=== PATIENT | male | born 1950 | race Caucasian/White ===

== ENCOUNTER 2022-09-22 11:48 | Emergency (ER) | payer MEDICARE, OTHER, SELFPAY ==
[2022-09-22 11:58] VITALS: BP 140/77; PULSE 55; RESP 16; TEMP 35.7; O2SAT 100
[2022-09-22 12:51] LABS: Lactate* 1.1 mmol/L (0.5-1.9)
[2022-09-22 12:54] LABS: Basophils Absolute Auto 0.01 K/uL (0.00-0.30); Basophils Percent Auto 0.1 % (0.0-3.0); Eosinophils Absolute Auto 0.13 K/uL (0.00-0.50); Eosinophils Percent Auto 1.7 % (0.0-7.0); Hematocrit 40.4 % (37.0-53.0); Hemoglobin* 13.5 gm/dL (13.5-17.5); Immature Granulocytes Abs Auto 0.05 K/uL (0.00-0.30); Immature Granulocytes Pct Auto 0.7 %; Lymphocytes Percent Auto 14.5 % (20-44); Mean Corpuscular HGB Conc 33 gm/dL (32-36); Mean Corpuscular Hemoglobin 27 pg (26-34); Mean Corpuscular Volume 81 fL (80-100); Monocytes Percent Auto 7.4 % (0.0-11.0); Neutrophils Percent Auto 75.6 % (42.0-72.0); Platelet Count* 121 K/uL (140-440); Red Blood Count 4.99 m/uL (4.30-5.90); White Blood Count* 7.53 K/uL (4.50-11.00)
[2022-09-22] MEDS: 0.9 % SODIUM CHLORIDE 1000 ml 1,000 ML IV (12:56)
[2022-09-22] MEDS: ONDANSETRON 2 MG/ML inj 4 MG IVP (12:56)
[2022-09-22 12:57] LABS: Slide Review Reflex No
[2022-09-22 13:09] LABS: Chloride* 107 mmol/L (96-114); Sodium* 139 mmol/L (135-149)
[2022-09-22 13:10] LABS: Potassium* 4.1 mmol/L (3.6-5.1)
[2022-09-22 13:11] LABS: D Dimer Quantitative* 0.32 ug/ml (0.00-0.50)
[2022-09-22 13:12] LABS: Creatinine* 0.9 mg/dL (0.5-1.5); Estimated Glomerular Filt Rate 91 ml/min
[2022-09-22 13:13] LABS: Alanine Aminotransferase* 18 U/L (4-50); Alkaline Phosphatase* 42 U/L (40-150); Aspartate Amino Transferase* 22 U/L (12-35); Bilirubin Direct* 0.1 mg/dL (0.0-0.5); Bilirubin Total* 0.5 mg/dL (0.1-1.5); Blood Urea Nitrogen* 28 mg/dL (7-30); Calcium* 8.9 mg/dL (8.4-10.6); Carbon Dioxide* 28 mmol/L (20-32); Glucose* 103 mg/dL (60-115); Lipase* 57 U/L (23-300); Total Protein* 6.6 g/dL (6.0-8.3)
--- NOTE | 2022-09-22 13:15 | CRLHL7_ITS ---
For Patients: As a result of the Century Cures Act, medical imaging exams and procedure reports are released immediately into your electronic medical record. You may view this report before your referring provider. If you have questions, please contact your health care provider. INDICATION: Abdominal pain. TECHNIQUE: CT abdomen and pelvis acquired with 95 cc Isovue 370 IV contrast. COMPARISON: None. FINDINGS: Lower chest: Scattered atelectasis. Liver: Mild decreased hepatic attenuation. Few scattered hypodensities, likely cysts. Gallbladder and bile ducts: Unremarkable. No stones or inflammation. No biliary dilatation. Pancreas: Fatty atrophy. No mass or inflammation. Spleen: Unremarkable. Normal in size. No masses. Adrenal glands: Unremarkable. No nodules. Kidneys: Right simple renal cyst. Additional hypodensities, too small to characterize.. No suspicious masses, stones, or hydronephrosis. GI tract: Mild colonic diverticulosis. Normal in caliber. Mild rectal wall thickening no sign of mass or inflammation. Vasculature: Abdominal aorta is normal in caliber. Mesenteric arteries are patent. Lymph nodes: No lymphadenopathy. Peritoneum/Abdominal Wall: Unremarkable. No sign of mass or infiltration. No free air or significant free fluid. Pelvis: Severe prostatomegaly abutting the base of the bladder. Mildly distended bladder with circumferential wall thickening. Bones: Degenerative changes. L4-L5 hardware fixation. Minimal anterolisthesis of L4 on L5. IMPRESSION: Severe prostatomegaly with mild circumferential bladder wall thickening, likely from chronic bladder outlet obstruction. Recommend correlation with urinalysis if UTI suspected. Mild rectal wall thickening which could suggest low grade proctitis. Otherwise, no acute intra-abdominal/pelvic abnormality. Please note that all CT scans at this facility use dose modulation, iterative reconstruction, and/or weight-based dosing when appropriate to reduce radiation dose to as low as reasonably achievable. Dictated by Conrad Gutierrez MD @ 09/22/2022 2:31:37 PM (Electronically Signed)
[2022-09-22 13:19] LABS: C Reactive Protein* < 0.5 mg/dL (0.5-1.0)
[2022-09-22 14:02] LABS: C.Difficile Negative (Negative); CDIFFEPI 027 PRESUMPTIVE NEGATIVE (Negative)
--- NOTE | 2022-09-22 17:15 | ED.NAVMDI ---
HPI - Nausea/Vomiting/Diarrhea General Date Seen: 09/22/22 Chief complaint: Diarrhea Stated complaint: Diarrhea, vomiting Time Seen by Provider: 09/22/22 12:10 Source: patient and family Mode of arrival: ambulatory Limitations: no limitations History of Present Illness HPI Narrative: Patient is a very nice 72-year-old gentleman who presents here with the 4-5 days of nausea vomiting and diarrhea as bowel movements have been anywhere from 6-8 times per day, described as yellow, no blood any there is vomitus or his diarrhea. He has some mild abdominal discomfort with this, but not great, he is worried that he may be dehydrated, has not been peeing a lot. He has been trying to take fluids. He does have a history of prostatitis, does take Flomax and also something for spasmodic bladder. Denies any fevers chills or sweats but recently came back from [place]. His was here with him was not sick at all. No history of antibiotic use within the past 3 months, and he has no history of C diff. MD elicited complaint: nausea, vomiting and diarrhea Treatment prior to arrival: Imodium Related Data Allergies Allergy/AdvReac Type Severity Reaction Status Date / Time No Known Drug Allergies Allergy Verified 09/22/22 13:37 Review of Systems Status of ROS: Reports: 10 or more systems reviewed and unremarkable except as noted in History and below [facility] Social History Smoking Status: Never smoker Do you use any of these nicotine containing products: None Second hand tobacco smoke exposure: No How often do you have a drink containing alcohol: never How often do you have six or more drinks on one occasion: Never AUDIT-C Alcohol total score: 0 Non-prescribed substance use: denies use service: No Exam Narrative: Exam Narrative: Dog is seen in room 6 he is in no apparent distress, speaking to me normally his right pupil is normal 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 Scaphoid abdomen, normal male genitalia, is noted. Extremities are all normal there is no do week complexion to his skin, he has good power in his upper lower extremities cranial nerves 3-12 are normal, and no deficits are noted. Const: Vital Signs, click to edit/add: Vital Signs - 24 hr 09/22/22 11:58 Temperature 96.2 F L Pulse Rate [Pulse Oximeter] 55 L Respiratory Rate 16 Blood Pressure [Ri ght Upper Arm] 140/77 H Pulse Oximetry 100 Oxygen Delivery Me thod Room Air Documenting provider has reviewed patient's vital signs: yes Course Course Hospital Course: Patient receives Zofran IV along with IV fluids here felt fair bit better, recheck of his abdomen showed no significant pain, I went over the results of his CT and his laboratory tests with him. Does have some mild thrombocytopenia, and there is no evidence of a C diff infection, his lactate was normal, his BUN creatinine were normal, he feels better. I think a better option for him going forward be use of Pepto-Bismol, 1 tablet 3 times a day, along with some Zofran, as opposed to the Imodium, is ongoing problem than stool test would be important, but a seems to be doing very well at the present time he was very comfortable this plan he will be discharged ambulatory with the above advice. We will see him back if he has signs and symptoms of worsening which we discussed. Vital Signs Vital signs: Initial Vital Signs Temperature 96.2 F L 09/22/22 11:58 Temperature Source Temporal Artery Scan 09/22/22 11:58 Pulse Rate 55 L 09/22/22 11:58 Pulse Rhythm Regular 09/22/22 11:58 Respiratory Rate 16 09/22/22 11:58 Blood Pressure 140/77 H 09/22/22 11:58 Blood Pressure Mean 98 09/22/22 11:58 Pulse Oximetry 100 09/22/22 11:58 Oxygen Delivery Method Room Air 09/22/22 11:58 Vital Signs Temperature 96.2 F L 09/22/22 11:58 Pulse Rate 55 L 09/22/22 11:58 Respiratory Rate 16 09/22/22 11:58 Blood Pressure 140/77 H 09/22/22 11:58 Pulse Oximetry 100 09/22/22 11:58 Oxygen Delivery Method Room Air 09/22/22 11:58 Temperature 96.2 F L 09/22/22 11:58 Pulse Rate 55 L 03/30/23 11:58 Respiratory Rate 16 09/22/22 11:58 Blood Pressure 140/77 H 09/22/22 11:58 Pulse Oximetry 100 09/22/22 11:58 Oxygen Delivery Method Room Air 09/22/22 11:58 MDM - Nausea/Vomiting/Diarrhea MDM Narrative Medical decision making narrative: Differential diagnosis includes but is not limited to viral gastroenteritis, drug food poisoning, pyloric stenosis, gastritis, pancreatitis, hepatitis, cholecystitis, appendicitis, bowel obstruction, hyperemesis, cyclic vomiting syndrome, bulimia nervosa, migraine headache, motion sickness and medication side effect. These include the life threatening complications of appendicitis, drug food poisoning and bowel obstruction. Differential diagnosis considered include but not limited to viral gastroenteritis, food poisoning, bowel obstruction, Clostridium difficile, Campylobacter, Shigella, rotavirus, medication side effects, dysentery, diverticulitis, Crohn's disease and colitis Medical Records Attestation: I reviewed the patient's medical records. Lab Data Attestation: I reviewed the patient's lab results. Labs: Lab Results 09/22/22 09/22/22 09/22/22 Range/Units 12:27 12:28 12:46 WBC 7.53 (4.50-11.00) K/uL RBC 4.99 (4.30-5.90) m/uL Hgb 13.5 (13.5-17.5) gm/dL Hct 40.4 (37.0-53.0) % MCV 81 (80-100) fL MCH 27 (26-34) pg MCHC 33 (32-36) gm/dL RDW Coeff of Ruth 13.0 (11.5-15.5) % Plt Count 121 L (140-440) K/uL Neut % (Auto) 75.6 H (42.0-72.0) % Lymph % (Auto) 14.5 L (20-44) % [facility] % (Auto) 7.4 (0.0-11.0) % Eos % (Auto) 1.7 (0.0-7.0) % Baso % (Auto) 0.1 (0.0-3.0) % Neut # (Auto) 5.70 (1.7-7.0) K/uL Lymph # (Auto) 1.10 (0.90-2.90) K/uL [facility] # (Auto) 0.60 (0.00-0.90) K/UL Eos # (Auto) 0.13 (0.00-0.50) K/uL Baso # (Auto) 0.01 (0.00-0.30) K/uL D-Dimer Quant (PE/DVT) 0.32 (0.00-0.50) ug/ml Sodium 139 (135-149) mmol/L Potassium 4.1 (3.6-5.1) mmol/L Chloride 107 (96-114) mmol/L Carbon Dioxide 28 (20-32) mmol/L BUN 28 (7-30) mg/dL Creatinine 0.9 (0.5-1.5) mg/dL Estimated GFR 91 ml/min Glucose 103 (60-115) mg/dL Lactate 1.1 (0.5-1.9) mmol/L Calcium 8.9 (8.4-10.6) mg/dL Total Bilirubin 0.5 (0.1-1.5) mg/dL Direct Bilirubin 0.1 (0.0-0.5) mg/dL AST 22 (12-35) U/L ALT 18 (4-50) U/L Alkaline Phosphatase 42 (40-150) U/L C-Reactive Protein < 0.5 L (0.5-1.0) mg/dL Total Protein 6.6 (6.0-8.3) g/dL Albumin 4.0 (3.3-5.0) g/dL Lipase 57 (23-300) U/L Stl C.difficile Tox PCR Negative (Negative) St C. diff Tox Epid 027 PRESUMPTIVE NEGATIVE (Negative) POC Troponin I 0.00 L (0.01-0.04) ng/ml Imaging Data CT scan - abdomen: Attestation: I have reviewed the pertinent imaging results. My impression: I did not see anything acute on his abdomen. Radiologist's impression: Patient: [facility] Facility:?[facility] Patient ID:?[id number] Site Patient ID:?[id number]. Site :?[id number] Study:?CT Abdomen/Pelvis W/ 95CC [id number]/30/2023 1:48:30 PM Ordering Physician:Bernadine Mast Final Report: INDICATION: Abdominal pain. TECHNIQUE: CT abdomen and pelvis acquired with 95 cc Isovue 370 IV contrast. COMPARISON: None. FINDINGS: Lower chest: Scattered atelectasis. Liver: Mild decreased hepatic attenuation. Few scattered hypodensities, likely cysts. Gallbladder and bile ducts: Unremarkable. No stones or inflammation. No biliary dilatation. Pancreas: Fatty atrophy. No mass or inflammation. Spleen: Unremarkable. Normal in size. No masses. Adrenal glands: Unremarkable. No nodules. Kidneys: Right simple renal cyst. Additional hypodensities, too small to characterize.. No suspicious masses, stones, or hydronephrosis. GI tract: Mild colonic diverticulosis. Normal in caliber. Mild rectal wall thickening no sign of mass or inflammation. Vasculature: Abdominal aorta is normal in caliber. Mesenteric arteries are patent. Lymph nodes: No lymphadenopathy. Peritoneum/Abdominal Wall: Unremarkable. No sign of mass or infiltration. No free air or significant free fluid. Pelvis: Severe prostatomegaly abutting the base of the bladder. Mildly distended bladder with circumferential wall thickening. Bones: Degenerative changes. L4-L5 hardware fixation. Minimal anterolisthesis of L4 on L5. IMPRESSION: Severe prostatomegaly with mild circumferential bladder wall thickening, likely from chronic bladder outlet obstruction. Recommend correlation with urinalysis if UTI suspected. Mild rectal wall thickening which could suggest low grade proctitis. Otherwise, no acute intra-abdominal/pelvic abnormality. Please note that all CT scans at this facility use dose modulation, iterative reconstruction, and/or weight-based dosing when appropriate to reduce radiation dose to as low as reasonably achievable. Dictated by Conrad Gutierrez MD @ 09/22/2022 2:31:37 PM (Electronic Signature) Discharge Plan Discharge Clinical Impression: Gastroenteritis Patient Disposition: Home w/ Parent or Adult Condition: Stable Instructions: Acute Nausea and Vomiting (DC), Acute Diarrhea (ED) Additional Instructions: Home rest. Use of yogurt, fluids, cheese, those sort of things, to help this resolve. Use of Zofran prescription given, this also helps nausea and also slows down bowel movements, switching from Imodium to maybe a Pepto-Bismol would be a better idea. Take 1 tablet 3 times a day for the next 5 days. Coke helps the situation too. Return for increasing abdominal pain, fevers, chills, or sweats or other issues I would suggest to come back and be seen, reassuring laboratory results here today and CT. I would suggest follow-up with urology for your enlarged prostate, as noted on the CT. Follow Up/Referrals: RAJESH NUNEZ DO [Primary Care Provider] - Stand Alone Forms: [employer] Info Instructions
== END 2022-09-22 15:35 | disposition home or self-care (01) ==
PROVIDERS: Emergency Provider Family Medicine; PCP Student in an Organized Health Care Education/Training Program
DX: K52.9 Noninfective gastroenteritis and colitis, unspecified (principal)
CPT/HCPCS: 36415; 74177; 80048; 80076; 83605; 83690; 84484; 85025; 85379; 86140; 87493; 93005; 96361; 96374; 99284; 99285; J2405; J7030; Q9967

== ENCOUNTER 2023-12-07 13:35 | Emergency (ER) | payer MEDICARE, OTHER, SELFPAY ==
[2023-12-07] VITALS (15 sets, daily range): BP systolic 140–151; BP diastolic 77–85; PULSE 49–58; RESP 16–18; TEMP 36.2; O2SAT 87–100; BMI 25.7
--- OUTSIDE RECORDS SUMMARY | 2023-12-07 13:40 | XMS_ITS | Clinical Summary ---
Author Organization [facility] Address [address] [place] [address] Care Team Providers Care Thorough[employer] Horse [employer] Manager Name Role Phone Elsewhere, Pcp Primary Care Provider Unavailabl e Source Comments Patient records contain information from all sites at [facility]. For routine questions regarding patient records, call [phone] during business hours, M-F 8:00 AM - 5:00 PM Central Time. Record requests for emergency care only can be directed to [phone] at any time.[facility] Allergies No known active allergies Medications Medication Sig Dispensed Refills Start Date End Date Status aspirin [address] tablet Take 81 mg by mouth every morning. Active tamsulosin (FLOMAX) 0.4 mg 24 hr capsule Take 0.4 mg by mouth every morning. Active cholecalciferol, vitamin D3, 25 mcg (1,000 Unit) tablet Take 2 tablets by mouth every morning. 10/27/2014 Active busPIRone (BUSPAR) 15 mg tablet Take 15 mg by mouth 2 (two) times a day. Takes at 9:00 AM and 2:00 PM 07/01/2020 Active dextroamphetamine-amp hetamine (ADDERALL) 20 mg tablet Take 20 mg by mouth daily. Takes between 2:00 - 3:00 PM 06/21/2020 Active amphetamine-dextroamp hetamine (ADDERALL XR) 30 mg 24 hr capsule Take 30 mg by mouth daily. Takes between 9:00 and 10:00 AM 06/21/2020 Active sertraline (ZOLOFT) 50 mg tablet Take 50 mg by mouth every morning. 11/30/2021 Active omeprazole (PriLOSEC) [address] capsule Take 20 mg by mouth 2 (two) times a day before breakfast and dinner. 08/23/2022 Active oxyBUTYnin (DITROPAN-XL) 10 mg 24 hr tablet Take 20 mg by mouth daily. 06/02/2022 Active allopurinoL (ZYLOPRIM) 100 mg tablet Take 200 mg by mouth daily. 08/15/2022 Active indomethacin (INDOCIN) 50 mg capsule Take 50 mg by mouth every 6 (six) hours as needed (gout flares). 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/23/2023 Radiculopathy Cervical 01/23/2023 Overactive Bladder 01/23/2023 Gout 01/23/2023 Fusion Of Spine Lumbar Region 01/23/2023 Arthroplasty Total Shoulder Replacement Status P ost Right 01/23/2023 Apnea Sleep Obstructive 03/07/2022 Contracture Dupuytren's 04/22/2020 Overview: Added automatically from request for surgery [id number] Anophthalmos Acquired 07/09/2018 Melanoma Choroid Left 06/30/2014 Attention Deficit Hyperactive Disorder 4 Overview: Disorder Attention Deficit Hyperactive (ADHD) Depressive Disorder 04/23/2014 Overview: Depression NOS Personal History Of Malignant Neoplasm Of Prosta te 05/12/2011 Gastroesophageal Reflux Disease NOS 09/17/2010 Benign Prostatic Hyperplasia With Lower Urinary Tract Symptom 07/07/2010 Hyperlipidemia Mixed 11/05/2008 Overview: Suggest recheck fall 2008 Anxiety Generalized Disorder 11/13/2006 Major Depressive Disorder, Recurrent, Unspecifie d 11/13/2006 Neuropathy Ulnar Bilateral Resolved Problems Problem Noted Date Diagnosed Date Resolved Date 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 01/23/2023 Overview: Added automatically from request for surgery [id number] Ectropion Left 07/27/2020 01/23/2023 Overview: Added automatically from request for surgery [id number] Ptosis Eyelid Left 07/09/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 02/03/2023 Pancytopenia 02/24/2017 01/23/2023 Limitation Of Motion Hand Joint Right 01/23/2023 Immunizations Name Administration Dates Next Due HepA, Unspecified 05/04/2009 Influenza, Unspecified 04/09/2014 Tdap 11/14/2013 typhoid vaccine, parenteral (discontinued) 05/05 Family History Medical History Relation Name Comments ADD Brother 1 stephon Coronary artery disease Brother 1 stephon Hyperlipidemia Brother 1 stephon ADD Brother 2 ronnie Coronary artery disease Brother 2 ronnie Coronary artery disease Father emeli Hyperlipidemia Father emeli Transient ischemic attack Father emeli Coronary artery disease Mother kayden Dementia Mother kayden Hyperlipidemia Mother kayden Blindness Neg Hx Diabetes Neg Hx Glaucoma Neg Hx Macular degeneration Neg Hx Retinal degeneration Neg Hx Retinal detachment Neg Hx Strabismus Neg Hx Stroke Neg Hx Thyroid disease Neg Hx Relation Name Status Comments Brother 1 stephon Brother 2 ronnie Father emeli Mother kayden Social History Tobacco Use Types Packs/Day Years Used Date Smoking Tobacco: Former Cigarettes 0.3 4 0 06/26/1970 - 06/26/1974 Smokeless Tobacco: Never Tobacco Cessation:Counseling Given: Not Answered Alcohol Use Standard Drinks/Week Comments Yes 5 (1 standard drink = 0.6 oz pur e alcohol) Humiliation, Afraid, Rape, and Kick questionnair e Answer Date Recorded Within the last year, have y ou been afraid of your partner or ex-partner? No 01/23/2023 Within the last year, have y ou been humiliated or emotionally abused in other ways by your partner or ex-partner? No Within the last year, have y ou been kicked, hit, slapped, or otherwise physically hurt by your partner or ex-partner? No 01/23/2023 Within the last year, have y ou been raped or forced to have any kind of sexual activity by your partner or ex-partner? No 01/23/2023 Social Connection and Isolat ion Panel [NHANES] Answer Date Recorded In a typical week, how many times do you talk on the phone with family, friends, or neighbors? Once a week 11/23/2021 How often do you get togethe r with friends or relatives? Twice a week 11/23/2021 How often do you attend chur or church services? More than 4 times per year 11/23/2021 Do you belong to any clubs o r organizations such as mu-ism groups, unions, fraternal or athletic groups, or school groups? Yes 11/23/2021 How often do you attend meet ings of the clubs or organizations you belong to? More than 4 times per year 11/23/2021 Are you , , di vorced, , never , or living with a partner? 11/23/2021 AUDIT-C Answer Date Recorded Q1: How often do you have a drink containing alcohol? 4 or more times a week 11/23/2021 Q2: How many drinks containi ng alcohol do you have on a typical day when you are drinking? 1 or 2 2 Q3: How often do you have si x or more drinks on one occasion? Less than monthly 11/23/2021 Overall Financial Resource Strain (CARDIA) Answe r Date Recorded How hard is it for you to pa y for the very basics like food, housing, medical care, and heating? Not hard at all 01/23/2023 [facility] [place] [facility] - Occupational Stress Questionnaire Answer Date Recorded Do you feel stress - tense, restless, nervous, or anxious, or unable to sleep at night because your mind is troubled all the time - these days? Only a little 11/23/2021 Exercise Vital Sign Answer Date Recorde d On average, how many days pe r week do you engage in moderate to strenuous exercise (like a brisk walk)? 5 days 01/23/2023 On average, how many minutes do you engage in exercise at this level? 60 min 01/23/2023 Hunger Vital Sign Answer Date Recorded Within the past 12 months, y ou worried that your food would run out before you got the money to buy more. Never true 01/24/20 23 Within the past 12 months, t he food you bought just didn't last and you didn't have money to get more. Never true 01/23/2023 PRAPARE - Transportation Answer Date Re corded In the past 12 months, has l ack of transportation kept you from medical appointments or from getting medications? No 12/26 In the past 12 months, has l ack of transportation kept you from meetings, work, or from getting things needed for daily living? No 01/23/2023 Nutrition Answer Date Recorded Nutrition: EVOO Fat Source No 01/23 On average, how many serving s of fruits and vegetables do you eat per day (serving size is equal to 1 cup or approximately the size of a tennis ball)? 3-5 01/23/2023 Dental Answer Date Recorded Dental: Regular Dentist No 01/24/20 Employment Answer Date Recorded Employment status Retired 01/23/2023 Housing Stability Answer Date Recorded What is your living situation today? I have a [facility] place to live 01/23/2023 Education Answer Date Recorded What is the highest level of school you have completed or the highest degree you have received? Bachelor's degree (e.g., BA, AB, BS) 04/22/2020 Sex and Gender Information Value Date Recorded Sex Assigned at Male 07/09/2018 2:54 PM [employer] Gender Identity Male 07/09/2018 2:54 PM [employer]ER Sexual Orientation Straight 07/09/2018 2: 54 PM [employer] M[employer]ER Last Filed Vital Signs Vital Sign Reading Time Taken Comments Blood Pressure 123/75 02/16/2023 12:38 PM CDT Pulse 70 02/16/2023 12:38 PM CDT Temperature 36.7 ??C (98.1 ??F) 02/16/2023 12:38 PM C DT Respiratory Rate 16 02/16/2023 8:11 AM CDT Oxygen Saturation 95% 02/16/2023 12:38 PM CDT Inhaled Oxygen Concentration - - Weight 90.4 kg (199 lb 4.7 oz) 02/15/2023 8:51 A M CDT Height 182.5 cm (5' 11.85) 02/15/2023 8:51 AM C DT Body Mass Index 27.14 02/15/2023 8:51 AM CDT Plan of Treatment Health Maintenance Due Date Last Done Comments CT Colonography 1950 Cologuard 1950 Depression Monitoring (PHQ-9) 1950 Hepatitis C Screening 1950 Zoster Vaccines (2 of 3) 02/24/2016 12/30/2015, 06/2015 Lipid (Cholesterol) Screening 06/29/2021, 09/19/2018, 04/10/2018, Additional history exists Fall Risk Screen (Annual) 06/26/2023 COVID-19 Vaccine (7 - 2022-2 4 season) 2023 04/15/2023, 05/16/2022, 11/24/2021, Additional history exists DTaP,Tdap,and Td Vaccines (2 - Td or Tdap) 11/15/2023 11/14/2013, 05/02/2012, 07/03/2007 Colonoscopy 07/23/2024 07/23/2019, 02/2014, 12/04/2013 (Performed elsewhere) Colorectal Cancer Surveillance 07/23/2024 Fasting Glucose for Diabetes Screening 06/08/2026 06/08/2023, 01/31/2023, 08/01/2022, Additional history exists Pneumococcal vaccine (65+ years) Completed 12/15/19, 10/31/2016 Hepatitis A Vaccines Completed 04/25/2019, 05/05/2009, 05/04/2009 Influenza Vaccine Completed 04/15/2023, , 02/24/2021, Additional history exists Abdominal Aortic Aneurysm (A AA) Screen Completed 07/28/2023, 12/06/2021, 04/16/2020, Additional history exists Medical Devices Implanted Type Area Ammunition Assembly I Laborer Device Identifier Shelf Expiration Date Model / Serial / Lot Cement Bone Small - Garcia [id number] Implanted:Qty: 1 on 05/27/2011 [facility] Other [place] Description:Device Manufactu rer - [place] Marvin.. Device Status Text - [id number]. Medpor - Maritza Wedge Left Regular - Garcia [id number] Implanted:Qty: 1 on 10/29/2014 [facility] Prosthesis Other/Legacy - See Implant Description Other/Legacy - See Implant Description Description:Device Manufactu rer - [employer]. Body Location - Other. Left. Device Status Text - [facility] [id number]. Sphere Medpor Sst Ez 20mm - [id number] Implanted:Qty: 1 on 07/02/2014 Ocular (Eye) Implant Other/Legacy - See Implant Description Other/Legacy - See Implant Description Description:Device Manufactu rer - [employer]. Body Location - Other. Left. Device Status Text - [id number]. Conformer [place] Medium - [id number] Implanted:Qty: 1 on 07/02/2014 Ocular (Eye) Implant Other/Legacy - See Implant Description [employer] Description:Device Manufactu rer - [employer]. Body Location - Other. Left. Device Status Text - [id number]. Reunion-Hum Stem Press-Fit 14mm - [id number] Implanted:Qty: 1 on 05/27/2011 Shoulder Implant Other/Legacy - See Implant Description Shanell Description:Device Manufactu rer - Shanell Marvin.. Body Location - Other. Right. Device Status Text - [id number]. Reunion-Glenoi d S-Pressure X3 Sz48 - [id number] Implanted:Qty: 1 on 05/27/2011 Shoulder Implant Other/Legacy - See Implant Description [place] Description:Device Manufactu rer - Shanell Marvin.. Body Location - Other. Right. Device Status Text - [id number]. Reunion-Soo l Head Std 48 X 24 - [id number] Implanted:Qty: 1 on 05/27/2011 Shoulder Implant Other/Legacy - See Implant Description Shanell Description:Device Manufactu rer - Shanell Marvin.. Body Location - Other. Right. Device Status Text - [id number]. Conversions - Default Historical Implant Device Implanted:12/25 (Quantity not on file) Shoulder Implant Right: Shoulder Description:Body Location - Shoulder R. TSA. Device Status Text - Shoulder Joint. Hum Cup Reu 4x36 - [id number] Implanted:Qty: 1 on 02/15/2023 by Douglas Lipscomb M.D., Ph.D. at [facility] Shoulder Implant Right: Shoulder [place] 01/30/2027 [id number] / / [id number] Hum Ins Reu X3 Rvrs 10x36 - [id number] Implanted:Qty: 1 on 02/15/2023 by Douglas Lipscomb M.D., Ph.D. at [facility] Shoulder Implant Right: Shoulder Shan[place] 01/25/2027 [id number] / / [id number] Tornier Perform Reversed Glenoid, Press-Fit Short Post, Length: 7mm Implanted:Qty: 1 on 02/15/2023 by Douglas Lipscomb M.D., Ph.D. at [facility] Shoulder Implant Right: Shoulder [facility] 12/23/2027 [id number] / [id number] / Tornier Perform Reversed Augmented Glenoid, Full-Wedge Augment Baseplate, 29mm, Angle: 15 Degree Implanted:Qty: 1 on 02/15/2023 by Douglas Lipscomb M.D., Ph.D. at [facility] Shoulder Implant Right: Shoulder [facility] 12/31/2027 [id number] / [id number] / Tornier Perform Reversed Glenoid, Eccentric Glenosphere Cocr, Diameter: 36mm, Offset +2mm Implanted:Qty: 1 on 02/15/2023 by Douglas Lipscomb M.D., Ph.D. at [facility] Shoulder Implant Right: Shoulder [facility] 10/07/2027 [id number] / [id number] / Conversions - Default Historical Implant Device Implanted:12/25 (Quantity not on file) Spine Implant Spine Lumbar Description:Body Location - Lumbar. Device Status Text - Spine Implant. Explanted Type Area Ammunition Assembly I Laborer Device Identifier Shelf Expiration Date Model / Serial / Lot Splnt Ext Fx Dgt Pip Jnt Lg - [id number] Implanted:Qty: 1 on 06/03/2020 by Mehdi Diego M.D. at [facility]/[employer] e.g. pins/screws/ rods [employer] 05/26/2029 [id number] / / [id number] Procedures Procedure Name Priority Date/Time Associated Diagnosis Comments CT ABDOMEN PELVIS WITH IV CONTRAST RAD - Routine (most inpatients and all outpatients) 07/28/2023 9:48 AM [employer] M[employer]ER Melanoma Choroid Left (HCC) EXTI COMPREHENSIVE METABOLIC PANEL, S/P Routine 06/08/2023 3:55 PM [employer] M[employer]ER EXTI LIPID PANEL W REFLEX MEASURED LDL Routine 06/29/2020 10:48 AM E[employer] SPICE MIXER from Last 3 Months or Most Recently Relevant to Health Maintenance Results * CT Abdomen Pelvis with IV Contrast (07/28/2023 9:48 AM E[employer] AND SPICE MIXER) Anatomical Region Laterality Modality Abdomen, Pelvis, Abdominal R ST LOS, Abdominal ARZ LOS, Abdominal FLA LOS N/A Computed Tomograp hy, Computed Tomography 07/28/2023 9:25 AM E[employer]ICE MIXER Impressions 07/28/2023 10:23 AM E[employer] SPICE MIXER 1. No evidence of metastatic disease within abdomen pelvis. 2. Stable incidental findings. Narrative 07/28/2023 10:23 AM E[employer] AND SPICE MIXER EXAM: ??CT ABDOMEN PELVIS WITH IV CONTRAST COMPARISON: ??Prior CT 12/23/[address]/MRI scans. FINDINGS: ??Normal size and morphology of liver. Previously seen hepatic cysts remain stable. No significant intrahepatic biliary ductal dilatation. Intrahepatic vasculature within normal limits. Mild splenomegaly. The pancreas, gallbladder, adrenal glands are within normal limits. Stable renal cysts. The bladder is distended and minimally thick-walled. The prostate gland is markedly enlarged. No significant adenopathy within abdomen pelvis. No ascites. Previously seen tiny presacral lymph nodes remain stable (series 4, image [id number]). Colonic diverticulosis. Normal caliber abdominal aorta with minimal scattered calcification. Mild to moderate degenerative changes thoracolumbar vertebrae with stable lower lumbar spinal fixation hardware/surgery changes. This examination was performed in conjunction with a CT of the chest, which will be reported separately. Procedure Note Wolf Villalta M.B.B.S. [place]. - 07/28/2023 EXAM: CT ABDOMEN PELVIS WITH IV CONTRAST COMPARISON: Prior CT 12/23/[address]/MRI scans. FINDINGS: Normal size and morphology of liver. Previously seen hepaticcysts remain stable. No significant intrahepatic biliary ductaldilatation. Intrahepatic vasculature within normal limits. Mild splenomegaly. The pancreas, gallbladder, adrenal glands are withinnormal limits. Stable renal cysts. The bladder is distended and minimallythick-walled. The prostate gland is markedly enlarged. No significant adenopathy within abdomen pelvis. No ascites. Previouslyseen tiny presacral lymph nodes remain stable (series 4, image [id number]).Colonic diverticulosis. Normal caliber abdominal aorta with minimalscattered calcification. Mild to moderate degenerative changes thoracolumbar vertebrae with stablelower lumbar spinal fixation hardware/surgery changes. This examination was performed in conjunction with a CT of the chest,which will be reported separately. IMPRESSION: 1. No evidence of metastatic disease within abdomen pelvis. 2. Stable incidental findings. Chyna Hanks M.D. IMG CT PROCEDURES from Last 3 Months or Most Recently Relevant to Health Maintenance Care Teams Thor[employer] Horse [employer] Manager Relationship Specialty Start Date End Date Elsewhere, Pcp PCP - General Internal Medicine 02/01/23
--- OUTSIDE RECORDS SUMMARY | 2023-12-07 13:40 | XMS_ITS | Continuity of Care Document ---
Author Organization [facility] Address [address] [place] [address] Phone Care Team Providers Care Picture Frames Inspector Name Role Phone Christiano KILPATRICK, [place] Unavailable Unavailable Allergies, Adverse Reactions, Alerts Substance Reaction Status Criticality No Known Allergies Active No Inform ation Medications Medication Instructions Dosage Effective Dates (start - stop) Status Comments Vicodin 5 mg-500 mg Tab one every 8 hours as needed - Active Celebrex 200 mg Cap One every day - Ac tive Procedures Procedure Date Office/Outpatient Visit,New, Mod 2020 X Ray Exam Entire Spine 2/3 VW 21 X-Ray Exam Of Lower Spine, Bending X Ray Exam Entire SPI 4/5 VW Office/outpatient visit,est, low 2008 X-ray exam lwr spine, min 4 views Postop followup visit X-ray exam lower spine 2-3 views 2007 Postop followup visit X-ray exam lower spine 2-3 views 2007 Lumbar spine fusion, posterolateral Lumbar spine fus, pstr intrbdy sngl Remove lumbar spine lamina, 1 seg Remove added spine lamina, 1 seg 2007 Insert spine fixation, posterior 2007 Apply spinal prosthetic device 08 Aspiration, bone marrow Autograft, spine surgery, local 008 PA Assist Lumbar spine fusion, posterola teral PA Assist Lumbar spine fus, pstr intrbdy sngl PA Assist Remove lumbar spine lamina, 1 seg PA Assist Remove added spine lamina, 1 s eg PA Assist Insert spine fixation, posteri or PA Assist Apply spinal prosthetic device Office/outpatient visit,est, mod 2007 Office/outpatient visit,new, mod 2006 X-ray exam lower spine 2-3 views 2006 Results Test Name Date and Time Measure Units Reference Range Abnormal Flag Status Comments Panel Description: Transfora kenny Etxxzcf-Trjesi-Zpzayacqynuyfj (TRANSLUMNONPART) Unknown TRANSLUMNONPART 21 17:25:19 (See Attached Document) Unknown (See Attached Document) Panel Description: Transfora kenny Cplztpi-Nwtfkp-Urbphykmeuaynv (TRANSLUMNONPART) Unknown Image Transforaminal Kcjqmpk-Wcgukt-O onparti Advance Directives Directive Yes / No Effective Date File Name No Information Encounters Encounter Description Practice Location Reason(s) For Visit Diagnoses Date Provider Providers Copied on Encounter Office/Outpat ient Visit,New, Mod [facility], [address], [place], [place], [id number], [place] tel:[phone] [facility] No Information 1 Christiano Bethea. [facility], [address] [place] [address], [address], [place], [place], [id number] , [place]. tel:[phone] Referring Provider: [place], [facility] [address], [address], [place], [address] . tel:[phone] Office/outpat ient visit,est, low Z [facility], [address] [place], [place] [address], [place], [address], [place] tel:[phone] [facility] No Information 8200 9 Christiano Bethea. [facility], [address] [place] [address], [address], [place], [place], [id number] , [place]. tel:[phone] Referring Provider: Matthew Vergara, [facility] [address] [facility], [place], [address]. tel:[phone] Z [facility], [address] [place], [place] [address] [place] [address], [address], [place] tel:[phone] [facility] No Information 3-200 8 [place]. [facility], [address] [place] [address], [address], [place], [id number] , [place]. tel:[phone] Referring Provider: Matthew Vergara, [address], [place], [address]. tel:[phone] Z [facility], [address], [facility], [place] tel:[phone] [facility] No Information 9-200 8 [place]. [facility], [address] [place] [address] [place] [address], [id number] , [place]. tel:[phone] Referring Provider: Matthew Vergara, [address], [place], [address]. tel:[phone] Z [facility], [address], [address], [place] tel:[phone] [facility] No Information 6-200 8 [place]. [facility], [address] [place] [address], [address], [place], [id number] , [place]. tel:[phone] Referring Provider: Matthew Vergara [facility] [address] [facility], [place], [address]. tel:[phone] Office/outpat ient visit,est, mod Z [facility], [address] [place], [place] [address] [place] [address], [address], [place] tel:[phone] [facility] No Information 8-200 8 [place]. [facility], [address] [place] [address], [address], [place], [id number] , . tel:[phone] Referring Provider: [facility], [facility] [address], [place], [address]. tel:[phone] Office/outpat ient visit,new, mod Z [facility], [address] [facility] [address], [place], [address], [place] tel:[phone] [facility] No Information 6200 7 Christiano Bethea. [facility], [address] [place] [address], [address], [place], [place], [id number] , [place]. tel:[phone] Referring Provider: Matthew Vergara, [facility] [address], [place], [address]. tel:[phone] Family History Family Member Type Diagnosis Age At Onset No Information Payers Payer name Insurance type Covered alliance party ID Jj mcgregor(s) Medicare MB [id number] [employer] [id number] Social History Type Description Quantity Date Captured Comments Alcohol Use Details Unknown Caffeine Use Details Unknown Tobacco Use Status Current non-smoker Smoking Status Never smoker Non-Smoking Tobacco Use Details : No Details Available : No Details Available Sex Male Vital Signs Date / Time: Height Weight BMI Pulse Rate Blood Pressure Temperature Respiratory Rate Body Surface Area Head Circumference Head Circ. Percentile Wt./Rolando. Percentile BMI percentile Pulse Ox Inhaled Ox 2:13 PM 73.00 in 94.347 kg (208.00 lbs) 27.4 4 kg/m eter (2) Chief Complaint And Reason For Visit No Information Reason For Referral Reason For Referral No Information Plan Of Treatment Date Type Action Status Future Order: Radiology Order PA /Lateral Full Spine (PALatFS), Ordered on: Ordered Future Order: Radiology Order F/ E Lumbar (F/ELumb), Ordered on: Ordered History Of Present Illness Encounter Date Complaint History Of Prese nt Illness No Information Functional Status Date Functional Assessmen t No Information Instructions Date Instruction Additional Infor mation No Information Assessments Type Assessment Date No Information Patient Care Teams Name Effective Dates (start - stop) Status Members No Information
--- OUTSIDE RECORDS SUMMARY | 2023-12-07 13:40 | XMS_ITS | Clinical Summary ---
Author Organization [employer] Address [place], [place] [address] Care Team Providers Care Drafting Engineer Name Role Phone Raza Marks MD Unavailable Unavailable River Daryb MD Unavailable Cathleen Patel DO Primary Care Provider Laura Trimble MD Unavailable Marva Bran NP Unavailable Allergies No known active allergies Medications Medication Sig Dispensed Refills Start Date End Date Status docusate (STOOL SOFTENER) 100 mg capsuleIndications :Unspecified constipation Take 1 capsule by mouth 2 times daily if needed for Constipation. 0 07/07/2010 Active cholecalciferol (Vitamin D) 1,000 unit capsuleIndications :Vitamin D deficiency Take 1 Capsule (1,000 units) by mouth once daily. 0 07/01/2021 Active aspirin (ECOTRIN) 81 mg enteric coated tabletIndications: Blue toe syndrome of right lower extremity (HC) Take 1 Tablet (81 mg) by mouth once daily with a meal. 0 07/01/2021 Active indomethacin (INDOCIN) 50 mg capsuleIndications :Gout, unspecified cause, unspecified chronicity, unspecified site Take 1 Capsule (50 mg) by mouth every 6 hours if needed for Gout Pain. 30 Capsule 03/17/2023 Active albuterol HFA (ProAir HFA) 90 mcg/actuation inhalerIndications :Bronchitis with bronchospasm Inhale 1-2 Puffs by mouth every 6 hours if needed for Shortness of Breath 1st choice. 1 Each 07/03/2023 Active benzonatate (Tessalon Perles) 100 mg capsuleIndications :Bronchitis with bronchospasm Take 1 Capsule (100 mg) by mouth 3 times daily if needed for Cough. 30 Capsule 07/03/2023 Active triamcinolone 0.1 % ointmentIndication s:Pruritus Apply to affected areas on the arms, legs, and trunk. 453.6 g 2 07/18/2023 Active allopurinoL (ZYLOPRIM) 100 mg tabletIndications: Gout of big toe Take 3 Tablets (300 mg) by mouth once daily. Take 3 tablets by mouth daily 270 Tablet 1 08/01/2023 Active busPIRone (BUSPAR) 15 mg tabletIndications: Anxiety state Take 1 Tablet (15 mg) by mouth two times daily. 180 Tablet 1 08/01/2023 Active omeprazole (PRILOSEC) 20 mg Delayed-Release capsuleIndications :Gastroesophageal reflux disease with esophagitis without hemorrhage Take 1 Capsule (20 mg) by mouth two times daily before meals. 180 Capsule 3 08/01/2023 Active tamsulosin (FLOMAX) 0.4 mg capsuleIndications :Lower urinary tract symptoms (LUTS) Take 1 Capsule (0.4 mg) by mouth once daily after a meal. 90 Capsule 3 08/01/2023 Active triamcinolone (ARISTOCORT; KENALOG) 0.1 % creamIndications:I tching Apply topically to affected area(s) two times daily. 454 g 3 08/22/2023 Active camphor-menthol, 0.5%-0.5%, (Sarna OriginaL) lotionIndications: Itching Apply topically to affected area(s) each time if needed for Itching. 222 mL 3 08/22/2023 Active cetirizine (ZyrTEC) 10 mg tabletIndications: Itching Take 1 Tablet (10 mg) by mouth once daily. 90 Tablet 1 08/22/2023 Active hydrOXYzine HCL (ATARAX) 25 mg tabletIndications: Pruritus Take 1 tablet (25 mg) at bedtime 30 Tablet 3 08/22/2023 Active dextroamphetamine- amphetamine (ADDERALL) 20 mg tabletIndications: Attention deficit disorder (ADD) without hyperactivity Take 1 Tablet (20 mg) by mouth once daily. 30 Tablet 08/31/2023 Active dextroamphetamine- amphetamine (ADDERALL XR) 30 mg Extended-Release capsuleIndications :Attention deficit disorder (ADD) without hyperactivity Take 1 Capsule (30 mg) by mouth once daily. 30 Capsule 09/05/2023 Active zolpidem (AMBIEN) 10 mg tabletIndications: Other insomnia TAKE 1 TABLET BY MOUTH EVERY DAY AT BEDTIME NEEDED FOR SLEEP 90 Tablet 10/09/2023 Active dextroamphetamine- amphetamine (Adderall XR) 30 mg Extended-Release capsuleIndications :Attention deficit disorder (ADD) without hyperactivity Take 1 Capsule (30 mg) by mouth once daily. 30 Capsule 11/15/2023 4 Active dextroamphetamine- amphetamine (Adderall XR) 30 mg Extended-Release capsuleIndications :Attention deficit disorder (ADD) without hyperactivity Take 1 Capsule (30 mg) by mouth once daily. 30 Capsule 12/15/2023 Active dextroamphetamine- amphetamine (AdderalL) 20 mg tabletIndications: Attention deficit disorder (ADD) without hyperactivity Take 1 Tablet (20 mg) by mouth once daily. 30 Tablet 11/15/2023 4 Active dextroamphetamine- amphetamine (AdderalL) 20 mg tabletIndications: Attention deficit disorder (ADD) without hyperactivity Take 1 Tablet (20 mg) by mouth once daily. 30 Tablet 12/15/2023 Active sertraline (ZOLOFT) 50 mg tabletIndications: Anxiety state,Depression, recurrent (HC) TAKE ONE TABLET EVERY MORNING 90 Tablet 1 10/20/2023 Active oxybutynin XL (DITROPAN XL) 10 mg CR tabletIndications: Overactive bladder TAKE 2 TABLETS BY MOUTH DAILY 180 Tablet 11/05/2023 Active CPAPIndications:OS A (obstructive sleep apnea) CPAP machine for home use at pressure 5-15 cmw, nasal mask x1/3month with nasal cushion x2/mo 1 Each 11 11/27/2023 Active CPAPIndications:OS A (obstructive sleep apnea) CPAP machine for home use at pressure 4-15 cmw, nasal mask x1/3month with nasal cushion x2/mo 1 Each 11 03/28/2023 4 Discontinued (Reorder (E-cancel not sent)) dextroamphetamine- amphetamine (Adderall XR) 30 mg Extended-Release capsuleIndications :Attention deficit disorder (ADD) without hyperactivity Take 1 Capsule (30 mg) by mouth once daily. 30 Capsule 10/16/2023 4 dextroamphetamine- amphetamine (AdderalL) 20 mg tabletIndications: Attention deficit disorder (ADD) without hyperactivity Take 1 Tablet (20 mg) by mouth once daily. 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 CT March 2020) Needs repeat CT 4 to 6 months. 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 Prostate CA 10/05/2010 Overview: Patient following with serial PSAs - being monitored by Urology. Being followed at [facility]: S/P recent biopsy; quarterly PSA and annual Bx. 01/08/2012 Last appointment on 09/01/2021. Repeat prostate biopsy in 18 to 24 months. Gastroesophageal reflux disease 09/17/2010 Peyronie disease 08/23/2010 Contracture of palmar fascia 07/07/2010 Overview: Bilateral Headache(784.0) 07/07/2010 Memory loss 07/07/2010 Overview: Mom with Dementia. 07/07/2010 Unspecified constipation 07/07/2010 Hypertrophy of prostate with urinary obstruction and other lower urinary tract symptoms (LUTS) 07/07/2010 Fatigue 07/07/2010 Inguinal hernia without ment ion of obstruction or gangrene, unilateral or unspecified, (not specified as recurrent) 02/25/2009 Overview: New (asymptomatic) Left Inguinal Hernia Mixed hyperlipidemia 11/05/2008 Overview: Suggest recheck fall 2008 Benign neoplasm of colon 08/28/2008 Overview: Colonoscopy 08/2008 polyp repeat in 5 years Colonoscopy 06/2019 polyp, repeat in 5 years Degeneration of lumbar or lumbosacral interverte bral disc 05/05/2007 Depression, recurrent 11/13/2006 Anxiety state, unspecified 11/13/2006 Attention deficit disorder (ADD) without hyperac tivity 11/13/2006 Generalized anxiety disorder 11/13/2006 Resolved Problems Problem Noted Date Diagnosed Date Resolved Date Lumbar radicular pain 07/01/20212021 Unspecified ectropion of lef t eye, unspecified eyelid 07/27/2020 10/11/2021 Overview: Added automatically from request for surgery [id number] Controlled substance agreement signed 10/20/2016 01/02/2019 Overview: Signed: 10/05/2011 Dr. Alan Singh / psychiatry Lumbar disc herniation 11/05/201210/11 Arthritis of right shoulder region 2010 10/11/2021 Unspecified visual loss 07/07/201009/24 Overview: Left; acute onset over past month. improved with eye drops. 08/02/2010 Possible Choroidal Melanoma; referred by Retinal specialist to [facility]. 09/14/2010 Encounters Date Type Department Care Team Description 11/27/2023 9:30 AM CDT Office Visit [facility] [address] [place] [address] Tu Claros MD Sleep Follow-up 11/27/2023 Travel 11/03/2023 Refill [facility] [address] [place] [address] Cathleen Patel DO Refill Request (Oxybutynin Xl) 10/24/2023 2:30 PM CDT Office Visit [facility] [address] [place] [phone] Laura Trimble MD Consult (Pruritis) 10/24/2023 Travel 10/20/2023 Refill [facility] [address] [place] [address] Cathleen Patel DO Refill Request (Sertraline) 10/19/2023 Refill [facility] [address] [place] [address] Cathleen Patel DO Refill Request (Dextroamphetamine-am phetamine, Dextroamphetamine-amp hetamine) 10/07/2023 Refill [facility] [address] [place] [address] Cathleen Patel DO Refill Request (Zolpidem) 10/02/2023 Telephone [facility] [address] [place] [address] Marva Bran NP Appointment 10/01/2023 Telephone [facility] [address] [place], [place] [id number] Pawan Caceres MD Results 09/25/2023 1:20 PM CDT Office Visit [facility] [address] [place] [address] Pawan Caceres MD Allergies ( Consult-ITCHING (referred by Dr Forrest)) 09/24/2023 Travel from Last 3 Months Immunizations Name Administration Dates Next Due COVID-19 vaccine (Moderna 100mcg/0.5mL) PF, MDV 05/24/2021,09/08/2020,08/11/2020 COVID-19 vaccine (Moderna 50mcg/0.5mL) 12YO+ BIVALENT PF, MDV 05/16/2022 Hepatitis A (Adult) 04/25/2019,05/05/2009 Hepatitis A, Unspecified 05/04/2009 Hepatitis B (Adult) 04/25/2019 Influenza Virus, Unspecified 04/09/2014 Influenza, High-dose Inactivated 02/19/2020 Influenza, High-dose Quadriv alent Inactivated 05/16/2022,02/19/2020 Influenza, IIV3 (Age >=3 years) 05/02/20 12,07/07/2010,05/05/2009,2006 Influenza, IIV4 04/27/2015,04/03/2014 Influenza, Inactivated AIIV4 (Age 65+ Years) Preserv Free 02/24/2021 Influenza, Inactivated IIV3 (Age 65+ Years) Preserv Free 04/15/2019,04/10/2018 Vincentian Encephalitis 05/27/2019,04/25/2019 MMR 04/25/2019 Pneumococcal Poly,23-Valent (Pneumovax) 12/14/2017 Pneumococcal conj 13-Valent (Prevnar 13) 10/31/2016 Td (Age >=7 Years) 03/05/1998 Td, Preservative Free (age > = 7 Years) 05/02/2012,07/03/2007 Tdap 11/14/2013 Typhoid (injectable) 04/25/2019,05/05/2009 Typhoid Parenteral,Killed 05/05/2009 Zoster (Zostavax-ZVL, live) 12/30/2015, 6 Family History Medical History Relation Name Comments Heart Disease Brother 3 Mak choe 2006; gonzález henson well Heart Disease Father Benjie at 72 dur ing CABG Heart Disease Mother Briseyda Other Mother Briseyda Dementia a t 92 Psychiatric illness Son 3 add Relation Name Status Comments Brother 1 Campbell Alive Brother 2 Alive Brother 3 Mak Alive Daughter 1 Kayla Alive Daughter 2 Griselda Sanders Alive Father Benjie (Age 72) Maternal Aunt Maternal Grandfather Maternal Grandmother Maternal Uncle Mother Briseyda Alive Paternal Aunt Paternal Grandfather Paternal Grandmother Paternal Uncle Son 1 Kevan Alive Son 2 Jay Jay Alive Son 3 Social History Tobacco Use Types Packs/Day Years Used Date Smoking Tobacco: Former Cigarettes 0.5 4 0 06/26/1970 - 06/26/1974 Passive Smoke Exposure: Never Smokeless Tobacco: Never Tobacco Cessation:Counseling Given: Yes Alcohol Use Standard Drinks/Week Comments Yes 0 (1 standard drink = 0.6 oz pure alcohol) occas wine, CD treatment in 1981 PHQ-2 Answer Date Recorded PHQ-2 TOTAL SCORE 0 08/01/2023 Social Connections Answer Date Recorded Frequency of Communication with Friends and Fami ly 0 07/17/2023 Alcohol Use Answer Date Recorded How often do you have a drink containing alcohol ? 3 09/01/2021 How many drinks containing a lcohol do you have on a typical day when you are drinking? 0 09/01/2021 How often do you have five or more drinks on one occasion? 0 09/01/2021 Financial Resource Strain Answer Date R ecorded Difficulty of Paying Living Expenses 3 07/17/2023 Difficulty of Paying Living Expenses Not on file 07/17/2023 Food Insecurity Answer Date Recorded Worried About Running Out of Food in the Last Ye ar 1 07/17/2023 Transportation Needs Answer Date Record ed Lack of Transportation (Medical) 1 07/17/2023 Housing Stability Answer Date Recorded Unable to Pay for Housing in the Last Year 1 07/17/2023 Sex and Gender Information Value Date Recorded Sex Assigned at Not on file Gender Identity Not on file Sexual Orientation Not on file Obstetrics History Last Filed Vital Signs Vital Sign Reading Time Taken Comments Blood Pressure 126/74 11/27/2023 9:31 AM CDT Pulse 64 11/27/2023 9:31 AM CDT Temperature 36.7 ??C (98 ??F) 10/24/2023 2:30 PM CDT Respiratory Rate 16 10/24/2023 2:30 PM CDT Oxygen Saturation 100% 11/27/2023 9:31 AM CDT Inhaled Oxygen Concentration - - Weight 91.1 kg (200 lb 12.8 oz) 11/27/2023 9:31 AM CDT Height 185.2 cm (6' 0.93) 11/27/2023 9:31 AM CD T Body Mass Index 26.54 11/27/2023 9:31 AM CDT Plan of Treatment Upcoming Encounters Date Type Department Care Team (Late st Contact Info) Description 04/17/2024 10:30 AM CDT Orders Only [facility] [address] [place] [address] Lab, [place] 04/24/2024 10:45 AM CDT Office Visit [facility] [address] [place] [address] Marva Brna, PARTY HOST [address] [place] [address] Health Maintenance Due Date Last Done Comments Zoster (shingles) series for age 50+ (1 of 2) 02/24/2016 12/30/2015, 06/26/2015 COVID-19 vaccine series (2022- season) 2023 04/15/2023, 05/16/2022, 11/24/2021, Additional history exists Tetanus booster 11/15/2023 11/14/2013, 1112/2011, 07/03/2007, Additional history exists Influenza for age 65+ 02/25/2024 05/16/2022 , 02/24/2021, 02/19/2020, Additional history exists Colonoscopy through age 75 07/23/202407/23, 07/23/2019, 07/23/2019, Additional history exists Depression screening for age 12+ 08/01/2024 08/01/2023, 08/01/2022, 02/17/2022, Additional history exists Medicare Wellness for age 65+ 08/01/2024, 08/01/2022, 07/01/2021, Additional history exists BMI (ht and wt on same day) for age 18+ 11/26/2024 11/27/2023, 09/25/2023, 08/01/2023, Additional history exists Lipids for age 45-75 06/29/2025 06/29/2020, 09/19/2018, 04/10/2018, Additional history exists Hepatitis C screening for ag e 18-79 Completed 11/14/2013 Tdap Completed 11/14/2013 Pneumococcal series for age 65+ Completed 8, 10/31/2016 AAA screening age 65-74 Completed 08/15/2022 Medical Devices Implanted Type Area Gas Plant Technician Device Identifier Shelf Expiration Date Model / Serial / Lot Jean Claude 4.0cmx5.5mm Pre-Cut - [id number] Implanted:Qty: 2 on 07/09/[address] [facility] Spine Implants Spine SOFAMOR DANEK [id number]# / / [id number] one Canclls Crushed 30cc [[id number]] Implanted:Qty: 1 on 07/09/[address] [facility] Explanted:at [facility] (Quantity not on file) Spine Allosource 04/22/2012 [id number] / [id number] / [id number] one Canclls Crushed 30cc [[id number]] Implanted:Qty: 1 on 07/09/[address] [facility] Explanted:at [facility] (Quantity not on file) Spine Allosource 04/30/2012 [id number]# / [id number] / Kit Infuse Sm - [id number] Implanted:Qty: 1 on 07/09/[address] [facility] Spine SOFAMOR DANEK [id number]# / / [id number] I Screw Tsrh Tc 7.5x45mm Std Titnm - [id number] Implanted:Qty: 4 on 07/09/[address] [facility] Spine MEDTRONIC PS MEDICAL [id number]# / / Cnnctr Tsrh Tc 5.5mm Sm Titnm - [id number] Implanted:Qty: 4 on 07/09/[address] [facility] Spine [employer] PS MEDICAL [id number]# / / Capstone 14x26 - [id number] Implanted:Qty: 1 on 07/09/[address] [facility] Spine SOFAMOR DANEK [id number]# / / [id number] Procedures Procedure Name Priority Date/Time Associated Diagnosis Comments IMMUNOFIXATION,SERUM Routine 09/25/2023 2:11 PM CDT Pruritic disorder CBC WITH AUTO DIFFERENTIAL Routine 09/25/2023 2:11 PM CDT Pruritic disorder T4,FREE Routine 09/25/2023 2:11 PM CDT Pruritic disorder PROTEIN ELP SERUM W REFLEX Routine 09/25/2023 2:11 PM CDT Pruritic disorder [facility] HOLD 22 Routine 09/25/2023 2:11 PM CDT Pruritic disorder FERRITIN Routine 09/25/2023 2:11 PM CDT Pruritic disorder CBC WITH AUTO DIFFERENTIAL Routine 09/25/2023 2:11 PM CDT Pruritic disorder US ABD AORTA SCREENING Routine 08/15/2022 10:21 AM INDEPENDENT JEWELER Screening for AAA (aortic abdominal aneurysm) LIPID PANEL W REFLEX MEASURED LDL Routine 06/29/2020 10:48 AM INDEPENDENT JEWELER Mixed hyperlipidemia COLONOSCOPY SCREENING Routine 07/23/2019 8:42 AM INDEPENDENT JEWELER Benign neoplasm of colon, unspecified part of colon ANTI HCV Routine 11/14/2013 2:42 PM CDT Need for hepatitis C screening test from Last 3 Months or Most Recently Relevant to Health Maintenance Results * (ABNORMAL) PROTEIN ELP SERUM W REFLEX (09/25/2023 2:11 PM CDT) ELP,ALBUMIN 4.14 3.31 - 5.31 g/dL 09/27/2023 1:56 PM CDT [facility] ELP,ALPHA 1 0.30 0.19 - 0.42 g/dL 09/27/2023 1:56 PM CDT [facility] ELP,ALPHA 2 0.59 0.44 - 1.03 g/dL 09/27/2023 1:56 PM CDT [facility] ELP,GAMMA 0.88 0.59 - 1.46 g/dL 09/27/2023 1:56 PM CDT [facility] ELP,BETA 0.70 0.52 - 1.05 g/dL 09/27/2023 1:56 PM CDT [facility] MONOCLONAL PEAK 1 0.09 <=0.00 g/dL 09/27/2023 1:56 PM CDT [facility] ELP INTERP,SERUM Monoclonal peak present in the slow gamma region. The finding of a monoclonal protein may be associated with a lymphoproliferative or plasma cell disorder. Consider serum free light chains, urine protein electrophoresis and urine immunofixation to further evaluate, if not already performed. ?? Interpreted and electronically signed by: Laura Irene MD 09/27/2023 1:56 PM CDT [facility] PROTEIN,TOTAL 6.6 6.0 - 8.0 g/dL 09/27/2023 1:56 PM CDT [facility] Blood BLOOD SPECIMEN / Unknown Venipuncture / Unknown 09/25/2023 2:11 PM CDT 09/25/2023 2:12 PM CDT Pawan Caceres MD CHEMISTRY [facility] [address] [place] [address], * TRYPTASE (09/25/2023 2:11 PM CDT) Tryptase 7.8 2.2 - 13.2 ug/L 09/27/2023 11:07 PM CDT [facility] Blood BLOOD SPECIMEN / Unknown Venipuncture / Unknown 09/25/2023 2:11 PM CDT 09/25/2023 2:12 PM CDT Narrative [facility] - 09/27/2023 11:07 PM CDT Performed at: ??01 - [facility] [address] [place], [place] ??[id number] Golf Teacher: Ad Roa MD, Phone: ??[phone] Pawan Caceres MD SEND OUTS [facility] [address] [place] [address], * (ABNORMAL) CBC WITH AUTO DIFFERENTIAL (09/25/2023 2:11 PM CDT) WHITE BLOOD COUNT 6.1 4.5 - 11.0 thou/cu mm 09/25/2023 2:17 PM CDT [facility] RED BLOOD COUNT 4.97 4.30 - 5.90 mil/cu mm 09/25/2023 2:17 PM CDT [facility] HEMOGLOBIN 13.9 13.5 - 17.5 g/dL 09/25/2023 2:17 PM CDT [facility] HEMATOCRIT 40.1 37.0 - 53.0 % 09/25/2023 2:17 PM CDT [facility] MCV 81 80 - 100 fL 09/25/2023 2:17 PM CDT [facility] MCH 28.0 26.0 - 34.0 pg 09/25/2023 2:17 PM CDT [facility] MCHC 34.7 32.0 - 36.0 g/dL 09/25/2023 2:17 PM CDT [facility] RDW 14.6 11.5 - 15.5 % 09/25/2023 2:17 PM CDT [facility] PLATELET COUNT 125(L) 140 - 440 thou/cu mm 09/25/2023 2:17 PM CDT [facility] MPV 9.7 6.5 - 11.0 fL 09/25/2023 2:17 PM CDT [facility] % NEUT 64.8 % 09/25/2023 2:17 PM CDT [facility] % LYMPH 22.8 % 09/25/2023 2:17 PM CDT [facility] % MONO 8.4 % 09/25/2023 2:17 PM CDT [facility] % EOS 3.5 % 09/25/2023 2:17 PM CDT [facility] % BASO 0.5 % 09/25/2023 2:17 PM CDT [facility] ABSOLUTE NEUTROPHILS 3.9 1.7 - 7.0 thou/cu mm 09/25/2023 2:17 PM CDT [facility] ABSOLUTE LYMPHOCYTES 1.4 0.9 - 2.9 thou/cu mm 09/25/2023 2:17 PM CDT [facility] ABSOLUTE MONOCYTES 0.5 <0.9 thou/cu mm 09/25/2023 2:17 PM CDT [facility] ABSOLUTE EOSINOPHILS 0.2 <0.5 thou/cu mm 09/25/2023 2:17 PM CDT [facility] ABSOLUTE BASOPHILS 0.0 <0.3 thou/cu mm 09/25/2023 2:17 PM CDT [facility] Blood BLOOD SPECIMEN / Unknown Venipuncture / Unknown 09/25/2023 2:11 PM CDT 09/25/2023 2:12 PM CDT Pawan Caceres MD HEMATOLOGY [facility] [address] [place] [address], * IMMUNOFIXATION,SERUM (09/25/2023 2:11 PM CDT) IGG 910.55 610.30 - 1,616.00 mg/dL 09/27/2023 1:56 PM CDT [facility] IGA 197.53 84.50 - 499.00 mg/dL 09/27/2023 1:56 PM CDT [facility] IGM 72.59 35.00 - 242.00 mg/dL 09/27/2023 1:56 PM CDT [facility] IFIX INTERP,SERUM Immunofixation on serum shows complete monoclonal protein IgG lambda with no free light chains detected. The finding of a monoclonal protein may be associated with a lymphoproliferative or plasma cell disorder. Consider serum free light chains, urine protein electrophoresis and urine immunofixation to further evaluate, if not already performed. ?? Interpreted and electronically signed by: Laura Irene MD 09/27/2023 1:56 PM CDT [facility] Blood BLOOD SPECIMEN / Unknown Venipuncture / Unknown 09/25/2023 2:11 PM CDT 09/25/2023 2:12 PM CDT Pawan Caceres MD CHEMISTRY Performing Organization Address [place]/[facility] Co de Phone Number [facility] [address] [place] [address], [place] * T4,FREE (09/25/2023 2:11 PM CDT) T4,FREE 1.02 0.93 - 1.70 ng/dL 09/25/2023 9:[address] [facility] Blood BLOOD SPECIMEN / Unknown Venipuncture / Unknown 09/25/2023 2:11 PM CDT 09/25/2023 2:12 PM CDT Pawan Caceres MD CHEMISTRY Performing Organization Address [facility] Co de Phone Number [facility] [address] [place] [address], [place] * FERRITIN (09/25/2023 2:11 PM CDT) FERRITIN 61.3 30.0 - 400.0 ng/mL 09/25/2023 9:[address] [facility] Blood BLOOD SPECIMEN / Unknown Venipuncture / Unknown 09/25/2023 2:11 PM CDT 09/25/2023 2:12 PM CDT Pawan Caceres MD CHEMISTRY Performing Organization Address [facility] Co de Phone Number [facility] [address] [place] [phone], [place] * US ABD AORTA SCREENING [[id number]] (08/15/2022 10:21 AM INDEPENDENT JEWELER) Anatomical Region Laterality Modality Abdomen, AORTA Ultrasound 08/15/2022 3:17 PM INDEPENDENT JEWELER Narrative 08/15/2022 3:17 PM INDEPENDENT JEWELER For Patients: ??As a result of the Cures Act, medical imaging exams and procedure reports are released immediately into your electronic medical record. ??You may view this report before your referring provider. ??If you have questions, please contact your health care provider. Examination: US abdominal aorta Indication: Abdominal aortic aneurysm screening. Technique: Rizo scale and color Doppler images of the aorta and common iliac arteries are obtained. Comparison: None Findings: Proximal aorta: 2.3 x 2.5 cm Mid aorta: 2.3 x 2.2 cm Distal aorta: 2.0 x 2.2 cm Right common iliac artery: 1.2 x 1.3 cm Left common iliac artery: 1.2 x 1.3 cm Impression: No abdominal aortic aneurysm. Dictated by Campbell Zuniga MD @ Aug 15 2022 ??3:17PM (Electronically Signed) ?? Procedure Note Campbell Zuniga MD - 08/15/2022 For Patients: As a result of the Cures Act, medical imagingexams and procedure reports are released immediately into your electronicmedical record. You may view this report before your referring provider.If you have questions, please contact your health care provider. Examination: US abdominal aorta Indication: Abdominal aortic aneurysm screening. Technique: Rizo scale and color Doppler images of the aorta and common iliac arteriesare obtained. Comparison: None Findings: Proximal aorta: 2.3 x 2.5 cm Mid aorta: 2.3 x 2.2 cm Distal aorta: 2.0 x 2.2 cm Right common iliac artery: 1.2 x 1.3 cm Left common iliac artery: 1.2 x 1.3 cm Impression: No abdominal aortic aneurysm. Dictated by Campbell Zuniga MD @ Aug 15 2022 3:17PM (Electronically Signed) Cathleen Patel DO US * (ABNORMAL) LIPID PANEL W REFLEX MEASURED LDL (06/29/2020 10:48 AM INDEPENDENT JEWELER) CHOLESTEROL,TOTAL 251(H) 100 - 199 mg/dL 06/29/2020 5:37 PM INDEPENDENT JEWELER [facility] TRIGLYCERIDES 103 <150 mg/dL 06/29/2020 5:37 PM INDEPENDENT JEWELER [facility] HDL CHOLESTEROL 59 >40 mg/dL 5:37 PM INDEPENDENT JEWELER [facility] NON-HDL CHOLESTEROL 192(H) <145 mg/dl 06/29/2020 5:37 PM INDEPENDENT JEWELER [facility] CHOL/HDL RATIO 4.25 <4.50 06/29/2020 5:37 PM INDEPENDENT JEWELER [facility] LDL CHOLESTEROL 171(H) <=130 mg/dL 06/29/2020 5:37 PM INDEPENDENT JEWELER [facility] PROVIDER ORDERED STATUS RANDOM 06/29/2020 5:37 PM INDEPENDENT JEWELER [facility] Blood BLOOD SPECIMEN / Unknown Venipuncture / Unknown 06/29/2020 10:48 AM INDEPENDENT JEWELER 06/29/2020 10:49 AM INDEPENDENT JEWELER Teto Navarro MD CHEMISTRY [facility] [address] [place] [address], * COLONOSCOPY SCREENING (07/23/2019 8:42 AM INDEPENDENT JEWELER) Teto Navarro MD GI PROCEDURE ORD * ANTI HCV [[id number]] (11/14/2013 2:42 PM CDT) HEPATITIS C ANTIBODY Non-Reacti ve Non-Reacti ve 11/14/2013 11:59 PM CDT [facility] Blood specimen (specimen) BLOOD SPECIMEN / Unknown Venipuncture / Unknown 11/14/2013 2:42 PM CDT 11/14/2013 2:42 PM CDT Narrative [facility] - 11/14/2013 11:59 PM CDT Antibodies to HCV not detected; does not exclude the possibility of exposure to HCV. Teto Navarro MD SEND OUTS [employer] [facility] [address] [place] [address], [place] from Last 3 Months or Most Recently Relevant to Health Maintenance Advance Directives * Full Code (Latest Code Status on File) Date Activated Date Inactivated Comments 06/03/2014 7:55 AM 06/03/2014 12:08 PM * Full Code Date Activated Date Inactivated Comments 05/05/2014 10:40 AM 05/05/2014 3:08 PM Care Teams Drafting Engineer Relationship Specialty Start Date End Date Cathleen Patel DO [address] [place] [address] PCP - General Family Practice 02/10/22 Raza Marks MD [address] [place] [address] Ophthalmology Ophthalmology Surgery 06/28/11 River Darby MD [address] [place] [address] Gastroenterology Gastroenterology 06/28/11 Laura Trimble MD [address] [facility] [place] [address] Medical Oncologist Hematology and Oncology 11/06/23 Marva Bran NP [address] [facility] [place] [address] Nurse Practitioner Hematology and Oncology 11/06/23
--- OUTSIDE RECORDS SUMMARY | 2023-12-07 13:40 | XMS_ITS | Clinical Summary ---
Author Organization [facility] Address [address] [place] [address] Care Team Providers Care Real Estate Services Administrator Name Role Phone Unavailable Primary Care Provider Unavailabl e Source Comments PLEASE NOTE, if this patient is a minor, it may be UNLAWFUL to discuss sensitive information that is contained in these records (such as FAMILY PLANNING, MENTAL HEALTH or SUBSTANCE ABUSE) with the minor patient's parent or other person without the patient's specific authorization.[facility] Immunizations Name Administration Dates Next Due Moderna COVID-19 Vaccine, re d cap blue label, 12+ Primary Series 09/08/2020,08/11/2020 Social History Tobacco Use Types Packs/Day Years Used Date Smoking Tobacco: Never Assessed Social Connections Answer Date Recorded Social Connections and Isolation 0 08/11/2020 Financial Resource Strain Answer Date R ecorded Financial Resource Strain 0 2020 Stress Answer Date Recorded Stress 0 08/11/2020 Physical Activity Answer Date Recorded Physical Activity 0 08/11/2020 Food Insecurity Answer Date Recorded Food 0 08/11/2020 Transportation Needs Answer Date Record ed Transportation 0 08/11/2020 Housing Stability Answer Date Recorded Housing 0 08/11/2020 Safety and Environment Answer Date Venkatesh rded Safety 0 08/11/2020 Utilities Answer Date Recorded Utilities 0 08/11/2020 Employment Answer Date Recorded Employment 0 08/11/2020 Sex and Gender Information Value Date Recorded Sex Assigned at Not on file Gender Identity Male 12/11/2020 12:41 PM PDT Sexual Orientation Straight 12/11/2020 12 :41 PM PDT Plan of Treatment Health Maintenance Due Date Last Done Comments Hepatitis C Screening 1950 Lipid Screening 1950 Tobacco Screening 1950 Hypertension Screening (#1) 1969 Imm-DTaP/Tdap/Td (1 - Tdap) 1970 CT Colonography 1996 Colonoscopy 1996 Colorectal Cancer Screening 1996 FIT/gFOBT 1996 Fecal DNA 1996 Flexible Sigmoidoscopy 1996 Imm-Zoster, Recombinant (1 of 2) 2001 Abdominal Aortic Aneurysm Screening 2016 Falls Prevention 2016 Imm-Pneumococcal 65+ (1 of 1 - PCV) 2016 Ddy-LTOIX-91 ( season) 2023 021, 08/11/2020 Alcohol and Drug Screen 06/26/2023 Depression Annual Screen 06/26/2023 Imm-Influenza (Season Ended) 2024 Insurance Payer Benefit Plan / Group Subscriber ID Effective Dates Phone Address Type COVID19 [facility] COVID19 [facility] [id number] 2020-Pres ent [address] [address] [place] [address] Other
--- OUTSIDE RECORDS SUMMARY | 2023-12-07 13:41 | XMS_ITS | Encounter Summary ---
Author Organization [facility] Address [address] [place] [address] Care Team Providers Care Sock Ironer Name Role Phone Elsewhere, Pcp Primary Care Provider Unavailabl e Encounter Details Date Type Department Care Team (Late st Contact Info) Description 10/15/2012 Historical Ophthalmology RST OPH Kenyon Lucas M.D. Social History Tobacco Use Types Packs/Day Years Used Date Smoking Tobacco: Never Assessed Sex and Gender Information Value Date Recorded Sex Assigned at Male 07/09/2018 2:54 PM PORT SURVEYOR Gender Identity Male 07/09/2018 2:54 PM PORT SURVEYOR Sexual Orientation Straight 07/09/2018 2: 54 PM PORT SURVEYOR documented as of this encounter Progress Notes * Kenyon Lucas M.D. - 10/15/2012 12:49 PM CDT Eye General CHIEF COMPLAINT Choroidal lesion, left eye HISTORY OF PRESENT ILLNESS Blurred vision; left eye; x 4 months; constantly; symptoms are severe. Denies light flashes, floaters and ocular pain. IMPRESSION / REPORT / PLAN 15 Oct 2012 US Left Eye: Tumor 3.7-3.8mm 10 PE. No extrascleral extension. Scans rechecked by SADIA. SHAHRIAR 18 Jun 2012 US left eye: tumor: 3.3mm @ 10 PE, no extrascleral extension. moderate vitreous opacities, retina attached. SADIA 16 May 2012 US left eye: tumor 3.1 - 3.2mm @ 10 PE, no extrascleral extension. LS 28 Sep 2011 US left eye: tumor 3.9 - 4.0mm @ 10 PE, no extrascleral extension. LS 27 Jan 2011 US Left Eye: Tumor 3.8-3.9mm x 8.7mm x 8.7mm @10 PE. No extrascleral extension. ZK 09/16/2010 US left eye: mushroom shaped tumor 8.0 - 8.2 x10.7 x 10.1mm @ 10 PE, medium to low reflectivity with steep attenuation slope, no extrascleral extension. 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 with 85Gy to 10mm inner sclera no biopsy -09/03; mushroom-shaped lesion (pigmented base [id number] with amelanotic apex; vascularization of apex without drusen or orange pigment; base 5mm from disc superonasally; Subretinal fluid surroundingbase; SD 360 degrees; invasion of choroidal mass into and under retina -US with [id number]-ad-yjx reflectivity and mushroom shape; extensive growth over past 6 years (2mm to 8.2mm); Subretinal fluid associated at base, no drusen or orange pigment, internal vascularity present on FA -patient seen 2004 with 2.0mm thickness nevus with overlying drusen in same location but did not follow up as scheduled per referral letter -possible extension into vitreous cavity with vitreous cell present and rupture of Bruch's membranewith mushroom configuration into subretinal space also -Obtain PET/CT, Rad Onc consult; CBC/AST/ALT/GGT/LDH/Bilirubin/Vit D; consider enucleation versus plaque therapy due to extension into subretinal space and likely through retina; discussed less chances of local success (i.e. higher chance of local recurrence) because of probable retinal invasion; -Discussed with patient need for polycarbonate glasses with side dunbar at all times for ocular protection; DOES WANT BIOPSY; REALIZES IT ADDS A 09/03; discussed that the cells in the vitreous might be melanoma cells and that surgery will not take care of the floaters; if they worsen, then remove the eye; discussed results of PET scan as well-no mets seen and LFTs wnl 02/03: s/p plaque brachytherapy 10/04. LFTs WNL. Abd US- 1.1cm cyst left hepatic lobe, no mets. OCT- RIGHT normal contour, LEFT ERM with retinal thickening (similar to 09/03) and no fluid. B-scan with significant reduction height (8- 8.2mm to 3.8-3.9mm) also basal dimension decrease in 4 months. Followup six months with Abd US, LFTs, CXR, ocular u/s, 10/05: Abd US and CXR no mets, LFTs wnl. Ocular US unchanged from 02/03 (significant reduction height(8-8.2mm to 3.8-3.9mm) from presentation 09/03). OCT spectralis left eye. Decreased VA left eye today. TIMOTHY: right eye 20/20-2 left eye 20/60-1; discussed options observation, biopsy of vitreous and ifnot melanoma then vitrectomy at home; they wish this knowing that ultimately the vision will be affected by the radiation; vitreous biopsy left eye on the ; Risks and benefits of surgery including risks of blindness, stroke, heart attack, small chance of , double vision, need for further surgery, infection, severe hemorrhage was extensively discussed with the patient. The patient understands the risks. Discussed risk, goals, advanced directive, alternatives and the necessity of other members of the surgical team participating in the interventional procedure. This was discussed with the patient (or legal medical device sales representative and others present during the discussion). The patient understands and wishes to proceed.oct today as well; 05/07: Ki index of cells in the vitreous was 0: Abd US: no mets; CXR: no mets; LFTs: WNL; Tumor reduced in thickness;borders regressed; NVI, NVA and neovascular glaucoma present.discussed extensively; options: enucleation or attempt at laser/avastin; considering tumor has regressed and angle still is open and Ki index is 0, it is reasonable to attempt to keep the eye; Continue combigan BID left eye, add trusopt BID left eye and xalatan QHS left eye, and change to atropine once daily and predforte BID. #2 Neovascular glaucoma, left eye sp avastin last injection 09/05 Avastin + anterior chamber paracentesis left eye today + PRP for Diagnosis #1 and #2 FU for IOP check in 2 weeks 06/06 plan to continue with more Avastin left eye [id number] apart with Dr. Medellin. Will do Avastin left eye today and have patient set up for 2 more at monthly intervals. Patient to see Dr Pollock for IOP check in 2 weeks. FU in 4 months with lfts and abd US, and no dilation evaluate angles then dilate and send for ocular U/S,OCT, fundus photos, -likely secondary to #1 10/06; lfts wnl; abd US wnl; pas and rubeosis present; continue avastin monthly; if there is no evidence of further growth of tumor consider cataract surgery; has two pt discrimination, entoptic phenomenon and color (blue) Recommend Avastin. Discussed risks, goals, advanced directives and alternatives. Also discussed thenecessity of other members of the team participating in this procedure. This was discussed with thepatient (or legal medical device sales representative and others present during discussion).. The patient understands and wishes to proceed. Discussed in detail lack of toxicity data, lack of approval for intraocular useand that there have been hundreds if not thousands treated since December 2004. Discussed possible systemic problems such as GI bleed, [place] and stroke. Plan to proceed with Avastin injection to the left eye. #4 Cataract, both eyes left eye substantial #5 Choroidal nevus, left eye #6 Peripheral retinoschisis, right eye -no inner/outer holes #7 prostate cancer told to check with doctor at home (Dr Bryant) -biopsy from 09/15/10 result show adenocarcinoma; PSA 6.14 07/2010 #8 Rosacea #9 Pterygium, right eye -some growth since last visit but not approaching visual axis #10 blood spots on nose ran into tree Plan 10/06 Avastin left eye today for diagnosis #1 and #2, Follow up with additional injections at home. 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 with 85Gy to 10mm inner sclera no biopsy 10-04 #2 Neovascular glaucoma, left eye sp avastin last injection 09/05 #4 Cataract, both eyes left eye substantial #5 Choroidal nevus, left eye #6 Peripheral retinoschisis, right eye #7 prostate cancer #8 Rosacea #9 Pterygium, right eye #10 blood spots on nose CDM Reports - EYEGEN Id: [id number] Status: Fnl documented in this encounter Plan of Treatment Not on file documented as of this encounter Visit Diagnoses Not on filedocumented in this encounter Additional Health Concerns Infection Onset Date Last Indicated Resolved Time COVID19 Pending 06/01/2020 06/01/2020 06/01/2020 9 :35 PM PORT SURVEYOR COVID19 Pending 09/28/2020 09/28/2020 09/28/2020 1 2:02 PM CDT COVID19 Pending 01/13/2022 01/13/2022 01/13/2022 9 :52 PM CDT Assessment Noted Time PHQ-9 Depression Total Score: 7 09/21/19 11 11:02 AM CDT documented as of this encounter Care Teams Sock Ironer Relationship Specialty Start Date End Date Elsewhere, Pcp PCP - General Internal Medicine 02/01/23 documented as of this encounter
--- OUTSIDE RECORDS SUMMARY | 2023-12-07 13:41 | XMS_ITS | Encounter Summary ---
Author Organization [facility] Address [address] [place] [address] Care Team Providers Care Parts Representative Name Role Phone Elsewhere, Pcp Primary Care Provider Unavailabl e Encounter Details Date Type Department Care Team (Late st Contact Info) Description 06/14/2013 Historical Ophthalmology RST OPH Kenyon Lucas M.D. Social History Tobacco Use Types Packs/Day Years Used Date Smoking Tobacco: Never Assessed Sex and Gender Information Value Date Recorded Sex Assigned at Male 07/09/2018 2:54 PM PRECISION DANCER Gender Identity Male 07/09/2018 2:54 PM PRECISION DANCER Sexual Orientation Straight 07/09/2018 2: 54 PM PRECISION DANCER documented as of this encounter Progress Notes * Kenyon Lucas M.D. - 06/14/2013 12:33 PM CST Eye General CHIEF COMPLAINT Left Choroidal medium sized melanoma, left eye HISTORY OF PRESENT ILLNESS 62 year old male here for follow up on Left Choroidal medium sized melanoma, left eye vision has decreased, not seeing light anymore. Patient denies ocular pain. Deniese flashes of light. Occasional floater in right eye, not new. IOPs regularly in the 30s now. On Cosopt BID, PF daily, and atropine. Sometimes he has an ache around the left eye. IMPRESSION / REPORT / PLAN 14 Jun 2013 US left eye: tumor 2.2mm @ 10 PE, no extrascleral extension. LS 30 Jan 2013 US Left Eye: Tumor 3.0 mm @10 PE, with 20 MHz probe. No extrascleral extension. ZK 15 Oct 2012 US Left Eye: Tumor 3.7-3.8mm 10 PE. No extrascleral extension. Scans rechecked by LS. ZK 18 Jun 2012 US left eye: tumor: 3.3mm @ 10 PE, no extrascleral extension. moderate vitreous opacities, retina attached. LS 16 May 2012 US left eye: tumor [...] architecture at fovea; no intra/subretinal fluid #1 Left Choroidal medium sized melanoma, T3a N0MO, s/p18mm I125 plaque with 85Gy to 10mm inner sclera no biopsy - left eye 09/03; mushroom-shaped lesion (pigmented base [id number] with amelanotic apex; vascularization of apex without drusen or orange pigment; base 5mm from disc superonasally; Subretinal fluid surroundingbase; SD 360 degrees; invasion of choroidal mass into and under retina -US with [id number]-vh-[id number] reflectivity and mushroom shape; extensive growth over [...] radiation; vitreous biopsy left eye on the 16th; Risks and benefits of surgery including risks [...] was discussed with the patient (or legal operations representative and others present during the discussion). [...] to atropine once daily and predforte BID. 02/05: CXR negative, no changes vs 05/07. Liver US: no mets, few cysts, fatty liver changes, no ductal dilation. LFTs wnl. OCT right: normal fovea, no fluid, no masses. Left eye: not done 06/07 MRI abdomen without evidence of metastases; OCT right normal foveal contour; slit lamp photosconsistent with exam; LFTs wnl #2 Neovascular glaucoma, left eye sp avastin last injection x multiple, last 01/02/13 Avastin + anterior chamber paracentesis left eye today + PRP for Diagnosis #1 and #2 FU for IOP check in 2 weeks 06/06 plan to continue with more Avastin left eye [id number] apart with Dr. Medellin. Will do Avastin [...] This was discussed with thepatient (or legal operations representative and others present during discussion).. The patient understands and wishes to proceed. Discussed in detail lack of toxicity data, lack of approval for intraocular useand that there have been hundreds if not thousands treated since December 2004. Discussed possible systemic problems such as GI bleed, [place] and stroke. Plan to proceed with Avastin injection to the left eye. 02/05; has had two more injections and the iop is 37 (had stopped cosopt for two weeks) so I think that it would be reasonable at this point to consider enucleation; 06/07 IOPs regularly in the 30s. Cosopt BID left eye only. Intermittent left eye ache. When eye becomes painful, enucleation is reasonable. #4 Cataract, both eyes left eye substantial Left eye without view #5 Choroidal nevus, left eye #6 Peripheral retinoschisis, right eye -no inner/outer holes #7 prostate cancer told to check with doctor at home (Dr Bryant) -biopsy from 09/15/10 result show adenocarcinoma; PSA 6.14 07/2010 #8 Rosacea #9 Pterygium, right eye -some growth since last visit but not approaching visual axis Plan 10/06 Avastin left eye today for diagnosis #1 and #2, Follow up with additional injections at home. Plan 02/05 RTC 4 months with MRI, lfts, ocular ults, photos and oct. Plan 06/07 RTC [address] chest and abd, LFTs, B-scan LEFT, sooner for pain OS DIAGNOSIS #1 Left Choroidal medium sized melanoma, T3a N0MO, s/p18mm I125 plaque with 85Gy to 10mm inner sclera no biopsy 10-04 left eye #2 Neovascular glaucoma, left eye sp avastin last injection x multiple, last 01/02/13 #4 Cataract, both eyes left eye substantial #5 Choroidal nevus, left eye #6 Peripheral retinoschisis, right eye #7 prostate cancer #8 Rosacea #9 Pterygium, right eye CDM Reports - EYEGEN Id: [id number] Status: Fnl documented in this encounter Plan of Treatment Not on file documented as of this encounter Visit Diagnoses Not on filedocumented in this encounter Additional Health Concerns Infection Onset Date Last Indicated Resolved Time COVID19 Pending 06/01/2020 06/01/2020 06/01/2020 9 :35 PM PRECISION DANCER COVID19 Pending 09/28/2020 09/28/2020 09/28/2020 1 2:02 PM CDT COVID19 Pending 01/13/2022 01/13/2022 01/13/2022 9 :52 PM CDT Assessment Noted Time PHQ-9 Depression Total Score: 7 09/21/19 11 11:02 AM CDT documented as of this encounter Care Teams Parts Representative Relationship Specialty Start Date End Date Elsewhere, Pcp PCP - General Internal Medicine 02/01/23 documented as of this encounter
--- OUTSIDE RECORDS SUMMARY | 2023-12-07 13:41 | XMS_ITS | Encounter Summary ---
Author Organization [facility] Address [address] [place] [address] Care Team Providers Care Bell Tier Name Role Phone Elsewhere, Pcp Primary Care Provider Unavailabl e Encounter Details Date Type Department Care Team (Late st Contact Info) Description 06/30/2014 Historical Ophthalmology RST OPH Jacobo Crawford M.D. [address] [place] [address] Social History Tobacco Use Types Packs/Day Years Used Date Smoking Tobacco: Never Assessed Sex and Gender Information Value Date Recorded Sex Assigned at Male 07/09/2018 2:54 PM QUALITY PROCESS LEAD Gender Identity Male 07/09/2018 2:54 PM QUALITY PROCESS LEAD Sexual Orientation Straight 07/09/2018 2: 54 PM QUALITY PROCESS LEAD documented as of this encounter Progress Notes * Jacobo Crawford M.D. - 06/30/2014 12:34 PM CST Eye General CHIEF COMPLAINT Enucleation HISTORY OF PRESENT ILLNESS Patient has been treated for choroidal melanoma in his LEFT eye. The eye now is NLP and uncomfortable, so he would like to proceed with enucleation, as he has discussed with Dr. Lucas in the past. IMPRESSION / REPORT / PLAN #1 Uveal melanoma, left eye. Discussed rationale for enucleation of this blind, uncomfortable eye. Reviewed concept of volume replacement with orbital implant followed by fabrication of an ocular prosthesis after the socket has healed. Risks and expectations reviewed in detail. Patient wishes to proceed; will schedule. Asked to avoid aspirin, NSAIDs, and other anticoagulants for at least 10 days preoperatively if medically safe to do so. DIAGNOSIS #1 Uveal melanoma, left eye. CDM Reports - EYEGEN Id: [id number] Status: Fnl documented in this encounter Plan of Treatment Not on file documented as of this encounter Visit Diagnoses Not on filedocumented in this encounter Additional Health Concerns Infection Onset Date Last Indicated Resolved Time COVID19 Pending 06/01/2020 06/01/2020 06/01/2020 9 :35 PM QUALITY PROCESS LEAD COVID19 Pending 09/28/2020 09/28/2020 09/28/2020 1 2:02 PM CDT COVID19 Pending 01/13/2022 01/13/2022 01/13/2022 9 :52 PM CDT Assessment Noted Time PHQ-9 Depression Total Score: 7 09/21/19 11 11:02 AM CDT documented as of this encounter Care Teams Bell Tier Relationship Specialty Start Date End Date Elsewhere, Pcp PCP - General Internal Medicine 02/01/23 documented as of this encounter
--- OUTSIDE RECORDS SUMMARY | 2023-12-07 13:41 | XMS_ITS | Encounter Summary ---
Author Organization [facility] Address [address] [place] [address] Care Team Providers Care Tank Terminal Gauger Name Role Phone Elsewhere, Pcp Primary Care Provider Unavailabl e Encounter Details Date Type Department Care Team (Late st Contact Info) Description 09/28/2011 Historical Ophthalmology RST OPH Kenyon Lucas M.D. Social History Tobacco Use Types Packs/Day Years Used Date Smoking Tobacco: Never Assessed Sex and Gender Information Value Date Recorded Sex Assigned at Male 07/09/2018 2:54 PM MARINE PROPULSION TECHNICIAN Gender Identity Male 07/09/2018 2:54 PM MARINE PROPULSION TECHNICIAN Sexual Orientation Straight 07/09/2018 2: 54 PM MARINE PROPULSION TECHNICIAN documented as of this encounter Progress Notes * Kenyon Lucas M.D. - 09/28/2011 2:25 PM CDT Eye General CHIEF COMPLAINT Choroidal lesion, left eye, blurred vision left eye HISTORY OF PRESENT ILLNESS 61 year old male here for follow up on Choroidal lesion, left eye, medium sized melanoma , Epiretinal membrane, left eye, Choroidal nevus, left eye, Blurred vision; left eye; x 1 year; constantly, floaters alone; left eye; x several months; constantly, seem to be more of them and larger in size. Denies flashes of light. Patient denies ocular pain. RWS: feels vision left eye declining since last visit. Also feels peripheral vision getting worse. No ocular pain. . IMPRESSION / REPORT / PLAN 28 Sep 2011 US left eye: tumor [...] no biopsy -09/03; mushroom-shaped lesion (pigmented base [id number] with amelanotic apex; vascularization of apex without drusen or orange pigment; base 5mm from disc superonasally; Subretinal fluid surroundingbase; SD 360 degrees; invasion of choroidal mass into and under retina -US with nglvqk-fi-mrh reflectivity and mushroom shape; extensive growth over [...] as well-no mets seen and LFTs wnl 8/11: s/p plaque brachytherapy 10/04. LFTs WNL. Abd [...] was discussed with the patient (or legal life assurance representative and others present during the discussion). The patient understands and wishes to proceed.oct today as well; #2 Epiretinal membrane, left eye -likely secondary to #1 #3 Cataract, both eyes #4 Choroidal nevus, left eye #5 Peripheral retinoschisis, right eye -no inner/outer holes #6 prostate cancer told to check with doctor at home (Dr Bryant) -biopsy from 09/15/10 result show adenocarcinoma; PSA 6.14 07/2010 #7 Rosacea #8 Pterygium, right eye -some growth since last visit but not approaching visual axis DIAGNOSIS #1 Choroidal lesion, left eye, medium sized melanoma T3a N0MO sp18mm I125 plaque with 85Gy to 10mm inner sclera no biopsy 10-04 #2 Epiretinal membrane, left eye #3 Cataract, both eyes #4 Choroidal nevus, left eye #5 Peripheral retinoschisis, right eye #6 prostate cancer #7 Rosacea #8 Pterygium, right eye CDM Reports - EYEGEN Id: [id number] Status: Fnl documented in this encounter Plan of Treatment Not on file documented as of this encounter Visit Diagnoses Not on filedocumented in this encounter Additional Health Concerns Infection Onset Date Last Indicated Resolved Time COVID19 Pending 06/01/2020 06/01/2020 06/01/2020 9 :35 PM MARINE PROPULSION TECHNICIAN COVID19 Pending 09/28/2020 09/28/2020 09/28/2020 1 2:02 PM CDT COVID19 Pending 01/13/2022 01/13/2022 01/13/2022 9 :52 PM CDT Assessment Noted Time PHQ-9 Depression Total Score: 7 09/21/19 11 11:02 AM CDT documented as of this encounter Care Teams Tank Terminal Gauger Relationship Specialty Start Date End Date Elsewhere, Pcp PCP - General Internal Medicine 02/01/23 documented as of this encounter
--- OUTSIDE RECORDS SUMMARY | 2023-12-07 13:41 | XMS_ITS | Encounter Summary ---
Author Organization [facility] Address [address] [place] [address] Care Team Providers Care Storage Consultant Name Role Phone Elsewhere, Pcp Primary Care Provider Unavailabl e Encounter Details Date Type Department Care Team (Late st Contact Info) Description 09/01/2014 Historical Ophthalmology RST OPH Kenyon Lucas M.D. Social History Tobacco Use Types Packs/Day Years Used Date Smoking Tobacco: Never Assessed Sex and Gender Information Value Date Recorded Sex Assigned at Male 07/09/2018 2:54 PM ORTHOPEDIC NURSE Gender Identity Male 07/09/2018 2:54 PM ORTHOPEDIC NURSE Sexual Orientation Straight 07/09/2018 2: 54 PM ORTHOPEDIC NURSE documented as of this encounter Progress Notes * Kenyon Lucas M.D. - 09/01/2014 10:57 AM CDT Eye General CHIEF COMPLAINT Discuss results from CT scan HISTORY OF PRESENT ILLNESS This is a 64 year old male here today for followup on Melanoma choroid. Floaters; right eye; x 6 weeks; constant. Denies flashes of light, diplopia and ocular pain. ANALIA: denies any pain left orbit s/p enucleation with Medpor implant left on 07/02/14. Reports some new floaters right eye onset 6wks ago. IMPRESSION / REPORT / PLAN 09 Jan 2014 US left eye: tumor 1.9 - 2.0mm @ 10 PE, no extrascleral extension. LS 14 Jun 2013 US left eye: tumor [...] 85Gy to 10mm inner sclera no biopsy 4-11 left eye then NVG and enucleation 07/10 09/03; mushroom-shaped lesion (pigmented base [id number] with amelanotic apex; vascularization of apex without drusen or orange pigment; base 5mm from disc superonasally; Subretinal fluid surroundingbase; SD 360 degrees; invasion of choroidal mass into and under retina -US with xyswth-ca-fbg reflectivity and mushroom shape; extensive growth over [...] radiation; vitreous biopsy left eye on the th; Risks and benefits of surgery including risks [...] was discussed with the patient (or legal auto service representative and others present during the discussion). The patient understands and wishes to proceed today as well; 05/07: Ki index of cells in the vitreous was 0: Abd US: no mets; CXR: no mets; LFTs: WNL; Tumor reduced in thickness;borders regressed; NVI, NVA and neovascular glaucoma present. discussed extensively; options: enucleation or attempt at laser/Avastin; considering tumor has regressed and angle stillis open and Ki index is 0, it is reasonable to attempt to keep the eye; Continue Combigan BID left eye, add Trusopt BID left eye and Xalatan QHS left eye, and change to atropine [...] slit lamp photosconsistent with exam; LFTs wnl 01/06: CT chest negative for metastases. Alk phos, GGT, AST, LDH, bili all normal. 09-Jan-2014 11:27:00 Exam: CT ABDOMEN w NORM Indications: Melanoma Choroid L ORIGINAL REPORT - 09-Jan-2014 12:26:00 EXAM: CT scan of the Abdomen with IV contrast COMPARISON: Abdominal MRI 06/14/2013 and hepatic ultrasound 01/30/2013. IMPRESSION: Indeterminate low attenuation hepatic lesions in the right hepatic lobe in addition to the know hepatic cysts. These lesions may represent additional smaller cysts, but are indeterminate.Ultrasound with attention the right hepatic lobe is recommended for further evaluation. FINDINGS: Focal low-attenuation lesions in the right hepatic lobe, some of which represent cysts ofwhich are indeterminate. Comparison with the previous MRI 06/14/2013 and ultrasound 01/30/2013 confirm some of these to be cystic lesions at the other the attenuation lesions were not definitely seen on the comparison exams. Additionally there is a simple cyst in the left hepatic lobe. Bilateral renal cysts. Mild fatty replacement of the pancreas. The adrenals and spleen are unremarkable. Postoperative changes lower thoracic and lumbar spine. 01/06; The mass size is stable or even decreased in thickness; discussed options; he does not wish to have enucleation he will have enucleation if he develops pain; CT shows that there are new indeterminate low attenuation hepatic lesions. -Obtain MRI abdomen. if MRI shows no suspicious lesions rtc 6-8mos with ct chest and abdomen and US 09/07: s/p enucleation with Medpor implant left on 07/02/14; wearing polycarbonate glasses. Path: no melan A cells, no residual viable neoplasm, findings c/w neovascularization and angle closure. CT chest & abdomen - mild hepatic steatosis (fatty infiltrate noted on US 01/2013), small cysts, no mets. #2 Neovascular glaucoma, left eye sp Avastin last injection x multiple, last 01/02/13 Avastin + anterior chamber paracentesis left eye today + PRP for Diagnosis #1 and #2 FU for IOP check in 2 weeks 06/06 plan to continue with more Avastin left eye [id number] apart with Dr. Medellin. Will do Avastin [...] US wnl; pas and rubeosis present; continue Avastin monthly; if there is no evidence of further growth of tumor consider cataract surgery; has two pt discrimination, entoptic phenomenon and color (blue) Recommend Avastin. Discussed risks, goals, advanced directives and alternatives. Also discussed thenecessity of other members of the team participating in this procedure. This was discussed with thepatient (or legal auto service representative and others present during discussion).. The patient understands and wishes to proceed. Discussed in detail lack of toxicity data, lack of approval for intraocular useand that there have been hundreds if not thousands treated since December 2004. Discussed possible systemic problems such as GI bleed, GA and stroke. Plan to proceed with Avastin [...] When eye becomes painful, enucleation is reasonable. 01/06; iop 39 and 40% hyphema 09/07: s/p enucleation with Medpor implant left on 07/02/14; wearing polycarbonate glasses. LFTs needed #4 Cataract, right eye #5 Peripheral retinoschisis, right eye -no inner/outer holes #6 prostate cancer told to check with doctor at home (Dr Bryant) -biopsy from 09/15/10 result show adenocarcinoma; PSA 6.14 07/2010 #7 Rosacea #8 Pterygium, right eye -some growth since last visit but not approaching visual axis #9 Posterior vitreous detachment, right eye 09/07 symptoms x6wks. No retinal breaks or tears on depressed exam. Discussed signs and symptoms of RD and the need to present urgently for re-evaluation. Plan 10/06 Avastin left eye today for diagnosis #1 and #2, Follow up with additional injections at home. Plan 02/05 RTC 4 months with MRI, lfts, ocular ults, photos and oct. Plan 06/[address] chest and abd, LFTs, B-scan LEFT, sooner for pain OS PLAN 01/06: The mass size is stable or even decreased in thickness; discussed options; he does not wish to have enucleation he will have enucleation if he develops pain; CT shows that there are new indeterminate low attenuation hepatic lesions. -Obtain MRI abdomen. if MRI shows no suspicious lesions rtc 6-8mos with ct chest and abdomen and US Plan: 09/07 getting eval'd for left prosthesis today. New PVD right eye, discussed s/sx of RT/D. GetLFTS F/u 8 mo with MRI abdomen, CRX, LFTs DIAGNOSIS #1 Left Choroidal medium sized melanoma, T3a N0MO, s/p18mm I125 plaque with 85Gy to 10mm inner sclera no biopsy - left eye then NVG and enucleation 07/10 #2 Neovascular glaucoma, left eye sp Avastin last injection x multiple, last 01/02/13 #4 Cataract, right eye #5 Peripheral retinoschisis, right eye #6 prostate cancer #7 Rosacea #8 Pterygium, right eye #9 Posterior vitreous detachment, right eye CDM Reports - EYEGEN Id: [id number] Status: Fnl documented in this encounter Plan of Treatment Not on file documented as of this encounter Visit Diagnoses Not on filedocumented in this encounter Additional Health Concerns Infection Onset Date Last Indicated Resolved Time COVID19 Pending 06/01/2020 06/01/2020 06/01/2020 9 :35 PM ORTHOPEDIC NURSE COVID19 Pending 09/28/2020 09/28/2020 09/28/2020 1 2:02 PM CDT COVID19 Pending 01/13/2022 01/13/2022 01/13/2022 9 :52 PM CDT Assessment Noted Time PHQ-9 Depression Total Score: 7 09/21/19 11 11:02 AM CDT documented as of this encounter Care Teams Storage Consultant Relationship Specialty Start Date End Date Elsewhere, Pcp PCP - General Internal Medicine 02/01/23 documented as of this encounter
--- OUTSIDE RECORDS SUMMARY | 2023-12-07 13:41 | XMS_ITS | Encounter Summary ---
Author Organization [facility] Address [address] [place] [address] Care Team Providers Care Yoker Name Role Phone Elsewhere, Pcp Primary Care Provider Unavailabl e Encounter Details Date Type Department Care Team (Late st Contact Info) Description 12/01/2011 Historical Ophthalmology RST OPH Kenyon Lucas M.D. Social History Tobacco Use Types Packs/Day Years Used Date Smoking Tobacco: Never Assessed Sex and Gender Information Value Date Recorded Sex Assigned at Male 07/09/2018 2:54 PM PRODUCTION OPERATOR Gender Identity Male 07/09/2018 2:54 PM PRODUCTION OPERATOR Sexual Orientation Straight 07/09/2018 2: 54 PM PRODUCTION OPERATOR documented as of this encounter Progress Notes * Kenyon Lucas M.D. - 12/01/2011 9:43 AM CDT Eye Postoperative MULTI-VISIT DOCUMENT This document contains multiple patient visits and is available for review in Document Viewer. CDM Reports - EYEPO Id: [id number] Status: Fnl documented in this encounter Plan of Treatment Not on file documented as of this encounter Visit Diagnoses Not on filedocumented in this encounter Additional Health Concerns Infection Onset Date Last Indicated Resolved Time COVID19 Pending 06/01/2020 06/01/2020 06/01/2020 9 :35 PM PRODUCTION OPERATOR COVID19 Pending 09/28/2020 09/28/2020 09/28/2020 1 2:02 PM CDT COVID19 Pending 01/13/2022 01/13/2022 01/13/2022 9 :52 PM CDT Assessment Noted Time PHQ-9 Depression Total Score: 7 09/21/19 11 11:02 AM CDT documented as of this encounter Care Teams Yoker Relationship Specialty Start Date End Date Elsewhere, Pcp PCP - General Internal Medicine 02/01/23 documented as of this encounter
--- OUTSIDE RECORDS SUMMARY | 2023-12-07 13:41 | XMS_ITS | Encounter Summary ---
Author Organization [facility] Address [address] [place] [address] Care Team Providers Care Office Support Assistant Name Role Phone Elsewhere, Pcp Primary Care Provider Unavailabl e Encounter Details Date Type Department Care Team (Late st Contact Info) Description 01/30/2013 Historical Ophthalmology RST OPH Kenyon Lucas M.D. Social History Tobacco Use Types Packs/Day Years Used Date Smoking Tobacco: Never Assessed Sex and Gender Information Value Date Recorded Sex Assigned at Male 07/09/2018 2:54 PM RUBBER COMPOUNDER SUPERVISOR Gender Identity Male 07/09/2018 2:54 PM RUBBER COMPOUNDER SUPERVISOR Sexual Orientation Straight 07/09/2018 2: 54 PM RUBBER COMPOUNDER SUPERVISOR documented as of this encounter Progress Notes * Kenyon Lucas M.D. - 01/30/2013 1:22 PM CDT Eye General CHIEF COMPLAINT Choroidal lesion, left eye, medium sized melanoma HISTORY OF PRESENT ILLNESS 62 year old male here for follow up on Choroidal lesion, left eye, medium sized melanoma . He has Neovascular glaucoma, left eye sp avastin last injection/2012 in [place], Cataract, both eyes left eye,Choroidal nevus, left eye, vision black in left eye, worse then last visit. Patient denies ocularpain. Floaters alone; right eye; x several years; on and off. Denies flashes of light. ANALIA - pt states that he thinks the vision left eye greatly deteriorated more ~2 months ago. Has been getting Avastin to left eye with Dr. Medellin in [place], [place], last left Avastin January 02, 2013 (4 wks).Has not used Cosopt for the past 1-2 wks. Denies any pain in the left eye. Reports floaters in right eye x2-3wks, no flashes IMPRESSION / REPORT / PLAN 30 Jan 2013 US Left Eye: Tumor [...] left eye 09/03; mushroom-shaped lesion (pigmented base [id number] with amelanotic apex; vascularization of apex without drusen or orange pigment; base 5mm from disc superonasally; Subretinal fluid surroundingbase; SD 360 degrees; invasion of choroidal mass into and under retina -US with nvxhzs-[id number]-tag reflectivity and mushroom shape; extensive growth over [...] was discussed with the patient (or legal career representative and others present during the discussion). [...] fluid, no masses. Left eye: not done #2 Neovascular glaucoma, left eye sp avastin last injection x multiple, last 01/02/13 Avastin + anterior chamber paracentesis left eye today + PRP for Diagnosis #1 and #2 FU for IOP check in 2 weeks 06/06 plan to continue with more Avastin left eye [id number] apart with Dr. Medellin. Will do Avastin [...] This was discussed with thepatient (or legal career representative and others present during discussion).. The patient understands and wishes to proceed. Discussed in detail lack of toxicity data, lack of approval for intraocular useand that there have been hundreds if not thousands treated since December 2004. Discussed possible systemic problems such as GI bleed, ID and stroke. Plan to proceed with Avastin injection to the left eye. 02/05; has had two more injections and the iop is 37 (had stopped cosopt for two weeks) so I think that it would be reasonable at this point to consider enucleation; #4 Cataract, both eyes left eye substantial [...] MRI, lfts, ocular ults, photos and oct. DIAGNOSIS #1 Left Choroidal medium sized melanoma, [...] right eye CDM Reports - EYEGEN Id: [id number] Status: Fnl documented in this encounter Plan of Treatment Not on file documented as of this encounter Visit Diagnoses Not on filedocumented in this encounter Additional Health Concerns Infection Onset Date Last Indicated Resolved Time COVID19 Pending 06/01/2020 06/01/2020 06/01/2020 9 :35 PM RUBBER COMPOUNDER SUPERVISOR COVID19 Pending 09/28/2020 09/28/2020 09/28/2020 1 2:02 PM CDT COVID19 Pending 01/13/2022 01/13/2022 01/13/2022 9 :52 PM CDT Assessment Noted Time PHQ-9 Depression Total Score: 7 09/21/19 11 11:02 AM CDT documented as of this encounter Care Teams Office Support Assistant Relationship Specialty Start Date End Date Elsewhere, Pcp PCP - General Internal Medicine 02/01/23 documented as of this encounter
--- OUTSIDE RECORDS SUMMARY | 2023-12-07 13:41 | XMS_ITS | Referral Summary ---
Author Organization [facility] Address [address] [place] [address] Care Team Providers Care Integration Specialist Name Role Phone Elsewhere, Pcp Primary Care Provider Unavailabl e Source Comments Patient records contain information from all sites at [facility]. For routine questions regarding patient records, call [phone] during business hours, M-F 8:00 AM - 5:00 PM Central Time. 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 More than 4 times per year 11/23/2021 Do you belong to any clubs o r organizations such as christianity groups, unions, fraternal or athletic groups, or [...] and heating? Not hard at all 01/23/2023 [facility] [place] of Occupat ional Health - Occupational Stress [...] your living situation today? I have a [facility] [place] place to live 01/23/2023 Education Answer Date Recorded What is the highest level of school you have completed or the highest degree you have received? Bachelor's degree (e.g., BA, AB, BS) 04/22/2020 Sex and Gender Information Value Date Recorded Sex Assigned at Male 07/09/2018 2:54 PM TAKE DOWN INSPECTOR Gender Identity Male 07/09/2018 2:54 PM TAKE DOWN INSPECTOR Sexual Orientation Straight 07/09/2018 2: 54 PM TAKE DOWN INSPECTOR Last Filed Vital Signs Vital Sign Reading [...] 02/15/2023 8:51 AM CDT Plan of Treatment Not on file Medical Devices Implanted Type Area Labor And Delivery Nurse Device Identifier Shelf Expiration Date Model / Serial / Lot Cement Bone Small - Garcia [id number] Implanted:Qty: 1 on 05/27/2011 [facility] Other [place] Description:Device Manufactu rer - [place] Marvin.. Device Status Text - [id number]. Medpor - Maritza Wedge Left Regular - Garcia [id number] Implanted:Qty: 1 on 10/29/2014 [facility] Prosthesis Other/Legacy - See Implant Description Other/Legacy - See Implant Description Description:Device Manufactu rer - [employer]. Body Location - Other. Left. Device Status Text - [facility] [id number]. Sphere Medpor Sst Ez 20mm - [id number] Implanted:Qty: 1 on 07/02/2014 Ocular (Eye) Implant Other/Legacy - See Implant Description Other/Legacy - See Implant Description Description:Device Manufactu rer - [employer]. Body Location - Other. Left. Device Status Text - [id number]. Conformer [place] Medium - Garcia [id number] Implanted:Qty: 1 on 07/02/2014 Ocular (Eye) Implant Other/Legacy - See Implant Description [employer] Description:Device Manufactu rer - [employer]. Body Location - Other. Left. Device Status Text - [id number]. Reunion-Hum Stem Press-Fit 14mm - Garcia [id number] Implanted:Qty: 1 on 05/27/2011 Shoulder Implant Other/Legacy - See Implant Description Glen Richey Description:Device Manufactu rer - Shanell Marvin.. Body Location - Other. Right. Device Status Text - [id number]. Reunion-Glenoi d S-Pressure X3 Sz48 - [id number] Implanted:Qty: 1 on 05/27/2011 Shoulder Implant Other/Legacy - See Implant Description [employer]y Description:Device Manufactu rer - Shanell Marvin.. Body Location - Other. Right. Device Status Text - [id number]. Reunion-Soo l Head Std 48 X 24 - [id number] Implanted:Qty: 1 on 05/27/2011 Shoulder Implant Other/Legacy - See Implant Description Shanell Description:Device Manufactu rer - Shanell Marvin.. Body Location - Other. Right. Device Status Text - [id number]. Conversions - Default Historical Implant Device Implanted:12/25 (Quantity not on file) Shoulder Implant Right: Shoulder Description:Body Location - Shoulder R. TSA. Device Status Text - Shoulder Joint. Hum Cup Reu 4x36 - [id number] Implanted:Qty: 1 on 02/15/2023 by Douglas Lipscomb M.D., Ph.D. at [facility] Shoulder Implant Right: Shoulder Shanell 01/30/2027 [id number] / / [id number] Hum Ins Reu X3 Rvrs 10x36 - [id number] Implanted:Qty: 1 on 02/15/2023 by Douglas Lipscomb M.D., Ph.D. at [facility] Shoulder Implant Right: Shoulder Shanell 01/25/2027 [id number] / / [id number] Melina Perform Reversed Glenoid, Press-Fit Short Post, Length: 7mm Implanted:Qty: 1 on 02/15/2023 by Douglas Lipscomb M.D., Ph.D. at [facility] Shoulder Implant Right: Shoulder [facility] 12/23/2027 [id number] / [id number] / Melina Perform Reversed Augmented Glenoid, Full-Wedge Augment Baseplate, 29mm, Angle: 15 Degree Implanted:Qty: 1 on 02/15/2023 by Douglas Lipscomb M.D., Ph.D. at [facility] Shoulder Implant Right: Shoulder [facility] 12/31/2027 [id number] / [id number] / Melina Perform Reversed Glenoid, Eccentric Glenosphere Cocr, Diameter: 36mm, Offset +2mm Implanted:Qty: 1 on 02/15/2023 by Douglas Lipscomb M.D., Ph.D. at [facility] Shoulder Implant Right: Shoulder [facility] 10/07/2027 [id number] / [id number] / Conversions - Default Historical Implant Device Implanted:12/25 (Quantity not on file) Spine Implant Spine Lumbar Description:Body Location - Lumbar. Device Status Text - Spine Implant. Explanted Type Area Labor And Delivery Nurse Device Identifier Shelf Expiration Date Model / Serial / Lot Splnt Ext Fx Dgt Pip Jn Lg - [id number] Implanted:Qty: 1 on 06/03/2020 by Mehdi Diego M.D. at [facility] Hardware e.g. pins/screws/ rods [facility] [employer] [facility] 05/26/2029 [id number] / / [id number] Procedures Procedure Name Priority Date/Time Associated Diagnosis Comments CT ABDOMEN PELVIS WITH IV CONTRAST RAD - Routine (most inpatients and all outpatients) 07/28/2023 9:48 AM TAKE DOWN INSPECTOR Melanoma Choroid Left (HCC) EXTI COMPREHENSIVE METABOLIC PANEL, S/P Routine 06/08/2023 3:55 PM TAKE DOWN INSPECTOR EXTI LIPID PANEL W REFLEX MEASURED LDL Routine 06/29/2020 10:48 AM TAKE DOWN INSPECTOR from Last 3 Months or Most Recently Relevant to Health Maintenance Results * CT Abdomen Pelvis with IV Contrast (07/28/2023 9:48 AM TAKE DOWN INSPECTOR) Anatomical Region Laterality Modality Abdomen, Pelvis, Abdominal R ST LOS, Abdominal ARZ LOS, Abdominal FLA LOS N/A Computed Tomograp hy, Computed Tomography 07/28/2023 9:25 AM TAKE DOWN INSPECTOR Impressions 07/28/2023 10:23 AM TAKE DOWN INSPECTOR 1. No evidence of metastatic disease within abdomen pelvis. 2. Stable incidental findings. Narrative 07/28/2023 10:23 AM TAKE DOWN INSPECTOR EXAM: ??CT ABDOMEN PELVIS WITH IV CONTRAST [...] be reported separately. Procedure Note Wolf Villalta M.B.B.S., M.D. - 07/28/2023 EXAM: CT ABDOMEN PELVIS WITH [...] Recently Relevant to Health Maintenance Care Teams Integration Specialist Relationship Specialty Start Date End Date Elsewhere, Pcp PCP - General Internal Medicine 02/01/23
--- OUTSIDE RECORDS SUMMARY | 2023-12-07 13:41 | XMS_ITS | Encounter Summary ---
Author Organization [facility] Address [address] [place] [address] Care Team Providers Care Claims Manager Name Role Phone Elsewhere, Pcp Primary Care Provider Unavailabl e Encounter Details Date Type Department Care Team (Late st Contact Info) Description 02/13/2017 Historical Ophthalmology RST OPH Kenyon Lucas M.D. Social History Tobacco Use Types Packs/Day Years Used Date Smoking Tobacco: Former Sex and Gender Information Value Date Recorded Sex Assigned at Male 07/09/2018 2:54 PM PROJECT ANALYST Gender Identity Male 07/09/2018 2:54 PM PROJECT ANALYST Sexual Orientation Straight 07/09/2018 2: 54 PM PROJECT ANALYST documented as of this encounter Progress Notes * Kenyon Lucas M.D. - 02/13/2017 1:36 PM CDT Eye General CHIEF COMPLAINT follow up for choroidal melanoma left eye; s/p enucleation in 2014 HISTORY OF PRESENT ILLNESS No new concerns with right eye vision; near and distance; since last visit. Notes prosthesis is comfortable most of the time, except over past month seems to more mattered. 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 Notes, he cleans it himself every 2-3 weeks. IMPRESSION / REPORT / PLAN 09 Jan [...] 85Gy to 10mm inner sclera no biopsy 4- left eye then NVG and enucleation 07/10 09/03; mushroom-shaped lesion (pigmented base 13.7g24a3oz with amelanotic apex; vascularization of apex without drusen or orange pigment; base 5mm from disc superonasally; Subretinal fluid surroundingbase; SD 360 degrees; invasion of choroidal mass into and under retina -US with exvpdk-yp-llf reflectivity and mushroom shape; extensive growth over [...] was discussed with the patient (or legal veterans employment representative and others present during the discussion). [...] on US 01/2013), small cysts, no mets. 04/09; MRI abdomen no mets; lfts wnl; cxr no metsl; 02/09; MRI abdomen; no evidence of mets but has splenomegaly and lymphadenopathy #2 Neovascular glaucoma, left eye sp Avastin last injection x multiple, last 01/02/13 Avastin + anterior chamber paracentesis left eye today + PRP for Diagnosis #1 and #2 FU for IOP check in 2 weeks 06/06 plan to continue with more Avastin left eye [id number] apart with Dr. Medellin. Will do Avastin [...] This was discussed with thepatient (or legal veterans employment representative and others present during discussion).. The patient understands and wishes to proceed. Discussed in detail lack of toxicity data, lack of approval for intraocular useand that there have been hundreds if not thousands treated since December 2004. Discussed possible systemic problems such as GI bleed, [place] and stroke. Plan to proceed with Avastin [...] on 07/02/14; wearing polycarbonate glasses. 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 GetLFTS Plan 03/2015 F/u [address] chest and abdomen, CX, LFTs plan; 02/09 get PET scan now, assuming that it is fine, rtc 1 yr with lfts, ct chest abdomen and pelvis-will send to heme and urology here DIAGNOSIS #1 Left Choroidal medium sized melanoma, T3a N0MO, s/p18mm I125 plaque with 85Gy to 10mm inner sclera no biopsy -11 left eye then NVG and enucleation 07/10 #2 Neovascular glaucoma, left eye sp Avastin last injection x multiple, last 01/02/13 #4 Cataract, right eye #5 Peripheral retinoschisis, right eye #6 prostate cancer #7 Rosacea #8 Pterygium, right eye #9 Posterior vitreous detachment, right eye CDM Reports - EYEGEN Id: [id number] Status: Fnl documented in this encounter Plan of Treatment Not on file documented as of this encounter Visit Diagnoses Not on filedocumented in this encounter Additional Health Concerns Infection Onset Date Last Indicated Resolved Time COVID19 Pending 06/01/2020 06/01/2020 06/01/2020 9 :35 PM PROJECT ANALYST COVID19 Pending 09/28/2020 09/28/2020 09/28/2020 1 2:02 PM CDT COVID19 Pending 01/13/2022 01/13/2022 01/13/2022 9 :52 PM CDT Assessment Noted Time PHQ-9 Depression Total Score: 7 09/21/19 11 11:02 AM CDT documented as of this encounter Care Teams Claims Manager Relationship Specialty Start Date End Date Elsewhere, Pcp PCP - General Internal Medicine 02/01/23 documented as of this encounter
--- OUTSIDE RECORDS SUMMARY | 2023-12-07 13:41 | XMS_ITS | Encounter Summary ---
Author Organization [facility] Address [address] [place] [address] Care Team Providers Care Saddle Stitcher Name Role Phone Elsewhere, Pcp Primary Care Provider Unavailabl e Encounter Details Date Type Department Care Team (Late st Contact Info) Description 06/18/2012 Historical Ophthalmology RST OPH Kenyon Lucas M.D. Social History Tobacco Use Types Packs/Day Years Used Date Smoking Tobacco: Never Assessed Sex and Gender Information Value Date Recorded Sex Assigned at Male 07/09/2018 2:54 PM GUITAR MAKER Gender Identity Male 07/09/2018 2:54 PM GUITAR MAKER Sexual Orientation Straight 07/09/2018 2: 54 PM GUITAR MAKER documented as of this encounter Progress Notes * Kenyon Lucas M.D. - 06/18/2012 10:44 AM CST Eye General CHIEF COMPLAINT follow up of choroidal melanoma, left eye HISTORY OF PRESENT ILLNESS This is a 61 year old male here for follow up of choroidal melanoma; Blurred vision; left eye; x several weeks; constantly. Patient states that he can only see movenment out of his left eye. Patient states that he now has intermittent double vision. Patient is not compliant with drops please see note IMPRESSION / REPORT / PLAN 18 Jun 2012 US left eye: tumor: [...] no biopsy -09/03; mushroom-shaped lesion (pigmented base 13.1w60t1ln with amelanotic apex; vascularization of apex without drusen or orange pigment; base 5mm from disc superonasally; Subretinal fluid surroundingbase; SD 360 degrees; invasion of choroidal mass into and under retina -US with yaecvc-ta-ppb reflectivity and mushroom shape; extensive growth over [...] was discussed with the patient (or legal labor union business representative and others present during the discussion). [...] predforte BID. #2 Neovascular glaucoma, left eye Avastin + anterior chamber paracentesis left eye today + PRP for Diagnosis #1 and #2 FU for IOP check in 2 weeks 06/06 plan to continue with more Avastin left eye [id number] apart with Dr. Medellin. Will do Avastin left eye today and have patient set up for 2 more at monthly intervals. Patient to see Dr Pollock for IOP check in 2 weeks. FU in 4 months with lfts and abd US, and no dilation evaluate angles then dilate and send for ocular U/S,OCT, fundus photos, -likely secondary to #1 Recommend Avastin. Discussed risks, goals, advanced directives and alternatives. Also discussed thenecessity of other members of the team participating in this procedure. This was discussed with thepatient (or legal labor union business representative and others present during discussion).. The patient understands and wishes to proceed. Discussed in detail lack of toxicity data, lack of approval for intraocular useand that there have been hundreds if not thousands treated since December 2004. Discussed possible systemic problems such as GI bleed, [place] and stroke. Plan to proceed with Avastin injection to the left eye. #4 Cataract, both eyes #5 Choroidal nevus, left eye #6 Peripheral retinoschisis, right eye -no inner/outer holes #7 prostate cancer told to check with doctor at home (Dr Bryant) -biopsy from 09/15/10 result show adenocarcinoma; PSA 6.14 07/2010 #8 Rosacea #9 Pterygium, right eye -some growth since last visit but not approaching visual axis #10 blood spots on nose ran into tree DIAGNOSIS #1 Choroidal lesion, left eye, medium sized melanoma T3a N0MO sp18mm I125 plaque with 85Gy to 10mm inner sclera no biopsy -11 #2 Neovascular glaucoma, left eye #4 Cataract, both eyes #5 Choroidal nevus, left eye #6 Peripheral retinoschisis, right eye #7 prostate cancer #8 Rosacea #9 Pterygium, right eye #10 blood spots on nose CDM Reports - EYEGEN Id: [id number] Status: Fnl documented in this encounter Plan of Treatment Not on file documented as of this encounter Visit Diagnoses Not on filedocumented in this encounter Additional Health Concerns Infection Onset Date Last Indicated Resolved Time COVID19 Pending 06/01/2020 06/01/2020 06/01/2020 9 :35 PM GUITAR MAKER COVID19 Pending 09/28/2020 09/28/2020 09/28/2020 1 2:02 PM CDT COVID19 Pending 01/13/2022 01/13/2022 01/13/2022 9 :52 PM CDT Assessment Noted Time PHQ-9 Depression Total Score: 7 09/21/19 11 11:02 AM CDT documented as of this encounter Care Teams Saddle Stitcher Relationship Specialty Start Date End Date Elsewhere, Pcp PCP - General Internal Medicine 02/01/23 documented as of this encounter
--- OUTSIDE RECORDS SUMMARY | 2023-12-07 13:41 | XMS_ITS | Encounter Summary ---
Author Organization [facility] Address [address] [place] [address] Care Team Providers Care Geoint Analyst Name Role Phone Elsewhere, Pcp Primary Care Provider Unavailabl e Encounter Details Date Type Department Care Team (Late st Contact Info) Description 05/16/2012 Historical Ophthalmology RST OPH Kenyon Lucas M.D. Social History Tobacco Use Types Packs/Day Years Used Date Smoking Tobacco: Never Assessed Sex and Gender Information Value Date Recorded Sex Assigned at Male 07/09/2018 2:54 PM SENIOR EDUCATION SPECIALIST Gender Identity Male 07/09/2018 2:54 PM SENIOR EDUCATION SPECIALIST Sexual Orientation Straight 07/09/2018 2: 54 PM SENIOR EDUCATION SPECIALIST documented as of this encounter Progress Notes * Kenyon Lucas M.D. - 05/16/2012 10:34 AM CST Eye General CHIEF COMPLAINT Follow up of choroidal melanoma HISTORY OF PRESENT ILLNESS This is a 61 year old male here for follow up of choroidal melanoma, blurred vision; left eye; x 3 weeks; constantly. Patient reports he had pain at a level of 4/10 3 weeks ago when symptoms began, no pain reported today. Floaters alone; left eye; x several years; constantly. Denies flashes of light. KK: infection left eye 2.5 weeks ago with elevated IOP, now on combigan/predforte/atropine IMPRESSION / REPORT / PLAN 16 May 2012 US left eye: tumor [...] no biopsy -09/03; mushroom-shaped lesion (pigmented base 13.4a91a2xy with amelanotic apex; vascularization of apex without drusen or orange pigment; base 5mm from disc superonasally; Subretinal fluid surroundingbase; SD 360 degrees; invasion of choroidal mass into and under retina -US with fiyzxm-nh-kjc reflectivity and mushroom shape; extensive growth over [...] was discussed with the patient (or legal civil rights representative and others present during the discussion). [...] FU for IOP check in 2 weeks FU for 3 more Avastin left eye [id number] apart with Dr. Medellin. FU in 4 months with lfts and abd US, no dilation evaluate angles then dilate and send for ocular U/S,OCT, fundus photos, -likely secondary to #1 #4 Cataract, both eyes #5 Choroidal nevus, [...] to 10mm inner sclera no biopsy - #2 Neovascular glaucoma, left eye #4 Cataract, both eyes #5 Choroidal nevus, left eye #6 Peripheral retinoschisis, right eye #7 prostate cancer #8 Rosacea #9 Pterygium, right eye #10 blood spots on nose CDM Reports - EYEGEN Id: [id number] Status: Fnl documented in this encounter Plan of Treatment Not on file documented as of this encounter Visit Diagnoses Not on filedocumented in this encounter Additional Health Concerns Infection Onset Date Last Indicated Resolved Time COVID19 Pending 06/01/2020 06/01/2020 06/01/2020 9 :35 PM SENIOR EDUCATION SPECIALIST COVID19 Pending 09/28/2020 09/28/2020 09/28/2020 1 2:02 PM CDT COVID19 Pending 01/13/2022 01/13/2022 01/13/2022 9 :52 PM CDT Assessment Noted Time PHQ-9 Depression Total Score: 7 09/21/19 11 11:02 AM CDT documented as of this encounter Care Teams Geoint Analyst Relationship Specialty Start Date End Date Elsewhere, Pcp PCP - General Internal Medicine 02/01/23 documented as of this encounter
--- OUTSIDE RECORDS SUMMARY | 2023-12-07 13:41 | XMS_ITS | Encounter Summary ---
Author Organization [facility] Address [address] [place] [address] Care Team Providers Care Feather Separator Name Role Phone Elsewhere, Pcp Primary Care Provider Unavailabl e Encounter Details Date Type Department Care Team (Late st Contact Info) Description 01/27/2011 Historical Ophthalmology RST OPH Kenyon Lucas M.D. Social History Tobacco Use Types Packs/Day Years Used Date Smoking Tobacco: Never Assessed Sex and Gender Information Value Date Recorded Sex Assigned at Male 07/09/2018 2:54 PM HOUSEKEEPING ASSOCIATE Gender Identity Male 07/09/2018 2:54 PM HOUSEKEEPING ASSOCIATE Sexual Orientation Straight 07/09/2018 2: 54 PM HOUSEKEEPING ASSOCIATE documented as of this encounter Progress Notes * Kenyon Lucas M.D. - 01/27/2011 9:00 AM CDT Eye General CHIEF COMPLAINT follow up on Choroidal lesion, left eye HISTORY OF PRESENT ILLNESS This is a 60 year old male here for follow up on Choroidal lesion, left eye, medium sized melanoma T3a N0MX, Epiretinal membrane, left eye, Choroidal nevus, left eye, peripheral retinoschisis, right eye. He has history of prostate cancer and Rosacea. On 09/27/10 he had placement of 18-mm, 21-seed iodine-125 plaque, left eye and on 10/01/10 he had removal of 18-mm, 21-seed iodine-125 plaque, left eye.Blurred vision; left eye; x 3 months; constantly; symptoms are moderate. Floaters alone; left eye; x 1 year; constantly. Denies flashes of light. No peripheral vision in left eye. Patient denies ocular pain. RWS: feels vision has improved since last visit. Feels floaters are bothersome but overall unchanged. Feels peripheral vision is decreased left eye. No ocular pain. . IMPRESSION / REPORT / PLAN 27 Jan 2011 US Left Eye: Tumor [...] no biopsy -09/03; mushroom-shaped lesion (pigmented base 13.3c89v5ug with amelanotic apex; vascularization of apex without drusen or orange pigment; base 5mm from disc superonasally; Subretinal fluid surroundingbase; SD 360 degrees; invasion of choroidal mass into and under retina -US with ghflgn-ii-ukp reflectivity and mushroom shape; extensive growth over [...] with Abd US, LFTs, CXR, ocular u/s, #2 Epiretinal membrane, left eye -likely secondary to #1 #3 Cataract, both eyes #4 Choroidal nevus, left eye #5 Peripheral retinoschisis, right eye -no inner/outer holes #6 prostate cancer told to check with doctor at home (Dr Bryant) -biopsy from 09/15/10 result show adenocarcinoma; PSA 6.14 07/2010 #7 Rosacea DIAGNOSIS #1 Choroidal lesion, left eye, medium sized melanoma T3a N0MO sp18mm I125 plaque with 85Gy to 10mm inner sclera no biopsy 10-04 #2 Epiretinal membrane, left eye #3 Cataract, both eyes #4 Choroidal nevus, left eye #5 Peripheral retinoschisis, right eye #6 prostate cancer #7 Rosacea CDM Reports - EYEGEN Id: [id number] Status: Fnl documented in this encounter Plan of Treatment Not on file documented as of this encounter Visit Diagnoses Not on filedocumented in this encounter Additional Health Concerns Infection Onset Date Last Indicated Resolved Time COVID19 Pending 06/01/2020 06/01/2020 06/01/2020 9 :35 PM HOUSEKEEPING ASSOCIATE COVID19 Pending 09/28/2020 09/28/2020 09/28/2020 1 2:02 PM CDT COVID19 Pending 01/13/2022 01/13/2022 01/13/2022 9 :52 PM CDT Assessment Noted Time PHQ-9 Depression Total Score: 7 09/21/19 11 11:02 AM CDT documented as of this encounter Care Teams Feather Separator Relationship Specialty Start Date End Date Elsewhere, Pcp PCP - General Internal Medicine 02/01/23 documented as of this encounter
--- OUTSIDE RECORDS SUMMARY | 2023-12-07 13:41 | XMS_ITS | Encounter Summary ---
Author Organization [facility] Address [address] [place] [address] Care Team Providers Care Senior Application Security Consultant Name Role Phone Elsewhere, Pcp Primary Care Provider Unavailabl e Encounter Details Date Type Department Care Team (Late st Contact Info) Description 10/27/2014 Historical Ophthalmology RST OPH Jacobo Crawford M.D. [address] [place] [address] Social History Tobacco Use Types Packs/Day Years Used Date Smoking Tobacco: Never Assessed Sex and Gender Information Value Date Recorded Sex Assigned at Male 07/09/2018 2:54 PM PRECISION STRUCTURAL METAL FITTER Gender Identity Male 07/09/2018 2:54 PM PRECISION STRUCTURAL METAL FITTER Sexual Orientation Straight 07/09/2018 2: 54 PM PRECISION STRUCTURAL METAL FITTER documented as of this encounter Progress Notes * Jacobo Crawford M.D. - 10/27/2014 11:10 AM CDT Eye General CHIEF COMPLAINT Return visit HISTORY OF PRESENT ILLNESS Mr. Bailey has decided that he would like to proceed with surgery as discussed at this last visit. Has obtained insurance approval. 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 Risks and expectations thoroughly discussed. The patient understands and wishes to proceed. Scheduled for 29 Oct 2014. Patient asked to avoid aspirin, NSAIDs, and other anticoagulants pr eoperatively if medically safe to do so. 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 CDM Reports - EYEGEN Id: [id number] Status: Fnl documented in this encounter Plan of Treatment Not on file documented as of this encounter Visit Diagnoses Not on filedocumented in this encounter Additional Health Concerns Infection Onset Date Last Indicated Resolved Time COVID19 Pending 06/01/2020 06/01/2020 06/01/2020 9 :35 PM PRECISION STRUCTURAL METAL FITTER COVID19 Pending 09/28/2020 09/28/2020 09/28/2020 1 2:02 PM CDT COVID19 Pending 01/13/2022 01/13/2022 01/13/2022 9 :52 PM CDT Assessment Noted Time PHQ-9 Depression Total Score: 7 09/21/19 11 11:02 AM CDT documented as of this encounter Care Teams Senior Application Security Consultant Relationship Specialty Start Date End Date Elsewhere, Pcp PCP - General Internal Medicine 02/01/23 documented as of this encounter
--- OUTSIDE RECORDS SUMMARY | 2023-12-07 13:41 | XMS_ITS | Encounter Summary ---
Author Organization [facility] Address [address] [place] [address] Care Team Providers Care Lead Neurodiagnostic Technologist Name Role Phone Elsewhere, Pcp Primary Care Provider Unavailabl e Encounter Details Date Type Department Care Team (Late st Contact Info) Description 02/19/2015 Historical Ophthalmology RST OPH Jacobo Crawford M.D. [address] [place] [address] Social History Tobacco Use Types Packs/Day Years Used Date Smoking Tobacco: Never Assessed Sex and Gender Information Value Date Recorded Sex Assigned at Male 07/09/2018 2:54 PM ELECTRICAL INSTALLATION SUPERVISOR Gender Identity Male 07/09/2018 2:54 PM ELECTRICAL INSTALLATION SUPERVISOR Sexual Orientation Straight 07/09/2018 2: 54 PM ELECTRICAL INSTALLATION SUPERVISOR documented as of this encounter Progress Notes * Jacobo Crawford M.D. - 02/19/2015 10:59 AM CDT Eye General CHIEF COMPLAINT Procedure left eye HISTORY OF PRESENT ILLNESS Mr. Bailey is here for a procedure to tighten the left lower eyelid, as discussed at his last visit. 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 Del Rosario. Risks and expectations thoroughly discussed. The patient understands and wishes to proceed. 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 CDM Reports - EYEGEN Id: [id number] Status: Fnl documented in this encounter Plan of Treatment Not on file documented as of this encounter Visit Diagnoses Not on filedocumented in this encounter Additional Health Concerns Infection Onset Date Last Indicated Resolved Time COVID19 Pending 06/01/2020 06/01/2020 06/01/2020 9 :35 PM ELECTRICAL INSTALLATION SUPERVISOR COVID19 Pending 09/28/2020 09/28/2020 09/28/2020 1 2:02 PM CDT COVID19 Pending 01/13/2022 01/13/2022 01/13/2022 9 :52 PM CDT Assessment Noted Time PHQ-9 Depression Total Score: 7 09/21/19 11 11:02 AM CDT documented as of this encounter Care Teams Lead Neurodiagnostic Technologist Relationship Specialty Start Date End Date Elsewhere, Pcp PCP - General Internal Medicine 02/01/23 documented as of this encounter
--- OUTSIDE RECORDS SUMMARY | 2023-12-07 13:41 | XMS_ITS | Encounter Summary ---
Author Organization [facility] Address [address] [place] [address] Care Team Providers Care Membership Director Name Role Phone Elsewhere, Pcp Primary Care Provider Unavailabl e Encounter Details Date Type Department Care Team (Late st Contact Info) Description 01/09/2014 Historical Ophthalmology RST OPH Kenyon Lucas M.D. Social History Tobacco Use Types Packs/Day Years Used Date Smoking Tobacco: Never Assessed Sex and Gender Information Value Date Recorded Sex Assigned at Male 07/09/2018 2:54 PM HVAC ENGINEERING TECHNICIAN Gender Identity Male 07/09/2018 2:54 PM HVAC ENGINEERING TECHNICIAN Sexual Orientation Straight 07/09/2018 2: 54 PM HVAC ENGINEERING TECHNICIAN documented as of this encounter Progress Notes * Kenyon Lucas M.D. - 01/09/2014 1:19 PM CDT Eye General CHIEF COMPLAINT Follow up left Choroidal medium sized melanoma HISTORY OF PRESENT ILLNESS Patient notes that vision has remained stable. Denies any flashes of light, floaters, and ocular pain. No new concerns today. STA: Denies visual changes. No ocular pain. IMPRESSION / REPORT / PLAN 09 Jan [...] No extrascleral extension. Scans rechecked by SADIA. RamosK 18 Jun 2012 US left eye: tumor: [...] left eye 09/03; mushroom-shaped lesion (pigmented base [id number] with amelanotic apex; vascularization of apex without drusen or orange pigment; base 5mm from disc superonasally; Subretinal fluid surroundingbase; SD 360 degrees; invasion of choroidal mass into and under retina -US with oyqrvd-ps-oqd reflectivity and mushroom shape; extensive growth over [...] was discussed with the patient (or legal traveling sales representative and others present during the [...] options; he does not wish to have enucleationl he will have enucleaiton if he develops pain; CT shows that there are new indeterminate low attenuation hepatic lesions. -Obtain MRI abdomen. if MRI shows no suspicious lesions rtc 6-8mos with ct chest and abdomen and US #2 Neovascular glaucoma, left eye sp avastin last injection x multiple, last 01/02/13 Avastin + anterior chamber paracentesis left eye today + PRP for Diagnosis #1 and #2 FU for IOP check in 2 weeks 06/06 plan to continue with more Avastin left eye [id number] apart with Dr. Medellin. Will do Avastin [...] This was discussed with thepatient (or legal traveling sales representative and others present during discussion).. The patient understands and wishes to proceed. Discussed in detail lack of toxicity data, lack of approval for intraocular useand that there have been hundreds if not thousands treated since December 2004. Discussed possible systemic problems such as GI bleed, [place] and stroke. Plan to proceed with Avastin [...] reasonable. 01/06; iop 39 and 40% hyphema #4 Cataract, both eyes left eye substantial [...] options; he does not wish to have enucleationl he will have enucleaiton if he develops pain; CT shows that there are new indeterminate low attenuation hepatic lesions. -Obtain MRI abdomen. if MRI shows no suspicious lesions rtc 6-8mos with ct chest and abdomen and US DIAGNOSIS #1 Left Choroidal medium sized melanoma, T3a N0MO, s/p18mm I125 plaque with 85Gy to 10mm inner sclera no biopsy 4-11 left eye #2 Neovascular glaucoma, left eye sp avastin last injection x multiple, last 01/02/13 #4 Cataract, both eyes left eye substantial #5 Choroidal nevus, left eye #6 Peripheral retinoschisis, right eye #7 prostate cancer #8 Rosacea #9 Pterygium, right eye CDM Reports - EYEGEN Id: [id number] Status: Fnl documented in this encounter Plan of Treatment Not on file documented as of this encounter Visit Diagnoses Not on filedocumented in this encounter Additional Health Concerns Infection Onset Date Last Indicated Resolved Time COVID19 Pending 06/01/2020 06/01/2020 06/01/2020 9 :35 PM HVAC ENGINEERING TECHNICIAN COVID19 Pending 09/28/2020 09/28/2020 09/28/2020 1 2:02 PM CDT COVID19 Pending 01/13/2022 01/13/2022 01/13/2022 9 :52 PM CDT Assessment Noted Time PHQ-9 Depression Total Score: 7 09/21/19 11 11:02 AM CDT documented as of this encounter Care Teams Membership Director Relationship Specialty Start Date End Date Elsewhere, Pcp PCP - General Internal Medicine 02/01/23 documented as of this encounter
--- OUTSIDE RECORDS SUMMARY | 2023-12-07 13:41 | XMS_ITS | Encounter Summary ---
Author Organization [facility] Address [address] [place] [address] Care Team Providers Care Inside Outside Sales Representative Name Role Phone Elsewhere, Pcp Primary Care Provider Unavailabl e Encounter Details Date Type Department Care Team (Late st Contact Info) Description 04/16/2015 Historical Ophthalmology RST OPH Kenyon Lucas M.D. Social History Tobacco Use Types Packs/Day Years Used Date Smoking Tobacco: Never Assessed Sex and Gender Information Value Date Recorded Sex Assigned at Male 07/09/2018 2:54 PM EPIC APPLICATION COORDINATOR Gender Identity Male 07/09/2018 2:54 PM EPIC APPLICATION COORDINATOR Sexual Orientation Straight 07/09/2018 2: 54 PM EPIC APPLICATION COORDINATOR documented as of this encounter Progress Notes * Kenyon Lucas M.D. - 04/16/2015 2:31 PM CDT Eye General CHIEF COMPLAINT follow up for Left Choroidal melanoma, HISTORY OF PRESENT ILLNESS 64 Year old male here for follow up of left choroidal medium sized melanoma. Patient reports no change in vision since last visit. Patient denies blurred vision, floaters, light flashes and ocular pain. IMPRESSION / REPORT / [...] inner sclera no biopsy 10-04 left eye then NVG and enucleation 07/10 09/03; mushroom-shaped lesion (pigmented base [id number] with amelanotic apex; vascularization of apex without drusen or orange pigment; base 5mm from disc superonasally; Subretinal fluid surroundingbase; SD 360 degrees; invasion of choroidal mass into and under retina -US with kcqsqr-pj-dqx reflectivity and mushroom shape; extensive growth over [...] was discussed with the patient (or legal customer service representative teacher and others present during the discussion). The [...] to continue with more Avastin left eye [id number] apart with Dr. Medellin. Will do Avastin [...] This was discussed with thepatient (or legal customer service representative teacher and others present during discussion).. The patient understands and wishes to proceed. Discussed in detail lack of toxicity data, lack of approval for intraocular useand that there have been hundreds if not thousands treated since December 2004. Discussed possible systemic problems such as GI bleed, [place] and stroke. Plan to proceed with Avastin [...] of mets but has splenomegaly and lymphadenopathy #4 Cataract, right eye #5 Peripheral retinoschisis, [...] yr with lfts, ct chest abdomen and pelvis DIAGNOSIS #1 Left Choroidal medium sized melanoma, [...] right eye CDM Reports - EYEGEN Id: [id number] Status: Fnl documented in this encounter Plan of Treatment Not on file documented as of this encounter Visit Diagnoses Not on filedocumented in this encounter Additional Health Concerns Infection Onset Date Last Indicated Resolved Time COVID19 Pending 06/01/2020 06/01/2020 06/01/2020 9 :35 PM EPIC APPLICATION COORDINATOR COVID19 Pending 09/28/2020 09/28/2020 09/28/2020 1 2:02 PM CDT COVID19 Pending 01/13/2022 01/13/2022 01/13/2022 9 :52 PM CDT Assessment Noted Time PHQ-9 Depression Total Score: 7 09/21/19 11 11:02 AM CDT documented as of this encounter Care Teams Inside Outside Sales Representative Relationship Specialty Start Date End Date Elsewhere, Pcp PCP - General Internal Medicine 02/01/23 documented as of this encounter
--- OUTSIDE RECORDS SUMMARY | 2023-12-07 13:41 | XMS_ITS | Encounter Summary ---
Author Organization [facility] Address [address] [place] [address] Care Team Providers Care Web User Experience Strategist Name Role Phone Elsewhere, Pcp Primary Care Provider Unavailabl e Encounter Details Date Type Department Care Team (Late st Contact Info) Description 10/28/2010 Historical Ophthalmology RST OPH Kenyon Lucas M.D. Social History Tobacco Use Types Packs/Day Years Used Date Smoking Tobacco: Never Assessed Sex and Gender Information Value Date Recorded Sex Assigned at Male 07/09/2018 2:54 PM SALES RECRUITING COORDINATOR Gender Identity Male 07/09/2018 2:54 PM SALES RECRUITING COORDINATOR Sexual Orientation Straight 07/09/2018 2: 54 PM SALES RECRUITING COORDINATOR documented as of this encounter Progress Notes * Kenyon Lucas M.D. - 10/28/2010 3:05 PM CDT Eye Postoperative MULTI-VISIT DOCUMENT This document contains multiple patient visits and is available for review in Document Viewer. CDM Reports - EYEPO Id: [id number] Status: Fnl documented in this encounter Plan of Treatment Not on file documented as of this encounter Visit Diagnoses Not on filedocumented in this encounter Additional Health Concerns Infection Onset Date Last Indicated Resolved Time COVID19 Pending 06/01/2020 06/01/2020 06/01/2020 9 :35 PM SALES RECRUITING COORDINATOR COVID19 Pending 09/28/2020 09/28/2020 09/28/2020 1 2:02 PM CDT COVID19 Pending 01/13/2022 01/13/2022 01/13/2022 9 :52 PM CDT Assessment Noted Time PHQ-9 Depression Total Score: 7 09/21/19 11 11:02 AM CDT documented as of this encounter Care Teams Web User Experience Strategist Relationship Specialty Start Date End Date Elsewhere, Pcp PCP - General Internal Medicine 02/01/23 documented as of this encounter
--- OUTSIDE RECORDS SUMMARY | 2023-12-07 13:41 | XMS_ITS | Encounter Summary ---
Author Organization [facility] Address [address] [place] [address] Care Team Providers Care Extra Gang Supervisor Name Role Phone Elsewhere, Pcp Primary Care Provider Unavailabl e Encounter Details Date Type Department Care Team (Late st Contact Info) Description 09/01/2014 Historical Ophthalmology RST OPH Jacobo Crawford M.D. [address] [place] [address] Social History Tobacco Use Types Packs/Day Years Used Date Smoking Tobacco: Never Assessed Sex and Gender Information Value Date Recorded Sex Assigned at Male 07/09/2018 2:54 PM AERIAL INSTALLER Gender Identity Male 07/09/2018 2:54 PM AERIAL INSTALLER Sexual Orientation Straight 07/09/2018 2: 54 PM AERIAL INSTALLER documented as of this encounter Progress Notes * Jacobo Crawford M.D. - 09/01/2014 8:26 AM CDT Eye Postoperative MULTI-VISIT DOCUMENT This document contains multiple patient visits and is available for review in Document Viewer. CDM Reports - EYEPO Id: [id number] Status: Fnl documented in this encounter Plan of Treatment Not on file documented as of this encounter Visit Diagnoses Not on filedocumented in this encounter Additional Health Concerns Infection Onset Date Last Indicated Resolved Time COVID19 Pending 06/01/2020 06/01/2020 06/01/2020 9 :35 PM AERIAL INSTALLER COVID19 Pending 09/28/2020 09/28/2020 09/28/2020 1 2:02 PM CDT COVID19 Pending 01/13/2022 01/13/2022 01/13/2022 9 :52 PM CDT Assessment Noted Time PHQ-9 Depression Total Score: 7 09/21/19 11 11:02 AM CDT documented as of this encounter Care Teams Extra Gang Supervisor Relationship Specialty Start Date End Date Elsewhere, Pcp PCP - General Internal Medicine 02/01/23 documented as of this encounter
--- OUTSIDE RECORDS SUMMARY | 2023-12-07 13:41 | XMS_ITS ---
Author Organization [facility] Address [address] [place] [address] Care Team Providers Care Vision Rehabilitation Therapist Name Role Phone Unavailable Unavailable Unavailable Surgery Details Not on file Complications Check Surgery Details section. Procedure Estimated Blood Loss Check Surgery Details section. Procedure Findings Check Surgery Details section. Procedure Specimens Taken Check Surgery Details section.
--- OUTSIDE RECORDS SUMMARY | 2023-12-07 13:41 | XMS_ITS | Encounter Summary ---
Author Organization [facility] Address [address] [place] [address] Care Team Providers Care Barrel Roller Name Role Phone Elsewhere, Pcp Primary Care Provider Unavailabl e Encounter Details Date Type Department Care Team (Late st Contact Info) Description 02/19/2015 Historical Ophthalmology RST OPH Raven Sher Social History Tobacco Use Types Packs/Day Years Used Date Smoking Tobacco: Never Assessed Sex and Gender Information Value Date Recorded Sex Assigned at Male 07/09/2018 2:54 PM CENTER MEDICAL DIRECTOR Gender Identity Male 07/09/2018 2:54 PM CENTER MEDICAL DIRECTOR Sexual Orientation Straight 07/09/2018 2: 54 PM CENTER MEDICAL DIRECTOR documented as of this encounter Progress Notes * Raven Sher, C.O.A. - 02/19/2015 4:37 PM CDT Eye Subsequent Visit HISTORY OF PRESENT ILLNESS Here for procedure. CDM Reports - EYESV Id: [id number] Status: Fnl documented in this encounter Plan of Treatment Not on file documented as of this encounter Visit Diagnoses Not on filedocumented in this encounter Additional Health Concerns Infection Onset Date Last Indicated Resolved Time COVID19 Pending 06/01/2020 06/01/2020 06/01/2020 9 :35 PM CENTER MEDICAL DIRECTOR COVID19 Pending 09/28/2020 09/28/2020 09/28/2020 1 2:02 PM CDT COVID19 Pending 01/13/2022 01/13/2022 01/13/2022 9 :52 PM CDT Assessment Noted Time PHQ-9 Depression Total Score: 7 09/21/19 11 11:02 AM CDT documented as of this encounter Care Teams Barrel Roller Relationship Specialty Start Date End Date Elsewhere, Pcp PCP - General Internal Medicine 02/01/23 documented as of this encounter
--- OUTSIDE RECORDS SUMMARY | 2023-12-07 13:41 | XMS_ITS ---
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 Past Plans No past plan information found. Radiation Treatments * No radiation treatments are documented for this patient in [facility]. Treatments may have been administered in another system. 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
--- OUTSIDE RECORDS SUMMARY | 2023-12-07 13:41 | XMS_ITS | Encounter Summary ---
Author Organization [facility] Address [address] [place] [address] Care Team Providers Care Business Functional Analyst Name Role Phone Elsewhere, Pcp Primary Care Provider Unavailabl e Encounter Details Date Type Department Care Team (Late st Contact Info) Description 10/02/2014 Historical Ophthalmology RST OPH Jacobo Crawford M.D. [address] [place] [address] Social History Tobacco Use Types Packs/Day Years Used Date Smoking Tobacco: Never Assessed Sex and Gender Information Value Date Recorded Sex Assigned at Male 07/09/2018 2:54 PM SPECIAL EDUCATION CASE MANAGER Gender Identity Male 07/09/2018 2:54 PM SPECIAL EDUCATION CASE MANAGER Sexual Orientation Straight 07/09/2018 2: 54 PM SPECIAL EDUCATION CASE MANAGER documented as of this encounter Progress Notes * Jacobo Crawford M.D. - 10/02/2014 8:26 AM CDT Eye General CHIEF COMPLAINT s/p enucleation, left eye HISTORY OF PRESENT ILLNESS HR: s/p enucleation for choroidal melanoma left eye. He had a prosthetic made 1 month ago by [facility]. Overall doing well but eye occasionally rotates or falls out with gentle rubbing. Right eye doing well. No vision change in right eye. GBB: Above history reviewed with patient; emendations made. 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 Thorough discussion about options. The most definitive approach would be to place a subperiosteal implant of Medpor to elevate and move anteriorly the 20-mm spherical socket implant. The lower eyelid could be tightened at the same time. If the superior sulci remain asymmetrical (i.e., deeper on the left), then a conservative blepharoplasty of the right upper eyelid could be done. Photograph taken. He will discuss with his insurance company re preauthorization and then decide if/how to proceed. 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 CDM Reports - EYEGEN Id: [id number] Status: Fnl documented in this encounter Plan of Treatment Not on file documented as of this encounter Visit Diagnoses Not on filedocumented in this encounter Additional Health Concerns Infection Onset Date Last Indicated Resolved Time COVID19 Pending 06/01/2020 06/01/2020 06/01/2020 9 :35 PM SPECIAL EDUCATION CASE MANAGER COVID19 Pending 09/28/2020 09/28/2020 09/28/2020 1 2:02 PM CDT COVID19 Pending 01/13/2022 01/13/2022 01/13/2022 9 :52 PM CDT Assessment Noted Time PHQ-9 Depression Total Score: 7 09/21/19 11 11:02 AM CDT documented as of this encounter Care Teams Business Functional Analyst Relationship Specialty Start Date End Date Elsewhere, Pcp PCP - General Internal Medicine 02/01/23 documented as of this encounter
--- OUTSIDE RECORDS SUMMARY | 2023-12-07 13:41 | XMS_ITS | Encounter Summary ---
Author Organization [facility] Address [address] [place] [address] Care Team Providers Care Asset Protection Greeter Name Role Phone Elsewhere, Pcp Primary Care Provider Unavailabl e Encounter Details Date Type Department Care Team (Late st Contact Info) Description 09/17/2010 Historical Ophthalmology RST OPH Raeann Harding, C.O.A. Social History Tobacco Use Types Packs/Day Years Used Date Smoking Tobacco: Never Assessed Sex and Gender Information Value Date Recorded Sex Assigned at Male 07/09/2018 2:54 PM FOUNDRY SUPERVISOR Gender Identity Male 07/09/2018 2:54 PM FOUNDRY SUPERVISOR Sexual Orientation Straight 07/09/2018 2: 54 PM FOUNDRY SUPERVISOR documented as of this encounter Progress Notes * Raeann Harding, C.O.A. - 09/17/2010 10:26 AM CDT Eye Subsequent Visit HISTORY OF PRESENT ILLNESS Patient returns for refraction. Trouble with distance vision in left eye, which is scheduled for brachytherapy with Dr. Lucas. He needs a pair of glasses with polycarbonate lenses. IMPRESSION / REPORT / PLAN Eye refraction performed at request of patient or physician per protocol. Discussed the nature of progressive lenses with the patient. He has never needed anything other than OTC readers until now. #1 Presbyopia DIAGNOSIS #1 Presbyopia CDM Reports - EYESV Id: [id number] Status: Fnl documented in this encounter Plan of Treatment Not on file documented as of this encounter Visit Diagnoses Not on filedocumented in this encounter Additional Health Concerns Infection Onset Date Last Indicated Resolved Time COVID19 Pending 06/01/2020 06/01/2020 06/01/2020 9 :35 PM FOUNDRY SUPERVISOR COVID19 Pending 09/28/2020 09/28/2020 09/28/2020 1 2:02 PM CDT COVID19 Pending 01/13/2022 01/13/2022 01/13/2022 9 :52 PM CDT documented as of this encounter Care Teams Asset Protection Greeter Relationship Specialty Start Date End Date Elsewhere, Pcp PCP - General Internal Medicine 02/01/23 documented as of this encounter
--- OUTSIDE RECORDS SUMMARY | 2023-12-07 13:41 | XMS_ITS | Encounter Summary ---
Author Organization [facility] Address [address] [place] [address] Care Team Providers Care Administrative Hearing Officer Name Role Phone Elsewhere, Pcp Primary Care Provider Unavailabl e Encounter Details Date Type Department Care Team (Late st Contact Info) Description 01/26/2015 Historical Ophthalmology RST OPH Jacobo Crawford M.D. [address] [place] [id number] Social History Tobacco Use Types Packs/Day Years Used Date Smoking Tobacco: Never Assessed Sex and Gender Information Value Date Recorded Sex Assigned at Male 07/09/2018 2:54 PM BIODIESEL PLANT SUPERINTENDENT Gender Identity Male 07/09/2018 2:54 PM BIODIESEL PLANT SUPERINTENDENT Sexual Orientation Straight 07/09/2018 2: 54 PM BIODIESEL PLANT SUPERINTENDENT documented as of this encounter Progress Notes * Jacobo Crawford M.D. - 01/26/2015 10:45 AM CDT Eye Postoperative MULTI-VISIT DOCUMENT This document contains multiple patient visits and is available for review in Document Viewer. CDM Reports - EYEPO Id: [id number] Status: Fnl documented in this encounter Plan of Treatment Not on file documented as of this encounter Visit Diagnoses Not on filedocumented in this encounter Additional Health Concerns Infection Onset Date Last Indicated Resolved Time COVID19 Pending 06/01/2020 06/01/2020 06/01/2020 9 :35 PM BIODIESEL PLANT SUPERINTENDENT COVID19 Pending 09/28/2020 09/28/2020 09/28/2020 1 2:02 PM CDT COVID19 Pending 01/13/2022 01/13/2022 01/13/2022 9 :52 PM CDT Assessment Noted Time PHQ-9 Depression Total Score: 7 09/21/19 11 11:02 AM CDT documented as of this encounter Care Teams Administrative Hearing Officer Relationship Specialty Start Date End Date Elsewhere, Pcp PCP - General Internal Medicine 02/01/23 documented as of this encounter
--- OUTSIDE RECORDS SUMMARY | 2023-12-07 13:41 | XMS_ITS | Encounter Summary ---
Author Organization [facility] Address [address] [place] [address] Care Team Providers Care Sterile Processing Technician Name Role Phone Elsewhere, Pcp Primary Care Provider Unavailabl e Encounter Details Date Type Department Care Team (Late st Contact Info) Description 09/16/2010 Historical Ophthalmology RST OPH Kenyon Lucas M.D. Social History Tobacco Use Types Packs/Day Years Used Date Smoking Tobacco: Never Assessed Sex and Gender Information Value Date Recorded Sex Assigned at Male 07/09/2018 2:54 PM MEDICAL DEVICE SALES CONSULTANT Gender Identity Male 07/09/2018 2:54 PM MEDICAL DEVICE SALES CONSULTANT Sexual Orientation Straight 07/09/2018 2: 54 PM MEDICAL DEVICE SALES CONSULTANT documented as of this encounter Progress Notes * Kenyon Lucas M.D. 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 Patient describes looking through a spider web that floatsaround his eye. Patient denies seeing any flashes of light. Patient denies ocular pain or diplopia.No other vision concerns at this time. RWS: Around 2-3 months ago floaters and blurry vision in left eye. One week ago foreign body sensation right eye and on dilation mass seen left eye and referred to Dr. Stein. No photopsias. No ocular pain. Had prostate biopsy done yesterday due to high PSA. IMPRESSION / REPORT / PLAN 09/16/2010 US left eye: mushroom shaped tumor [...] lesion, left eye, medium sized melanoma T3a N0MX 09/03; mushroom-shaped lesion (pigmented base [id number] with amelanotic apex; vascularization of apex without drusen or orange pigment; base 5mm from disc superonasally; Subretinal fluid surroundingbase; SD 360 degrees; invasion of choroidal mass into and under retina -US with [id number] reflectivity and mushroom shape; extensive growth over [...] DOES WANT BIOPSY; REALIZES IT ADDS A SLIGHT RISK OF LOCAL RECURRENCE, severe HEMORRHAGE, and possibility might not get enough; Risks and benefits of surgery including risks of blindness, stroke, heart attack, metastases, chance of , double vision, need for further surgery, infection, severe hemorrhage was extensively discussed with the patient. The patient understands the risks. Discussed risk, goals, advanced directive, alternatives and the necessity of other members of the surgical team participating in the interventional procedure. This was discussed with the patient (or legal metals sales representative and others present during the discussion). The patient understands and wishes to proceed. 18mm I125 plaque with 85Gy to 10mm inner sclera with BIOPSY left eye 4-4 REMOVE 4-8; 09/03; discussed that the cells in the vitreous might be melanoma cells and that surgery will not take care of the floaters; if they worsen, then remove the eye; discussed results of PET scan as well-no mets seen and LFTs wnl #2 Epiretinal membrane, left eye -likely secondary to #1 #3 Cataract, both eyes #4 Choroidal nevus, left eye #5 Peripheral retinoschisis, right eye -no inner/outer holes #6 prostate cancer told to check with doctor at home (Dr Bryant) -biopsy from 09/15/10 result show adenocarcinoma; PSA 6.14 07/2010 #7 Rosacea DIAGNOSIS #1 Choroidal lesion, left eye, medium sized melanoma T3a N0MX #2 Epiretinal membrane, left eye #3 Cataract, both eyes #4 Choroidal nevus, left eye #5 Peripheral retinoschisis, right eye #6 prostate cancer #7 Rosacea CDM Reports - EYEGEN Id: [id number] Status: Fnl documented in this encounter Plan of Treatment Not on file documented as of this encounter Visit Diagnoses Not on filedocumented in this encounter Additional Health Concerns Infection Onset Date Last Indicated Resolved Time COVID19 Pending 06/01/2020 06/01/2020 06/01/2020 9 :35 PM MEDICAL DEVICE SALES CONSULTANT COVID19 Pending 09/28/2020 09/28/2020 09/28/2020 1 2:02 PM CDT COVID19 Pending 01/13/2022 01/13/2022 01/13/2022 9 :52 PM CDT documented as of this encounter Care Teams Sterile Processing Technician Relationship Specialty Start Date End Date Elsewhere, Pcp PCP - General Internal Medicine 02/01/23 documented as of this encounter
--- NOTE | 2023-12-07 13:43 | ED_ITS ---
HPI - General Adult General Date Seen: 12/07/23 Chief complaint: Dizziness/Vertigo Stated complaint: Dizzy, nauseous, blurred vision Time Seen by Provider: 12/07/23 13:43 History of Present Illness HPI narrative: 73-year-old male with a past medical history a history of UTIs, hematuria, delirium, cervical radiculopathy, prosthetic left eye, presenting to the ER for dizziness. Symptoms began yesterday afternoon while he was doing yard work. He is feeling dizzy with the room spinning at times. Also nausea and vomiting. Last night he had chills and he has been feeling sweaty today. Related Data Home Medications ?Medication ?Instructions ?Recorded ?Confirmed buspirone 15 mg tablet 30 mg PO BID 12/15/22 12/07/23 cholecalciferol (vitamin D3) 25 1,000 unit PO DAILY 12/15/22 12/07/23 mcg (1,000 unit) tablet dextroamphetamine-amphetamine ER 30 PO PRN 12/15/22 12/15/22 30 mg 24hr capsule,extend release duloxetine 60 mg capsule,delayed 60 mg PO DAILY 12/15/22 12/07/23 release omeprazole 20 mg capsule,delayed mg PO DAILY 12/15/22 12/15/22 release tamsulosin 0.4 mg capsule 0.4 mg PO DAILY 12/15/22 12/07/23 allopurinol 100 mg tablet mg PO 12/07/23 oxybutynin chloride 10 mg 20 mg PO DAILY 12/07/23 12/07/23 tablet,extended release 24 hr Previous Rx's ?Medication ?Instructions ?Recorded meclizine 25 mg tablet 25 mg PO TID PRN dizziness #15 tabs 12/07/23 ondansetron 4 mg disintegrating 4 mg PO Q8H PRN nausea and 12/07/23 tablet vomiting #10 tabs Allergies Allergy/AdvReac Type Severity Reaction Status Date / Time No Known Drug Allergies Allergy Verified 12/20/22 09:[address] [facility] Medical History (Updated 12/07/23 @ 17:39 by Raza Cano MD) Anxiety ?F41.9 - Anxiety disorder, unspecified (ICD-10) Depression ?F32.A - Depression, unspecified (ICD-10) Sleep apnea ?G47.30 - Sleep apnea, unspecified (ICD-10) Surgical History (Updated 12/20/22 @ 14:21 by Nelson Kessler MD) H/O shoulder surgery ?Z98.890 - Other specified postprocedural states (ICD-10) Previous back surgery ?Z98.890 - Other specified postprocedural states (ICD-10) History of eye prosthesis ?Z97.0 - Presence of artificial eye (ICD-10) History of appendectomy ?Z90.49 - Acquired absence of other specified parts of digestive tract (ICD- 10) Social History Smoking Status: Never smoker Do you use any of these nicotine containing products: None Second hand tobacco smoke exposure: No How often do you have a drink containing alcohol: never How often do you have six or more drinks on one occasion: Never AUDIT-C Alcohol total score: 0 Non-prescribed substance use: denies use service: No Exam Narrative: Exam Narrative: Constitutional: Appears well-developed and well-nourished. Alert. Conversant. Non toxic. HENT: Head: Atraumatic. Nose: Nose normal. Mouth/Throat: Oral mucosa is clear and moist. no trismus. Pharynx normal. Tonsils symmetric. No tonsillar enlargement, erythema, or exudate. Eyes: Conjunctivae normal. EOM normal. Pupil is round and reactive to light. He does have some horizontal nystagmus with EOM movement. No vertical nystagmus. Left eye is surgically absent. Neck: Normal range of motion. Neck supple. No tracheal deviation present. Cardiovascular: Normal rate, regular rhythm. No gallop. No friction rub. No murmur heard. Symmetric radial artery pulses Pulmonary/Chest: Effort normal. No stridor. No respiratory distress. No wheezes. No rales. No rhonchi . No tenderness. Abdominal: Soft.No distension. No mass. No tenderness. No rebound. No guarding. Musculoskeletal: RUE: Normal range of motion. No tenderness. No deformity LUE: Normal range of motion. No tenderness. No deformity RLE: Normal range of motion. No edema. No tenderness. No deformity LLE: Normal range of motion. No edema. No tenderness. No deformity Neurological: Mental status normal. Attention normal. Alert and oriented x3. GCS 15. Memory normal. Speech fluent. Cognition normal. Cranial Nerves intact II-XII except I did not formally test gag or visual acuity. EOMI. Palate elevates symmetrically and tongue protrudes in the midline. Strength: 5/5 trapezius on the right and left 5/5 deltoid on the right and left 5/5 biceps on the right and left 5/5 triceps on the right and left 5/5 coffee shop aide on the right and left 5/5 thumb opposition on the right and le ft 5/5 finger abduction on the right and le ft 5/5 hip flexors (L3) on the right and le ft 5/5 quadriceps (L4) on the right and lef t 5/5 tibialis anterior on the right and l eft 5/5 EHL (L5) on the right and left 5/5 gastrocnemius (S1) on the right and left 5/5 hamstring on the right and left Sensation intact to light touch in both upper extremities (C4-T1) Sensation intact to light touch in Both lower extremities (L4-S1). Finger to nose and coordination normal. Gait initially not assessed because of nausea and dizziness. After meds gait is steady and normal in the hallway. Skin: Skin is warm and dry. No rash noted. No pallor. Normal capillary refill. Psychiatric: Normal mood. Normal affect. Very polite Const: Vital Signs, click to edit/add: Vital Signs - 24 hr 12/07/23 13:38 Temperature 97.2 F L Pulse Rate [Pulse Oximeter] 57 L Respiratory Rate 18 Blood Pressure [Ri ght Upper Arm] 151/85 H Pulse Oximetry 99 Oxygen Delivery Me thod Room Air Course Course ED Course: Recheck-still somewhat nauseous after 1st dose of Zofran. Vertigo getting better after meclizine. Reevaluation(s) Reevaluation #1: Recheck-feeling much better after 2nd dose of Zofran. Vertigo getting better. He has passed a p.o. challenge ( brought him a cheeseburger for dinner). He is ambulatory in the hallway to go to the bathroom make urine. Gait is steady. No ataxia. He is feeling much better. Vital Signs Vital signs: Initial Vital Signs Temperature 97.2 F L 12/07/23 13:38 Temperature Source Temporal Artery Scan 12/07/23 13:38 Pulse Rate 57 L 12/07/23 13:38 Respiratory Rate 18 12/07/23 13:38 Blood Pressure 151/85 H 12/07/23 13:38 Blood Pressure Mean 107 H 12/07/23 13:38 Blood Pressure Position Supine 12/07/23 13:38 Pulse Oximetry 99 12/07/23 13:38 Oxygen Delivery Method Room Air 12/07/23 13:38 Vital Signs Temperature 97.2 F L 12/07/23 13:38 Pulse Rate 57 L 12/07/23 13:38 Respiratory Rate 18 12/07/23 13:38 Blood Pressure 151/85 H 12/07/23 13:38 Pulse Oximetry 99 12/07/23 13:38 Oxygen Delivery Method Room Air 12/07/23 13:38 Temperature 97.2 F L 12/07/23 13:38 Pulse Rate 57 L 12/07/23 13:38 Respiratory Rate 18 12/07/23 13:38 Blood Pressure 151/85 H 12/07/23 13:38 Pulse Oximetry 99 12/07/23 13:38 Oxygen Delivery Method Room Air 12/07/23 13:38 Medications Administered Medications: Discontinued Medications Generic Name Dose Route Start Last Admin Trade Name Freq PRN Reason Stop Dose Admin Sodium Chloride 1,000 mls @ 1,000 mls/hr 12/07/23 15:00 12/07/23 15:16 0.9 % Sodium Chloride 1000 Ml IV 12/07/23 15:59 1,000 mls/hr .Q1H YONIS Administration Meclizine HCl 25 mg 12/07/23 14:59 12/07/23 15:16 Meclizine Hcl 25 Mg Tablet PO 12/07/23 15:00 25 mg ONCE ONE Administration Ondansetron HCl 4 mg 12/07/23 14:59 12/07/23 15:16 Ondansetron 2 Mg/Ml Inj IVP 12/07/23 15:00 4 mg ONCE ONE Administration Ondansetron HCl 4 mg 12/07/23 16:02 12/07/23 16:07 Ondansetron 2 Mg/Ml Inj IVP 12/07/23 16:03 4 mg ONCE ONE Administration Medical Decision Making MDM Narrative Medical decision making narrative: This patient presents for evaluation of dizziness c/w vertigo. The differential diagnosis of vertigo is broad and includes common etiologies such as menieres disease, labyrinthitis, benign positional vertigo, otitis media, etc. More serious etiologies considered include central etiologies such as tumor, intracerebral bleed, dissection, ischemic cerebral vascular accident. The history, physical exam including detailed neurologic exam, and workup in the emergency room suggests a benign cause of vertigo today. Patient feels improved after interventions noted above. Further outpatient management is indicated with vertigo medications. Clinical exam is reassuring. He is feeling tremendously improved after Zofran and meclizine. No indication for advanced imaging at this point (CT/MRI) as there are no definite signs of a central and concerning etiology for the vertigo. Consider other causes of dizziness and lightheadedness. workup shows no evidence for anemia, AK, cardiac arrhythmia. He had some chills last night which he thinks are probably related to the nausea and vomiting. No fever here in the ER. No leukocytosis to suggest a clear bacterial infection. No headache or neck stiffness to suggest meningitis. No recent head trauma. He is not anticoagulated. Vertigo precautions given for home. Lab Data Labs: Lab Results 12/07/23 Range/Units 15:08 WBC 5.29 (4.50-11.00) K/uL RBC 4.60 (4.30-5.90) m/uL Hgb 12.2 L (13.5-17.5) gm/dL Hct 37.4 (37.0-53.0) % MCV 81 (80-100) fL MCH 27 (26-34) pg MCHC 33 (32-36) gm/dL RDW Coeff of Ruth 13.2 (11.5-15.5) % Plt Count 126 L (140-440) K/uL Neut % (Auto) 64.8 (42.0-72.0) % Lymph % (Auto) 23.8 (20-44) % [place] % (Auto) 9.5 (0.0-11.0) % Eos % (Auto) 1.5 (0.0-7.0) % Baso % (Auto) 0.2 (0.0-3.0) % Neut # (Auto) 3.43 (1.7-7.0) K/uL Lymph # (Auto) 1.26 (0.90-2.90) K/uL [place] # (Auto) 0.50 (0.00-0.90) K/UL Eos # (Auto) 0.08 (0.00-0.50) K/uL Baso # (Auto) 0.01 (0.00-0.30) K/uL Abs Immat Gran (auto) 0.01 (0.00-0.30) K/uL Imm/Tot Granulo (auto) 0.2 % Sodium 140 (135-149) mmol/L Potassium 3.7 (3.6-5.1) mmol/L Chloride 108 (96-114) mmol/L Carbon Dioxide 26 (20-32) mmol/L Anion Gap 6 L (7-15) mEq/L BUN 25 (7-30) mg/dL Creatinine 0.8 (0.5-1.5) mg/dL Estimated Creat Clear 77.63 Estimated GFR 94 ml/min Glucose 92 (60-115) mg/dL Lactate 1.4 (0.5-1.9) mmol/L Calcium 8.9 (8.4-10.6) mg/dL Troponin I < 0.01 L (0.01-0.04) ng/mL ECG Data Attestation: I personally reviewed and interpreted this ECG as follows: Interpretation: Sinus bradycardia Rate: 51 MO: 190 QRS axis: Normal axis. No pathologic Q-waves. ST segment/T wave: No ST segment elevation or depression. QTc: 405 Discharge Plan Discharge Clinical Impression: Vertigo Patient Disposition: Home, Self-Care Condition: Stable Instructions: Vertigo (DC) Additional Instructions: As we discussed, you can use Zofran or meclizine as needed to help treat symptoms of nausea or dizziness. If you are not having symptoms you do not have to take the medications. Please follow-up with your regular doctor for recheck if you are not completely improved within the next 2-3 days. Or come back to the ER right away if you have any worsening symptoms such as worsening dizziness or vertigo, headache, new visual problems, slurred speech, numbness or weakness in your arms or legs, or if you have any problems. Prescriptions: New meclizine 25 mg tablet 25 mg PO TID PRN (Reason: dizziness) Qty: 15 0RF ondansetron 4 mg tablet,disintegrating 4 mg PO Q8H PRN (Reason: nausea and vomiting) Qty: 10 0RF No Action cholecalciferol (vitamin D3) 25 mcg (1,000 unit) tablet 1,000 unit PO DAILY duloxetine 60 mg capsule,delayed release(DR/EC) 60 mg PO DAILY buspirone 15 mg tablet 30 mg PO BID dextroamphetamine-amphetamine 30 mg capsule,extended release 24hr 30 PO PRN omeprazole 20 mg capsule,delayed release(DR/EC) PO DAILY tamsulosin 0.4 mg capsule 0.4 mg PO DAILY oxybutynin chloride 10 mg tablet extended release 24hr 20 mg PO DAILY allopurinol 100 mg tablet PO Follow Up/Referrals: RAJESH NUNEZ DO [Primary Care Provider] - [facility]one [facility]: [facility] Inst[facility]
[2023-12-07] MEDS: ONDANSETRON 2 MG/ML inj 4 MG IVP ×2 (15:16→16:07)
[2023-12-07] MEDS: MECLIZINE HCL 25 MG TABLET PO (15:16)
[2023-12-07] MEDS: 0.9 % SODIUM CHLORIDE 1000 ml 1,000 ML IV (15:16)
[2023-12-07 15:19] LABS: Lactate* 1.4 mmol/L (0.5-1.9)
[2023-12-07 15:24] LABS: Sodium* 140 mmol/L (135-149)
[2023-12-07 15:25] LABS: Basophils Absolute Auto 0.01 K/uL (0.00-0.30); Basophils Percent Auto 0.2 % (0.0-3.0); Eosinophils Absolute Auto 0.08 K/uL (0.00-0.50); Eosinophils Percent Auto 1.5 % (0.0-7.0); Hematocrit 37.4 % (37.0-53.0); Hemoglobin* 12.2 gm/dL (13.5-17.5); Immature Granulocytes Abs Auto 0.01 K/uL (0.00-0.30); Immature Granulocytes Pct Auto 0.2 %; Lymphocytes Absolute Auto 1.26 K/uL (0.90-2.90); Lymphocytes Percent Auto 23.8 % (20-44); Mean Corpuscular HGB Conc 33 gm/dL (32-36); Mean Corpuscular Hemoglobin 27 pg (26-34); Mean Corpuscular Volume 81 fL (80-100); Monocytes Percent Auto 9.5 % (0.0-11.0); Neutrophils Absolute Auto 3.43 K/uL (1.7-7.0); Neutrophils Percent Auto 64.8 % (42.0-72.0); Platelet Count* 126 K/uL (140-440); RDW Coefficient of Variation % 13.2 % (11.5-15.5); White Blood Count* 5.29 K/uL (4.50-11.00)
[2023-12-07 15:41] LABS: Chloride* 108 mmol/L (96-114); Potassium* 3.7 mmol/L (3.6-5.1)
[2023-12-07 15:44] LABS: Anion Gap 6 mEq/L (7-15); Blood Urea Nitrogen* 25 mg/dL (7-30); Carbon Dioxide* 26 mmol/L (20-32); Creatinine* 0.8 mg/dL (0.5-1.5); Est. Creatinine Clearance* 77.63; Estimated Glomerular Filt Rate 94 ml/min; Glucose* 92 mg/dL (60-115)
[2023-12-07 15:45] LABS: Calcium* 8.9 mg/dL (8.4-10.6)
--- OUTSIDE RECORDS SUMMARY | 2023-12-07 15:46 | XMS_ITS | Clinical Summary ---
Author Organization [facility] Address [address] [place] [address] Care Team Providers Care Membership Director Name Role Phone Unavailable Primary Care Provider [...] 65+ (1 of 1 - PCV) 2016 [id number] ( season) 2023 021, 08/11/2020 Alcohol and Drug Screen 06/26/2023 Depression Annual Screen 06/26/2023 Imm-Influenza (Season Ended) 2024 Insurance Payer Benefit Plan / Group Subscriber ID Effective Dates Phone Address Type COVID19 [facility] [employer] COVID19 [facility] [employer] [id number] 2020-Pres ent [address] [address] [place] [address] Other
--- OUTSIDE RECORDS SUMMARY | 2023-12-07 15:47 | XMS_ITS ---
Author Organization [facility] Address [address] [place] [address] Care Team Providers Care Band Sawmill Operator Name Role Phone Elsewhere, Pcp Primary Care [...] Overview: Added automatically from request for surgery [id number] Anophthalmos Acquired 07/09/2018 Melanoma Choroid Left 06/30/2014 [...] treatments are documented for this patient in [facility]. 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
--- OUTSIDE RECORDS SUMMARY | 2023-12-07 15:47 | XMS_ITS | Encounter Summary ---
Author Organization [facility] Address [address] [place] [address] Care Team Providers Care Drawing Hand Name Role Phone Elsewhere, Pcp Primary Care Provider Unavailabl e Encounter Details Date Type Department Care Team (Late st Contact Info) Description 01/26/2015 Historical Ophthalmology RST OPH Jacobo Crawford M.D. [address] [place] [id number] Social History Tobacco Use Types Packs/Day Years Used Date Smoking Tobacco: Never Assessed Sex and Gender Information Value Date Recorded Sex Assigned at Male 07/09/2018 2:54 PM [employer] Gender Identity Male 07/09/2018 2:54 PM [employer] Sexual Orientation Straight 07/09/2018 2: 54 PM [employer] documented as of this encounter Progress Notes * Jacobo Crawford M.D. - 01/26/2015 10:45 AM CDT Eye Postoperative MULTI-VISIT DOCUMENT This document contains multiple patient visits and is available for review in Document Viewer. CDM Reports - EYEPO Id: [id number] Status: Fnl documented in this encounter Plan of Treatment Not on file documented as of this encounter Visit Diagnoses Not on filedocumented in this encounter Additional Health Concerns Infection Onset Date Last Indicated Resolved Time COVID19 Pending 06/01/2020 06/01/2020 06/01/2020 9 :35 PM [employer] COVID19 Pending 09/28/2020 09/28/2020 09/28/2020 1 2:02 PM CDT COVID19 Pending 01/13/2022 01/13/2022 01/13/2022 9 :52 PM CDT Assessment Noted Time PHQ-9 Depression Total Score: 7 09/21/19 11 11:02 AM CDT documented as of this encounter Care Teams Drawing Hand Relationship Specialty Start Date End Date Elsewhere, Pcp PCP - General Internal Medicine 02/01/23 documented as of this encounter
--- OUTSIDE RECORDS SUMMARY | 2023-12-07 15:47 | XMS_ITS | Encounter Summary ---
Author Organization [facility] Address [address] [place] [address] Care Team Providers Care Full Roll Inspector Name Role Phone Elsewhere, Pcp Primary Care Provider Unavailabl e Encounter Details Date Type Department Care Team (Late st Contact Info) Description 06/14/2013 Historical Ophthalmology RST OPH Kenyon Lucas M.D. Social History Tobacco Use Types Packs/Day Years Used Date Smoking Tobacco: Never Assessed Sex and Gender Information Value Date Recorded Sex Assigned at Male 07/09/2018 2:54 PM PROJECTOR BOOTH OPERATOR Gender Identity Male 07/09/2018 2:54 PM PROJECTOR BOOTH OPERATOR Sexual Orientation Straight 07/09/2018 2: 54 PM PROJECTOR BOOTH OPERATOR documented as of this encounter Progress [...] left eye 09/03; mushroom-shaped lesion (pigmented base 13.5z41f9rm with amelanotic apex; vascularization of apex without drusen or orange pigment; base 5mm from disc superonasally; Subretinal fluid surroundingbase; SD 360 degrees; invasion of choroidal mass into and under retina -US with luboes-hh-blq reflectivity and mushroom shape; extensive growth over [...] was discussed with the patient (or legal inside sales representative and others present during the [...] to continue with more Avastin left eye X8pcoea apart with Dr. Medellin. Will do Avastin [...] This was discussed with thepatient (or legal inside sales representative and others present during discussion).. The patient understands and wishes to proceed. Discussed in detail lack of toxicity data, lack of approval for intraocular useand that there have been hundreds if not thousands treated since December 2004. Discussed possible systemic problems such as GI bleed, [place] and stroke. Plan to proceed with Avastin [...] right eye CDM Reports - EYEGEN Id: [id number] Status: Fnl documented in this encounter Plan of Treatment Not on file documented as of this encounter Visit Diagnoses Not on filedocumented in this encounter Additional Health Concerns Infection Onset Date Last Indicated Resolved Time COVID19 Pending 06/01/2020 06/01/2020 06/01/2020 9 :35 PM PROJECTOR BOOTH OPERATOR COVID19 Pending 09/28/2020 09/28/2020 09/28/2020 1 2:02 PM CDT COVID19 Pending 01/13/2022 01/13/2022 01/13/2022 9 :52 PM CDT Assessment Noted Time PHQ-9 Depression Total Score: 7 09/21/19 11 11:02 AM CDT documented as of this encounter Care Teams Full Roll Inspector Relationship Specialty Start Date End Date Elsewhere, Pcp PCP - General Internal Medicine 02/01/23 documented as of this encounter
--- OUTSIDE RECORDS SUMMARY | 2023-12-07 15:47 | XMS_ITS | Continuity of Care Document ---
Author Organization [facility] Address [address] [place] [address] Phone Care Team Providers Care Net Lead Architect Name Role Phone Christiano KILPATRICK, Lake Unavailable [...] Flag Status Comments Panel Description: Transfora kenny Acxorlh-Ceyajl-Qcrutxnlfgyvgf (TRANSLUMNONPART) Unknown TRANSLUMNONPART 21 17:25:19 (See Attached Document) Unknown (See Attached Document) Panel Description: Transfora kenny Ndvkgqx-Mgvmgt-Qsokrwvjvwtfqp (TRANSLUMNONPART) Unknown Image Transforaminal Rturhjk-Fzpfei-N onparti Advance Directives Directive Yes / No Effective Date File Name No Information Encounters Encounter Description Practice Location Reason(s) For Visit Diagnoses Date Provider Providers Copied on Encounter Office/Outpat ient Visit,New, Mod Charly/[facility], [address], [place], [place], [id number], [place] tel:[phone] [facility] No Information 1 Christiano Bethea. [facility] [place], [address] [place] [address], [address], [place], [place], [id number] , [place]. tel:[phone] Referring Provider: [place] N[place], [facility] [address], [address], [place], [address] . tel:[phone] Office/outpat ient visit,est, low Z [facility] [place], [address] [place], [place] [address], [place], [address], [place] tel:[phone] [facility] No Information 8200 9 Christiano Bethea. [facility] [place], [address] [place] [address], [address], [place], [place], [id number] , [place]. tel:[phone] Referring Provider: Matthew Vergara, [facility] [address] [facility], [place], [address]. tel:[phone] Z [facility], [address] [place], [place] [address]ite [address] [place] [address], [address], [place] tel:[phone] [facility] No Information 3-200 8 [place]. [facility] [place], [address] [place] [address], [address], [place], [id number] , [place]. tel:[phone] Referring Provider: Matthew Vergara, [address], [place], [address]. tel:[phone] Z [facility] [place], [address], [facility], [place] tel:[phone] [employer] No Information 9-200 8 [place]. [facility] [place], [address] [place] [address] [place] [address], [id number] , [place]. tel:[phone] Referring Provider: Matthew Vergara, [address], [place], [address]. tel:[phone] Z [facility] [place], [address], [address], [place] tel:[phone] [facility] No Information 6-200 8 [place]. [facility] [place], [address] [place] [address], [address], [place], [id number] , [place]. tel:[phone] Referring Provider: Matthew Vergara [facility] [address] [facility], [place], [address]. tel:[phone] Office/outpat ient visit,est, mod Z [facility], [address] [place], [place] [address]ite [address] [place] [address], [address], [place] tel:[phone] [email or web address] No Information 8-200 8 [place]. [facility] [place], [address] [place] [address], [address], [place], [id number] , . tel:[phone] Referring Provider: Matthew [facility], [facility] [address], [place], [address]. tel:[phone] Office/outpat ient visit,new, mod Z [facility], [address] [facility] [address] [address], [place], [address], [place] tel:[phone] [facility] No Information 6200 7 Christiano Bethea. [facility], [address] [place] [address], [address], [place], [place], [id number] , [place]. tel:[phone] Referring Provider: Matthew Vergara, [facility] [address], [place], [address]. tel:[phone] Family History Family Member Type Diagnosis Age At Onset No Information Payers Payer name Insurance type Covered libertarian ID Jj mcgregor(s) Medicare MB [id number] [employer] [id number] Social History Type Description Quantity Date Captured [...]
--- OUTSIDE RECORDS SUMMARY | 2023-12-07 15:47 | XMS_ITS | Clinical Summary ---
Author Organization [facility] Address [address] [place] [address] Care Team Providers Care Medical Claims Processor Name Role Phone Elsewhere, Pcp Primary Care Provider Unavailabl e Source Comments Patient records contain information from all sites at [facility]. For routine questions regarding patient records, call [phone] during business hours, M-F 8:00 AM - 5:00 PM Central Time. 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 More than 4 times per year 11/23/2021 Do you belong to any clubs o r organizations such as scientology groups, unions, fraternal or athletic groups, or [...] and heating? Not hard at all 01/23/2023 [facility] [place] of Occupat ional Health - Occupational Stress [...] your living situation today? [facility] 01/23/2023 Education Answer Date Recorded What is the highest level of school you have completed or the highest degree you have received? Bachelor's degree (e.g., BA, AB, BS) 04/22/2020 Sex and Gender Information Value Date Recorded Sex Assigned at Male 07/09/2018 2:54 PM BOOKS SALESPERSON Gender Identity Male 07/09/2018 2:54 PM BOOKS SALESPERSON Sexual Orientation Straight 07/09/2018 2: 54 PM BOOKS SALESPERSON Last Filed Vital Signs Vital Sign Reading [...] history exists Medical Devices Implanted Type Area Mining Captain Device Identifier Shelf Expiration Date Model / Serial / Lot Cement Bone Small - Garcia [id number] Implanted:Qty: 1 on 05/27/2011 [facility] Other [place] Description:Device Manufactu rer - [place] Marvin.. Device Status Text - MISCOTHER-2841. Medpor - Maritza Wedge Left Regular - Garcia [id number] Implanted:Qty: 1 on 10/29/2014 [facility] Prosthesis Other/Legacy - See Implant Description Other/Legacy - See Implant Description Description:Device Manufactu rer - [employer]. Body Location - Other. Left. Device Status Text - [facility] [id number]. Sphere Medpor Sst Ez 20mm - Garcia [id number] Implanted:Qty: 1 on 07/02/2014 Ocular (Eye) Implant Other/Legacy - See Implant Description Other/Legacy - See Implant Description Description:Device Manufactu rer - [employer]. Body Location - Other. Left. Device Status Text - OCULARIMP-967054. Conformer [place] Medium - Garcia [id number] Implanted:Qty: 1 on 07/02/2014 Ocular (Eye) Implant Other/Legacy - See Implant Description [employer] Description:Device Manufactu rer - [employer]. Body Location - Other. Left. Device Status Text - OCULARIMP-557025. Reunion-Hum Stem Press-Fit 14mm - Garcia [id number] Implanted:Qty: 1 on 05/27/2011 Shoulder Implant Other/Legacy - See Implant Description Shanell Description:Device Manufactu rer - Shanell Marvin.. Body Location - Other. Right. Device Status Text - SHOULDER-952578. Reunion-Glenoi d S-Pressure X3 Sz48 - Garcia [id number] Implanted:Qty: 1 on 05/27/2011 Shoulder Implant Other/Legacy - See Implant Description Vernon Description:Device Manufactu rer - Shanell Marvin.. Body Location - Other. Right. Device Status Text - SHOULDER-225385. Reunion-Soo l Head Std 48 X 24 - Garcia [id number] Implanted:Qty: 1 on 05/27/2011 Shoulder Implant Other/Legacy - See Implant Description Shanell Description:Device Manufactu rer - Shanell Marvin.. Body Location - Other. Right. Device Status Text - SHOULDER-774393. Conversions - Default Historical Implant Device Implanted:12/25 (Quantity not on file) Shoulder Implant Right: Shoulder Description:Body Location - Shoulder R. TSA. Device Status Text - Shoulder Joint. Hum Cup Reu 4x36 - [id number] Implanted:Qty: 1 on 02/15/2023 by Douglas Lipscomb M.D., Ph.D. at [facility] Shoulder Implant Right: Shoulder [place] 01/30/2027 5570-360 4 / / [id number] Hum Ins Reu X3 Rvrs 10x36 - [id number] Implanted:Qty: 1 on 02/15/2023 by Douglas Lipscomb M.D., Ph.D. at [facility] Shoulder Implant Right: Shoulder Shanell 01/25/2027 5571-S-3 610-E / / [id number] Tornier Perform Reversed Glenoid, Press-Fit Short Post, Length: 7mm Implanted:Qty: 1 on 02/15/2023 by Douglas Lipscomb M.D., Ph.D. at [facility] Shoulder Implant Right: Shoulder [facility] 12/23/2027 [id number] / [id number] / Tornier Perform Reversed Augmented Glenoid, Full-Wedge Augment Baseplate, 29mm, Angle: 15 Degree Implanted:Qty: 1 on 02/15/2023 by Douglas Lipscomb M.D., Ph.D. at [facility] Shoulder Implant Right: Shoulder [facility] 12/31/2027 [id number] / [id number] / Tornier Perform Reversed Glenoid, Eccentric Glenosphere Cocr, Diameter: 36mm, Offset +2mm Implanted:Qty: 1 on 02/15/2023 by Douglas Lipscomb M.D., Ph.D. at [facility] Shoulder Implant Right: Shoulder [facility] 10/07/2027 [id number] / [id number] / Conversions - Default Historical Implant Device Implanted:12/25 (Quantity not on file) Spine Implant Spine Lumbar Description:Body Location - Lumbar. Device Status Text - Spine Implant. Explanted Type Area Mining Captain Device Identifier Shelf Expiration Date Model / Serial / Lot Splnt Ext Fx Dgt Pip Jnt Lg - [id number] Implanted:Qty: 1 on 06/03/2020 by Mehdi Diego M.D. at [facility] e.g. pins/screws/ rods [employer] 05/26/2029 [id number]-232 / / [id number] Procedures Procedure Name Priority Date/Time Associated Diagnosis Comments CT ABDOMEN PELVIS WITH IV CONTRAST RAD - Routine (most inpatients and all outpatients) 07/28/2023 9:48 AM BOOKS SALESPERSON Melanoma Choroid Left (HCC) EXTI COMPREHENSIVE METABOLIC PANEL, S/P Routine 06/08/2023 3:55 PM BOOKS SALESPERSON EXTI LIPID PANEL W REFLEX MEASURED LDL Routine 06/29/2020 10:48 AM BOOKS SALESPERSON from Last 3 Months or Most Recently Relevant to Health Maintenance Results * CT Abdomen Pelvis with IV Contrast (07/28/2023 9:48 AM BOOKS SALESPERSON) Anatomical Region Laterality Modality Abdomen, Pelvis, Abdominal R ST LOS, Abdominal ARZ LOS, Abdominal FLA LOS N/A Computed Tomograp hy, Computed Tomography 07/28/2023 9:25 AM BOOKS SALESPERSON Impressions 07/28/2023 10:23 AM BOOKS SALESPERSON 1. No evidence of metastatic disease within abdomen pelvis. 2. Stable incidental findings. Narrative 07/28/2023 10:23 AM BOOKS SALESPERSON EXAM: ??CT ABDOMEN PELVIS WITH IV CONTRAST [...] Recently Relevant to Health Maintenance Care Teams Medical Claims Processor Relationship Specialty Start Date End Date Elsewhere, Pcp PCP - General Internal Medicine 02/01/23
--- OUTSIDE RECORDS SUMMARY | 2023-12-07 15:47 | XMS_ITS | Referral Summary ---
Author Organization [facility] Address [address] [place] [address] Care Team Providers Care Transportation Maintenance Supervisor Name Role Phone Elsewhere, Pcp Primary Care Provider Unavailabl e Source Comments Patient records contain information from all sites at [facility]. For routine questions regarding patient records, call [phone] during business hours, M-F 8:00 AM - 5:00 PM Central Time. 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 More than 4 times per year 11/23/2021 Do you belong to any clubs o r organizations such as zoroastrianism groups, unions, fraternal or athletic groups, or [...] and heating? Not hard at all 01/23/2023 [facility] [place] of Occupat ional Health - Occupational Stress [...] Sex Assigned at Male 07/09/2018 2:54 PM SOFTWARE ENGINEER WEB SERVICES Gender Identity Male 07/09/2018 2:54 PM SOFTWARE ENGINEER WEB SERVICES Sexual Orientation Straight 07/09/2018 2: 54 PM SOFTWARE ENGINEER WEB SERVICES Last Filed Vital Signs Vital Sign Reading [...] on file Medical Devices Implanted Type Area Vacuum Drum Drier Operator Device Identifier Shelf Expiration Date Model / Serial / Lot Cement Bone Small - Garcia [id number] Implanted:Qty: 1 on 05/27/2011 [facility] Other [place] Description:Device Manufactu rer - [place] Marvin.. Device Status Text - MISCOTHER-2841. Medpor - Maritza Wedge Left Regular - Garcia [id number] Implanted:Qty: 1 on 10/29/2014 [facility] Prosthesis Other/Legacy - See Implant Description Other/Legacy - See Implant Description Description:Device Manufactu rer - [employer]. Body Location - Other. Left. Device Status Text - [facility] PROS-[id number]. Sphere Medpor Sst Ez 20mm - Garcia [id number] Implanted:Qty: 1 on 07/02/2014 Ocular (Eye) Implant Other/Legacy - See Implant Description Other/Legacy - See Implant Description Description:Device Manufactu rer - [employer]. Body Location - Other. Left. Device Status Text - OCULARIMP-036817. Conformer [place] Medium - Garcia [id number] Implanted:Qty: 1 on 07/02/2014 Ocular (Eye) Implant Other/Legacy - See Implant Description [employer] Description:Device Manufactu rer - [employer]. Body Location - Other. Left. Device Status Text - OCULARIMP-296283. Reunion-Hum Stem Press-Fit 14mm - Garcia [id number] Implanted:Qty: 1 on 05/27/2011 Shoulder Implant Other/Legacy - See Implant Description [place] Description:Device Manufactu rer - Shanell Marvin.. Body Location - Other. Right. Device Status Text - SHOULDER-250146. Reunion-Glenoi d S-Pressure X3 Sz48 - Garcia [id number] Implanted:Qty: 1 on 05/27/2011 Shoulder Implant Other/Legacy - See Implant Description [place] Description:Device Manufactu rer - Shanell Marvin.. Body Location - Other. Right. Device Status Text - SHOULDER-988837. Reunion-Soo l Head Std 48 X 24 - Garcia [id number] Implanted:Qty: 1 on 05/27/2011 Shoulder Implant Other/Legacy - See Implant Description Shanell Description:Device Manufactu rer - Shanell Marvin.. Body Location - Other. Right. Device Status Text - SHOULDER-392673. Conversions - Default Historical Implant Device Implanted:12/25 (Quantity not on file) Shoulder Implant Right: Shoulder Description:Body Location - Shoulder R. TSA. Device Status Text - Shoulder Joint. Hum Cup Reu 4x36 - [id number] Implanted:Qty: 1 on 02/15/2023 by Douglas Lipscomb M.D., Ph.D. at [facility] Shoulder Implant Right: Shoulder Shanell 01/30/2027 5570-360 4 / / [id number] Hum Ins Reu X3 Rvrs 10x36 - [id number] Implanted:Qty: 1 on 02/15/2023 by Douglas Lipscomb M.D., Ph.D. at [facility] Shoulder Implant Right: Shoulder Shanell 01/25/2027 5571-S-3 610-E / / [id number] Melina Perform Reversed Glenoid, Press-Fit Short Post, Length: 7mm Implanted:Qty: 1 on 02/15/2023 by Douglas Lipscomb M.D., Ph.D. at [facility] Shoulder Implant Right: Shoulder [facility] 12/23/2027 [id number] / [id number] / Melina Perform Reversed Augmented Glenoid, Full-Wedge Augment Baseplate, 29mm, Angle: 15 Degree Implanted:Qty: 1 on 02/15/2023 by Douglas Lipscomb M.D., Ph.D. at [facility] Shoulder Implant Right: Shoulder [facility] 12/31/2027 [id number] / [id number] / Melina Perform Reversed Glenoid, Eccentric Glenosphere Cocr, Diameter: 36mm, Offset +2mm Implanted:Qty: 1 on 02/15/2023 by Douglas Lipscomb M.D., Ph.D. at [facility] Shoulder Implant Right: Shoulder [facility] 10/07/2027 [id number] / [id number] / Conversions - Default Historical Implant Device Implanted:12/25 (Quantity not on file) Spine Implant Spine Lumbar Description:Body Location - Lumbar. Device Status Text - Spine Implant. Explanted Type Area Vacuum Drum Drier Operator Device Identifier Shelf Expiration Date Model / Serial / Lot Splnt Ext Fx Dgt Pip Jn Lg - [id number] Implanted:Qty: 1 on 06/03/2020 by Mehdi Diego M.D. at [facility] Hardware e.g. pins/screws/ rods [employer] 05/26/2029 DWD-232 / / [id number] Procedures Procedure Name Priority Date/Time Associated Diagnosis Comments CT ABDOMEN PELVIS WITH IV CONTRAST RAD - Routine (most inpatients and all outpatients) 07/28/2023 9:48 AM SOFTWARE ENGINEER WEB SERVICES Melanoma Choroid Left (HCC) EXTI COMPREHENSIVE METABOLIC PANEL, S/P Routine 06/08/2023 3:55 PM SOFTWARE ENGINEER WEB SERVICES EXTI LIPID PANEL W REFLEX MEASURED LDL Routine 06/29/2020 10:48 AM SOFTWARE ENGINEER WEB SERVICES from Last 3 Months or Most Recently Relevant to Health Maintenance Results * CT Abdomen Pelvis with IV Contrast (07/28/2023 9:48 AM SOFTWARE ENGINEER WEB SERVICES) Anatomical Region Laterality Modality Abdomen, Pelvis, Abdominal R ST LOS, Abdominal ARZ LOS, Abdominal FLA LOS N/A Computed Tomograp hy, Computed Tomography 07/28/2023 9:25 AM SOFTWARE ENGINEER WEB SERVICES Impressions 07/28/2023 10:23 AM SOFTWARE ENGINEER WEB SERVICES 1. No evidence of metastatic disease within abdomen pelvis. 2. Stable incidental findings. Narrative 07/28/2023 10:23 AM SOFTWARE ENGINEER WEB SERVICES EXAM: ??CT ABDOMEN PELVIS WITH IV CONTRAST [...] Recently Relevant to Health Maintenance Care Teams Transportation Maintenance Supervisor Relationship Specialty Start Date End Date Elsewhere, Pcp PCP - General Internal Medicine 02/01/23
--- OUTSIDE RECORDS SUMMARY | 2023-12-07 15:47 | XMS_ITS | Encounter Summary ---
Author Organization [facility] Address [address] [place] [address] Care Team Providers Care Meal Miller Name Role Phone Elsewhere, Pcp Primary Care Provider Unavailabl e Encounter Details Date Type Department Care Team (Late st Contact Info) Description 01/09/2014 Historical Ophthalmology RST OPH Kenyon Lucas M.D. Social History Tobacco Use Types Packs/Day Years Used Date Smoking Tobacco: Never Assessed Sex and Gender Information Value Date Recorded Sex Assigned at Male 07/09/2018 2:54 PM APPLICATION TESTER Gender Identity Male 07/09/2018 2:54 PM APPLICATION TESTER Sexual Orientation Straight 07/09/2018 2: 54 PM APPLICATION TESTER documented as of this encounter Progress Notes [...] left eye 09/03; mushroom-shaped lesion (pigmented base 13.9f30q4zk with amelanotic apex; vascularization of apex without drusen or orange pigment; base 5mm from disc superonasally; Subretinal fluid surroundingbase; SD 360 degrees; invasion of choroidal mass into and under retina -US with isshzz-vf-bzh reflectivity and mushroom shape; extensive growth over [...] was discussed with the patient (or legal technical sales representative and others present during the [...] to continue with more Avastin left eye T0ucgbo apart with Dr. Medellin. Will do Avastin [...] This was discussed with thepatient (or legal technical sales representative and others present during discussion).. The patient understands and wishes to proceed. Discussed in detail lack of toxicity data, lack of approval for intraocular useand that there have been hundreds if not thousands treated since December 2004. Discussed possible systemic problems such as GI bleed, [place] and stroke. Plan to proceed with Avastin [...] right eye CDM Reports - EYEGEN Id: [id number] Status: Fnl documented in this encounter Plan of Treatment Not on file documented as of this encounter Visit Diagnoses Not on filedocumented in this encounter Additional Health Concerns Infection Onset Date Last Indicated Resolved Time COVID19 Pending 06/01/2020 06/01/2020 06/01/2020 9 :35 PM APPLICATION TESTER COVID19 Pending 09/28/2020 09/28/2020 09/28/2020 1 2:02 PM CDT COVID19 Pending 01/13/2022 01/13/2022 01/13/2022 9 :52 PM CDT Assessment Noted Time PHQ-9 Depression Total Score: 7 09/21/19 11 11:02 AM CDT documented as of this encounter Care Teams Meal Miller Relationship Specialty Start Date End Date Elsewhere, Pcp PCP - General Internal Medicine 02/01/23 documented as of this encounter
--- OUTSIDE RECORDS SUMMARY | 2023-12-07 15:47 | XMS_ITS | Encounter Summary ---
Author Organization [facility] Address [address] [place] [address] Care Team Providers Care Batter Mixer Name Role Phone Elsewhere, Pcp Primary Care Provider Unavailabl e Encounter Details Date Type Department Care Team (Late st Contact Info) Description 10/27/2014 Historical Ophthalmology [facility] Jacobo Crawford M.D. 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 Id: [id number] Status: Fnl documented in this encounter Plan of Treatment Not on file documented as of this encounter Visit Diagnoses Not on filedocumented in this encounter Additional Health Concerns Infection Onset Date Last Indicated Resolved Time COVID19 Pending 06/01/2020 06/01/2020 06/01/2020 9 :35 PM FISHING VESSEL DECKHAND COVID19 Pending 09/28/2020 09/28/2020 09/28/2020 1 2:02 PM CDT COVID19 Pending 01/13/2022 01/13/2022 01/13/2022 9 :52 PM CDT Assessment Noted Time PHQ-9 Depression Total Score: 7 09/21/19 11 11:02 AM CDT documented as of this encounter Care Teams Batter Mixer Relationship Specialty Start Date End Date Elsewhere, Pcp PCP - General Internal Medicine 02/01/23 documented as of this encounter
--- OUTSIDE RECORDS SUMMARY | 2023-12-07 15:47 | XMS_ITS | Encounter Summary ---
Author Organization [facility] Address [address] [place] [address] Care Team Providers Care Account Underwriter Name Role Phone Elsewhere, Pcp Primary Care Provider Unavailabl e Encounter Details Date Type Department Care Team (Late st Contact Info) Description 02/19/2015 Historical Ophthalmology [facility] Jacobo Crawford M.D. 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 Id: [id number] Status: Fnl documented in this encounter Plan of Treatment Not on file documented as of this encounter Visit Diagnoses Not on filedocumented in this encounter Additional Health Concerns Infection Onset Date Last Indicated Resolved Time COVID19 Pending 06/01/2020 06/01/2020 06/01/2020 9 :35 PM PHYSICIAN RELATIONS REPRESENTATIVE COVID19 Pending 09/28/2020 09/28/2020 09/28/2020 1 2:02 PM CDT COVID19 Pending 01/13/2022 01/13/2022 01/13/2022 9 :52 PM CDT Assessment Noted Time PHQ-9 Depression Total Score: 7 09/21/19 11 11:02 AM CDT documented as of this encounter Care Teams Account Underwriter Relationship Specialty Start Date End Date Elsewhere, Pcp PCP - General Internal Medicine 02/01/23 documented as of this encounter
--- OUTSIDE RECORDS SUMMARY | 2023-12-07 15:47 | XMS_ITS | Encounter Summary ---
Author Organization [facility] Address [address] [place] [address] Care Team Providers Care Safety Patrol Officer Name Role Phone Elsewhere, Pcp Primary Care Provider Unavailabl e Encounter Details Date Type Department Care Team (Late st Contact Info) Description 01/30/2013 Historical Ophthalmology RST OPH Kenyon Lucas M.D. Social History Tobacco Use Types Packs/Day Years Used Date Smoking Tobacco: Never Assessed Sex and Gender Information Value Date Recorded Sex Assigned at Male 07/09/2018 2:54 PM SYSTEM PLANNING ENGINEER Gender Identity Male 07/09/2018 2:54 PM SYSTEM PLANNING ENGINEER Sexual Orientation Straight 07/09/2018 2: 54 PM SYSTEM PLANNING ENGINEER documented as of this encounter Progress Notes * Kenyon Lucas M.D. - 01/30/2013 1:22 PM CDT Eye General CHIEF COMPLAINT Choroidal lesion, left eye, medium sized melanoma HISTORY OF PRESENT ILLNESS 62 year old male here for follow up on Choroidal lesion, left eye, medium sized melanoma . 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 Patient denies ocularpain. Floaters alone; right eye; x several years; on and off. Denies flashes of light. ANALIA - pt states that he thinks the vision left eye greatly deteriorated more ~2 months ago. Has been getting Avastin to left eye with Dr. Medellin in [place], [place], last left Avastin January 02, 2013 [...] left eye 09/03; mushroom-shaped lesion (pigmented base [id number] with amelanotic apex; vascularization of apex without drusen or orange pigment; base 5mm from disc superonasally; Subretinal fluid surroundingbase; SD 360 degrees; invasion of choroidal mass into and under retina -US with nzvhnn-ng-oew reflectivity and mushroom shape; extensive growth over [...] discussed with the patient (or legal medical billing representative and others present during the discussion). [...] to continue with more Avastin left eye [id number] apart with Dr. Medellin. Will do Avastin [...] was discussed with thepatient (or legal medical billing representative and others present during discussion).. The patient understands and wishes to proceed. Discussed in detail lack of toxicity data, lack of approval for intraocular useand that there have been hundreds if not thousands treated since December 2004. Discussed possible systemic problems such as GI bleed, [place] and stroke. Plan to proceed with Avastin [...] right eye CDM Reports - EYEGEN Id: [id number] Status: Fnl documented in this encounter Plan of Treatment Not on file documented as of this encounter Visit Diagnoses Not on filedocumented in this encounter Additional Health Concerns Infection Onset Date Last Indicated Resolved Time COVID19 Pending 06/01/2020 06/01/2020 06/01/2020 9 :35 PM SYSTEM PLANNING ENGINEER COVID19 Pending 09/28/2020 09/28/2020 09/28/2020 1 2:02 PM CDT COVID19 Pending 01/13/2022 01/13/2022 01/13/2022 9 :52 PM CDT Assessment Noted Time PHQ-9 Depression Total Score: 7 09/21/19 11 11:02 AM CDT documented as of this encounter Care Teams Safety Patrol Officer Relationship Specialty Start Date End Date Elsewhere, Pcp PCP - General Internal Medicine 02/01/23 documented as of this encounter
--- OUTSIDE RECORDS SUMMARY | 2023-12-07 15:47 | XMS_ITS | Encounter Summary ---
Author Organization [facility] Address [address] [place] [address] Care Team Providers Care Certified Driver Examiner Name Role Phone Elsewhere, Pcp Primary Care Provider Unavailabl e Encounter Details Date Type Department Care Team (Late st Contact Info) Description 06/18/2012 Historical Ophthalmology RST OPH Kenyon Lucas M.D. Social History Tobacco Use Types Packs/Day Years Used Date Smoking Tobacco: Never Assessed Sex and Gender Information Value Date Recorded Sex Assigned at Male 07/09/2018 2:54 PM GUEST REQUEST RUNNER Gender Identity Male 07/09/2018 2:54 PM GUEST REQUEST RUNNER Sexual Orientation Straight 07/09/2018 2: 54 PM GUEST REQUEST RUNNER documented as of this encounter Progress Notes [...] no biopsy -09/03; mushroom-shaped lesion (pigmented base [id number] with amelanotic apex; vascularization of apex without drusen or orange pigment; base 5mm from disc superonasally; Subretinal fluid surroundingbase; SD 360 degrees; invasion of choroidal mass into and under retina -US with qxgypj-ai-oas reflectivity and mushroom shape; extensive growth over [...] was discussed with the patient (or legal promotional representative and others present during the discussion). [...] to continue with more Avastin left eye [id number] apart with Dr. Medellin. Will do Avastin [...] This was discussed with thepatient (or legal promotional representative and others present during discussion).. The patient understands and wishes to proceed. Discussed in detail lack of toxicity data, lack of approval for intraocular useand that there have been hundreds if not thousands treated since December 2004. Discussed possible systemic problems such as GI bleed, [place] and stroke. Plan to proceed with Avastin [...] on nose CDM Reports - EYEGEN Id: [id number] Status: Fnl documented in this encounter Plan of Treatment Not on file documented as of this encounter Visit Diagnoses Not on filedocumented in this encounter Additional Health Concerns Infection Onset Date Last Indicated Resolved Time COVID19 Pending 06/01/2020 06/01/2020 06/01/2020 9 :35 PM GUEST REQUEST RUNNER COVID19 Pending 09/28/2020 09/28/2020 09/28/2020 1 2:02 PM CDT COVID19 Pending 01/13/2022 01/13/2022 01/13/2022 9 :52 PM CDT Assessment Noted Time PHQ-9 Depression Total Score: 7 09/21/19 11 11:02 AM CDT documented as of this encounter Care Teams Certified Driver Examiner Relationship Specialty Start Date End Date Elsewhere, Pcp PCP - General Internal Medicine 02/01/23 documented as of this encounter
--- OUTSIDE RECORDS SUMMARY | 2023-12-07 15:47 | XMS_ITS | Encounter Summary ---
Author Organization [facility] Address [address] [place] [address] Care Team Providers Care Nuclear Control Room Operator Name Role Phone Elsewhere, Pcp Primary Care Provider Unavailabl e Encounter Details Date Type Department Care Team (Late st Contact Info) Description 10/02/2014 Historical Ophthalmology [facility] Jacobo Crawford M.D. [address] [place] [address] Social History Tobacco Use Types Packs/Day Years Used Date Smoking Tobacco: Never Assessed Sex and Gender Information Value Date Recorded Sex Assigned at Male 07/09/2018 2:54 PM ROLL SKINNER Gender Identity Male 07/09/2018 2:54 PM ROLL SKINNER Sexual Orientation Straight 07/09/2018 2: 54 PM ROLL SKINNER documented as of this encounter Progress Notes * Jacobo Crawford M.D. - 10/02/2014 8:26 AM CDT Eye General CHIEF COMPLAINT s/p enucleation, left eye HISTORY OF PRESENT ILLNESS HR: s/p enucleation for choroidal melanoma left eye. He had a prosthetic made 1 month ago by [facility]. 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 Id: [id number] Status: Fnl documented in this encounter Plan of Treatment Not on file documented as of this encounter Visit Diagnoses Not on filedocumented in this encounter Additional Health Concerns Infection Onset Date Last Indicated Resolved Time COVID19 Pending 06/01/2020 06/01/2020 06/01/2020 9 :35 PM ROLL SKINNER COVID19 Pending 09/28/2020 09/28/2020 09/28/2020 1 2:02 PM CDT COVID19 Pending 01/13/2022 01/13/2022 01/13/2022 9 :52 PM CDT Assessment Noted Time PHQ-9 Depression Total Score: 7 09/21/19 11 11:02 AM CDT documented as of this encounter Care Teams Nuclear Control Room Operator Relationship Specialty Start Date End Date Elsewhere, Pcp PCP - General Internal Medicine 02/01/23 documented as of this encounter
--- OUTSIDE RECORDS SUMMARY | 2023-12-07 15:47 | XMS_ITS | Encounter Summary ---
Author Organization [facility] Address [address] [place] [address] Care Team Providers Care Threading Machine Feeder Automatic Name Role Phone Elsewhere, Pcp Primary Care Provider Unavailabl e Encounter Details Date Type Department Care Team (Late st Contact Info) Description 06/30/2014 Historical Ophthalmology RST O[facility] Jacobo Crawford M.D. [address] [place] [address] Social History Tobacco Use Types Packs/Day Years Used Date Smoking Tobacco: Never Assessed Sex and Gender Information Value Date Recorded Sex Assigned at Male 07/09/2018 2:54 PM ICT SUPPORT AND TEST ENGINEERS Gender Identity Male 07/09/2018 2:54 PM ICT SUPPORT AND TEST ENGINEERS Sexual Orientation Straight 07/09/2018 2: 54 PM ICT SUPPORT AND TEST ENGINEERS documented as of this encounter Progress Notes [...] left eye. CDM Reports - EYEGEN Id: [id number] Status: Fnl documented in this encounter Plan of Treatment Not on file documented as of this encounter Visit Diagnoses Not on filedocumented in this encounter Additional Health Concerns Infection Onset Date Last Indicated Resolved Time COVID19 Pending 06/01/2020 06/01/2020 06/01/2020 9 :35 PM ICT SUPPORT AND TEST ENGINEERS COVID19 Pending 09/28/2020 09/28/2020 09/28/2020 1 2:02 PM CDT COVID19 Pending 01/13/2022 01/13/2022 01/13/2022 9 :52 PM CDT Assessment Noted Time PHQ-9 Depression Total Score: 7 09/21/19 11 11:02 AM CDT documented as of this encounter Care Teams Threading Machine Feeder Automatic Relationship Specialty Start Date End Date Elsewhere, Pcp PCP - General Internal Medicine 02/01/23 documented as of this encounter
--- OUTSIDE RECORDS SUMMARY | 2023-12-07 15:47 | XMS_ITS | Encounter Summary ---
Author Organization [facility] Address [address] [place] [address] Care Team Providers Care Cellophane Press Operator Name Role Phone Elsewhere, Pcp Primary Care Provider Unavailabl e Encounter Details Date Type Department Care Team (Late st Contact Info) Description 04/16/2015 Historical Ophthalmology RST O[facility] Kenyon Lucas M.D. Social History Tobacco Use Types Packs/Day Years Used Date Smoking Tobacco: Never Assessed Sex and Gender Information Value Date Recorded Sex Assigned at Male 07/09/2018 2:54 PM TRACK LEADER Gender Identity Male 07/09/2018 2:54 PM TRACK LEADER Sexual Orientation Straight 07/09/2018 2: 54 PM TRACK LEADER documented as of this encounter Progress Notes [...] enucleation 07/10 09/03; mushroom-shaped lesion (pigmented base [id number] with amelanotic apex; vascularization of apex without drusen or orange pigment; base 5mm from disc superonasally; Subretinal fluid surroundingbase; SD 360 degrees; invasion of choroidal mass into and under retina -US with joakki-oo-int reflectivity and mushroom shape; extensive growth over [...] was discussed with the patient (or legal insurance verification representative and others present during the discussion). [...] to continue with more Avastin left eye [id number] apart with Dr. Medellin. Will do Avastin [...] This was discussed with thepatient (or legal insurance verification representative and others present during discussion).. The patient understands and wishes to proceed. Discussed in detail lack of toxicity data, lack of approval for intraocular useand that there have been hundreds if not thousands treated since December 2004. Discussed possible systemic problems such as GI bleed, [place] and stroke. Plan to proceed with Avastin [...] right eye CDM Reports - EYEGEN Id: [id number] Status: Fnl documented in this encounter Plan of Treatment Not on file documented as of this encounter Visit Diagnoses Not on filedocumented in this encounter Additional Health Concerns Infection Onset Date Last Indicated Resolved Time COVID19 Pending 06/01/2020 06/01/2020 06/01/2020 9 :35 PM TRACK LEADER COVID19 Pending 09/28/2020 09/28/2020 09/28/2020 1 2:02 PM CDT COVID19 Pending 01/13/2022 01/13/2022 01/13/2022 9 :52 PM CDT Assessment Noted Time PHQ-9 Depression Total Score: 7 09/21/19 11 11:02 AM CDT documented as of this encounter Care Teams Cellophane Press Operator Relationship Specialty Start Date End Date Elsewhere, Pcp PCP - General Internal Medicine 02/01/23 documented as of this encounter
--- OUTSIDE RECORDS SUMMARY | 2023-12-07 15:47 | XMS_ITS | Clinical Summary ---
Author Organization [employer] Aff[facility] Address [place], [place] [address] Care Team Providers Care Personnel Records Clerk Name Role Phone Raza Marks MD Unavailable Unavailable River Darby MD Unavailable Cathleen Patel DO Primary Care Provider Laura Trimble MD Unavailable [phone] Marva Bran NP Unavailable Allergies No known [...] noted in the central right upper lobe ([facility] CT March 2020) Needs repeat CT 4 to 6 months. 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 Prostate CA 10/05/2010 Overview: Patient following with serial PSAs - being monitored by Urology. Being followed at [facility]: S/P recent biopsy; quarterly PSA and [...] Overview: Added automatically from request for surgery [id number] Controlled substance agreement signed 10/20/2016 01/02/2019 Overview: Signed: 10/05/2011 Dr. Alan Singh / psychiatry Lumbar disc herniation 11/05/201210/11 Arthritis of right shoulder region 2010 10/11/2021 Unspecified visual loss 07/07/201009/24 Overview: Left; acute onset over past month. improved with eye drops. 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 09/14/2010 Encounters Date Type Department Care Team Description 11/27/2023 9:30 AM CDT Office Visit [facility] [address] [place] [address] Tu Claros MD Sleep Follow-up 11/27/2023 Travel 11/03/2023 Refill [facility] [address] [place] [address] Cathleen Patel DO Refill Request (Oxybutynin Xl) 10/24/2023 2:30 PM CDT Office Visit [facility] [address] [place] [address] Laura Trimble MD Consult (Pruritis) 10/24/2023 Travel 10/20/2023 Refill [facility] [address] [place] [address] Cathleen Patel DO Refill Request (Sertraline) 10/19/2023 Refill [facility] [address] [place] [address] Cathleen Patel DO Refill Request (Dextroamphetamine-am phetamine, Dextroamphetamine-amp hetamine) 10/07/2023 Refill [facility] [address] [place] [address] Cathleen Patel DO Refill Request (Zolpidem) 10/02/2023 Telephone [facility] [address] [place] [address] Marva Bran NP Appointment 10/01/2023 Telephone [facility] [address] [place], [place] [phone] Pawan Caceres MD Results 09/25/2023 1:20 PM CDT Office Visit [facility] [address] [place] [address] Pawan Caceres MD Allergies ( Consult-ITCHING (referred [...] IIV3 (Age 65+ Years) Preserv Free 04/15/2019,04/10/2018 English Encephalitis 05/27/2019,04/25/2019 MMR 04/25/2019 Pneumococcal Poly,23-Valent (Pneumovax) [...] add Relation Name Status Comments Brother 1 Camp[place] Alive Brother 2 Alive Brother 3 Mak [...] Description 04/17/2024 10:30 AM CDT Orders Only [facility] [address] [place] [address] Lab, [place] 04/24/2024 10:45 AM CDT Office Visit [facility] [place] [facility] [place] [address] [place] [address] Marva Bran, WEB INTERFACE DEVELOPER [address] [place] [address] Health Maintenance Due Date Last [...] Completed 08/15/2022 Medical Devices Implanted Type Area Athletic Coach Device Identifier Shelf Expiration Date Model / Serial / Lot Jean Claude 4.0cmx5.5mm Pre-Cut - [id number] Implanted:Qty: 2 on 07/09/[address] [facility] Spine Implants Spine SOFAMOR DANEK [id number]# / / [id number] one Canclls Crushed 30cc [[id number]] Implanted:Qty: 1 on 07/09/[address] [facility] Explanted:at [facility] (Quantity not on file) Spine Allosource 04/22/2012 [id number]# / [id number] / [id number] one Canclls Crushed 30cc [[id number]] Implanted:Qty: 1 on 07/09/[address] [facility] Explanted:at [facility] (Quantity not on file) Spine Allosource 04/30/2012 [id number]# / [id number] / Kit Infuse Sm - [id number] Implanted:Qty: 1 on 07/09/[address] [facility] Spine SOFAMOR DANEK [id number]# / / [id number] I Screw Tsrh Tc 7.5x45mm Std Titnm - [id number] Implanted:Qty: 4 on 07/09/[address] [facility] Spine MEDTRONIC PS MEDICAL [id number]# / / Cnnctr Tsrh Tc 5.5mm Sm Titnm - [id number] Implanted:Qty: 4 on 07/09/[address] [facility] Spine MEDTR[employer] PS MEDICAL [id number]# / / Capstone 14x26 - [id number] Implanted:Qty: 1 on 07/09/[address] [facility] Spine SOFAMOR DANEK [id number]# / / [id number] Procedures Procedure Name Priority Date/Time Associated Diagnosis [...] ABD AORTA SCREENING Routine 08/15/2022 10:21 AM PET SITTER Screening for AAA (aortic abdominal aneurysm) LIPID PANEL W REFLEX MEASURED LDL Routine 06/29/2020 10:48 AM PET SITTER Mixed hyperlipidemia COLONOSCOPY SCREENING Routine 07/23/2019 8:42 AM PET SITTER Benign neoplasm of colon, unspecified part of colon ANTI HCV Routine 11/14/2013 2:42 PM CDT Need for hepatitis C screening test from Last 3 Months or Most Recently Relevant to Health Maintenance Results * (ABNORMAL) PROTEIN ELP SERUM W REFLEX (09/25/2023 2:11 PM CDT) ELP,ALBUMIN 4.14 3.31 - 5.31 g/dL 09/27/2023 1:56 PM CDT [facility] ELP,ALPHA 1 0.30 0.19 - 0.42 g/dL 09/27/2023 1:56 PM CDT [facility] ELP,ALPHA 2 0.59 0.44 - 1.03 g/dL 09/27/2023 1:56 PM CDT [facility] ELP,GAMMA 0.88 0.59 - 1.46 g/dL 09/27/2023 1:56 PM CDT [facility] ELP,BETA 0.70 0.52 - 1.05 g/dL 09/27/2023 1:56 PM CDT [facility] MONOCLONAL PEAK 1 0.09 <=0.00 g/dL 09/27/2023 1:56 PM CDT [facility] ELP INTERP,SERUM Monoclonal peak present in the slow gamma region. The finding of a monoclonal protein may be associated with a lymphoproliferative or plasma cell disorder. Consider serum free light chains, urine protein electrophoresis and urine immunofixation to further evaluate, if not already performed. ?? Interpreted and electronically signed by: Laura Irene MD 09/27/2023 1:56 PM CDT [facility] PROTEIN,TOTAL 6.6 6.0 - 8.0 g/dL 09/27/2023 1:56 PM CDT [facility] Blood BLOOD SPECIMEN / Unknown Venipuncture / Unknown 09/25/2023 2:11 PM CDT 09/25/2023 2:12 PM CDT Pawan Caceres MD CHEMISTRY [facility] [address] [place] [address], * TRYPTASE (09/25/2023 2:11 PM CDT) Tryptase 7.8 2.2 - 13.2 ug/L 09/27/2023 11:07 PM CDT [facility] Blood BLOOD SPECIMEN / Unknown Venipuncture / Unknown 09/25/2023 2:11 PM CDT 09/25/2023 2:12 PM CDT Narrative [facility] - 09/27/2023 11:07 PM CDT Performed at: ??01 - [facility] [address] [place], [place] ??[id number] Vehicle Dismantler: Ad Roa MD, Phone: ??[phone] Pawan Caceres MD SEND OUTS [facility] [address] [place] [address], * (ABNORMAL) CBC WITH AUTO DIFFERENTIAL (09/25/2023 2:11 PM CDT) WHITE BLOOD COUNT 6.1 4.5 - 11.0 thou/cu mm 09/25/2023 2:17 PM CDT [facility] RED BLOOD COUNT 4.97 4.30 - 5.90 mil/cu mm 09/25/2023 2:17 PM CDT [facility] HEMOGLOBIN 13.9 13.5 - 17.5 g/dL 09/25/2023 2:17 PM CDT [facility] HEMATOCRIT 40.1 37.0 - 53.0 % 09/25/2023 2:17 PM CDT [facility] MCV 81 80 - 100 fL 09/25/2023 2:17 PM CDT [facility] MCH 28.0 26.0 - 34.0 pg 09/25/2023 2:17 PM CDT [facility] MCHC 34.7 32.0 - 36.0 g/dL 09/25/2023 2:17 PM CDT [facility] RDW 14.6 11.5 - 15.5 % 09/25/2023 2:17 PM CDT [facility] PLATELET COUNT 125(L) 140 - 440 thou/cu mm 09/25/2023 2:17 PM CDT [facility] MPV 9.7 6.5 - 11.0 fL 09/25/2023 2:17 PM CDT [facility] % NEUT 64.8 % 09/25/2023 2:17 PM CDT [facility] % LYMPH 22.8 % 09/25/2023 2:17 PM CDT [facility] % MONO 8.4 % 09/25/2023 2:17 PM CDT [facility] % EOS 3.5 % 09/25/2023 2:17 PM CDT [facility] % BASO 0.5 % 09/25/2023 2:17 PM CDT [facility] ABSOLUTE NEUTROPHILS 3.9 1.7 - 7.0 thou/cu mm 09/25/2023 2:17 PM CDT [facility] ABSOLUTE LYMPHOCYTES 1.4 0.9 - 2.9 thou/cu mm 09/25/2023 2:17 PM CDT [facility] ABSOLUTE MONOCYTES 0.5 <0.9 thou/cu mm 09/25/2023 2:17 PM CDT [facility] ABSOLUTE EOSINOPHILS 0.2 <0.5 thou/cu mm 09/25/2023 2:17 PM CDT [facility] ABSOLUTE BASOPHILS 0.0 <0.3 thou/cu mm 09/25/2023 2:17 PM CDT [facility] Blood BLOOD SPECIMEN / Unknown Venipuncture / Unknown 09/25/2023 2:11 PM CDT 09/25/2023 2:12 PM CDT Pawan Caceres MD HEMATOLOGY [facility] [address] [place] [address], * IMMUNOFIXATION,SERUM (09/25/2023 2:11 PM CDT) IGG 910.55 610.30 - 1,616.00 mg/dL 09/27/2023 1:56 PM CDT [facility] IGA 197.53 84.50 - 499.00 mg/dL 09/27/2023 1:56 PM CDT [facility] IGM 72.59 35.00 - 242.00 mg/dL 09/27/2023 1:56 PM CDT [facility]AL [facility] IFIX INTERP,SERUM Immunofixation on [...] Laura Irene MD 09/27/2023 1:56 PM CDT [facility] ENTRAL [facility] Blood BLOOD SPECIMEN / Unknown Venipuncture / Unknown 09/25/2023 2:11 PM CDT 09/25/2023 2:12 PM CDT Pawan Caceres MD CHEMISTRY Performing Organization Address City/[facility] Co de Phone Number [facility] [address] [place] [address], [place] * T4,FREE (09/25/2023 2:11 PM CDT) T4,FREE 1.02 0.93 - 1.70 ng/dL 09/25/2023 9:09 PM CDT [facility] Blood BLOOD SPECIMEN / Unknown Venipuncture / Unknown 09/25/2023 2:11 PM CDT 09/25/2023 2:12 PM CDT Pawan Caceres MD CHEMISTRY Performing Organization Address [facility] Co de Phone Number [facility] [address] [place] [address], [place] * FERRITIN (09/25/2023 2:11 PM CDT) FERRITIN 61.3 30.0 - 400.0 ng/mL 09/25/2023 9:58 PM CDT [facility] Blood BLOOD SPECIMEN / Unknown Venipuncture / Unknown 09/25/2023 2:11 PM CDT 09/25/2023 2:12 PM CDT Pawan Caceres MD CHEMISTRY Performing Organization Address [facility] Co de Phone Number [facility] [address] [place] [address], [place] * US ABD AORTA SCREENING [[id number]] (08/15/2022 10:21 AM PET SITTER) Anatomical Region Laterality Modality Abdomen, AORTA Ultrasound 08/15/2022 3:17 PM PET SITTER Narrative 08/15/2022 3:17 PM PET SITTER For Patients: ??As a result of the [...] W REFLEX MEASURED LDL (06/29/2020 10:48 AM PET SITTER) CHOLESTEROL,TOTAL 251(H) 100 - 199 mg/dL 06/29/2020 5:37 PM PET SITTER [facility] TRAL LAB[facility]AT[facility] TRIGLYCERIDES 103 <150 mg/dL 06/29/2020 5:37 PM PET SITTER [facility] TRA LABORATORY HDL CHOLESTEROL 59 >40 mg/dL 5:37 PM PET SITTER [facility] NON-HDL CHOLESTEROL 192(H) <145 mg/dl 06/29/2020 5:37 PM PET SITTER [facility] TRA LAB[facility]ORY CHOL/HDL RATIO 4.25 <4.50 06/29/2020 5:37 PM PET SITTER [facility] TRAL LABORATORY LDL CHOLESTEROL 171(H) <=130 mg/dL 06/29/2020 5:37 PM PET SITTER [facility] TRA [facility] PROVIDER ORDERED STATUS RANDOM 06/29/2020 5:37 PM PET SITTER [facility] Blood BLOOD SPECIMEN / Unknown Venipuncture / Unknown 06/29/2020 10:48 AM PET SITTER 06/29/2020 10:49 AM PET SITTER Teto Navarro MD CHEMISTRY [facility] [address] [place] [address], * COLONOSCOPY SCREENING (07/23/2019 8:42 AM PET SITTER) Teto Navarro MD GI PROCEDURE ORD * ANTI HCV [64990.2] (11/14/2013 2:42 PM CDT) HEPATITIS C ANTIBODY Non-Reacti ve Non-Reacti ve 11/14/2013 11:59 PM CDT [facility] Blood specimen (specimen) BLOOD SPECIMEN / Unknown Venipuncture / Unknown 11/14/2013 2:42 PM CDT 11/14/2013 2:42 PM CDT Narrative [facility] - 11/14/2013 11:59 PM CDT Antibodies to HCV not detected; does not exclude the possibility of exposure to HCV. Teto Navarro MD SEND OUTS [employer] [facility] [employer] [facility]AT[facility] [address] [place] [address], [place] from Last 3 Months or Most Recently Relevant to Health Maintenance Advance Directives * Full Code (Latest Code Status on File) Date Activated Date Inactivated Comments 06/03/2014 7:55 AM 06/03/2014 12:08 PM * Full Code Date Activated Date Inactivated Comments 05/05/2014 10:40 AM 05/05/2014 3:08 PM Care Teams Personnel Records Clerk Relationship Specialty Start Date End Date Cathleen Patel DO [address] [place] [address] PCP - General Family Practice 02/10/22 Raza aMrks MD [address] [place] [address] Ophthalmology Ophthalmology Surgery 06/28/11 River Darby MD [address] [place] [address] Gastroenterology Gastroenterology 06/28/11 Laura Trimble MD [address] [place] [address] Medical Oncologist Hematology and Oncology 11/06/23 Marva Bran NP [address] [place] [address] Nurse Practitioner Hematology and Oncology 11/06/23
--- OUTSIDE RECORDS SUMMARY | 2023-12-07 15:47 | XMS_ITS ---
Author Organization [facility] Address [address] [place] [address] Care Team Providers Care Shipping And Receiving Specialist Name Role Phone Unavailable Unavailable Unavailable Surgery Details Not on file Complications Check Surgery Details section. Procedure Estimated Blood Loss Check Surgery Details section. Procedure Findings Check Surgery Details section. Procedure Specimens Taken Check Surgery Details section.
--- OUTSIDE RECORDS SUMMARY | 2023-12-07 15:47 | XMS_ITS | Encounter Summary ---
Author Organization [facility] Address [address] [place] [address] Care Team Providers Care Structural Engineer Name Role Phone Elsewhere, Pcp Primary Care Provider Unavailabl e Encounter Details Date Type Department Care Team (Late st Contact Info) Description 02/13/2017 Historical Ophthalmology [facility] Kenyon Lucas M.D. Social History Tobacco Use Types Packs/Day Years Used Date Smoking Tobacco: Former Sex and Gender Information Value Date Recorded Sex Assigned at Male 07/09/2018 2:54 PM SALES PROMOTION COORDINATOR Gender Identity Male 07/09/2018 2:54 PM SALES PROMOTION COORDINATOR Sexual Orientation Straight 07/09/2018 2: 54 PM SALES PROMOTION COORDINATOR documented as of this encounter Progress [...] seems to more mattered. Last cleaned at [facility] over a year ago. Notes, he [...] enucleation 07/10 09/03; mushroom-shaped lesion (pigmented base 13.8l70g5ov with amelanotic apex; vascularization of apex without drusen or orange pigment; base 5mm from disc superonasally; Subretinal fluid surroundingbase; SD 360 degrees; invasion of choroidal mass into and under retina -US with oqqurx-vd-xeu reflectivity and mushroom shape; extensive growth over [...] discussed with the patient (or legal medical detail representative and others present during the discussion). [...] to continue with more Avastin left eye [id number] apart with Dr. Medellin. Will do Avastin [...] was discussed with thepatient (or legal medical detail representative and others present during discussion).. The patient understands and wishes to proceed. Discussed in detail lack of toxicity data, lack of approval for intraocular useand that there have been hundreds if not thousands treated since December 2004. Discussed possible systemic problems such as GI bleed, RI and stroke. Plan to proceed with Avastin [...] right eye CDM Reports - EYEGEN Id: [id number] Status: Fnl documented in this encounter Plan of Treatment Not on file documented as of this encounter Visit Diagnoses Not on filedocumented in this encounter Additional Health Concerns Infection Onset Date Last Indicated Resolved Time COVID19 Pending 06/01/2020 06/01/2020 06/01/2020 9 :35 PM SALES PROMOTION COORDINATOR COVID19 Pending 09/28/2020 09/28/2020 09/28/2020 1 2:02 PM CDT COVID19 Pending 01/13/2022 01/13/2022 01/13/2022 9 :52 PM CDT Assessment Noted Time PHQ-9 Depression Total Score: 7 09/21/19 11 11:02 AM CDT documented as of this encounter Care Teams Structural Engineer Relationship Specialty Start Date End Date Elsewhere, Pcp PCP - General Internal Medicine 02/01/23 documented as of this encounter
--- OUTSIDE RECORDS SUMMARY | 2023-12-07 15:47 | XMS_ITS | Encounter Summary ---
Author Organization [facility] Address [address] [place] [address] Care Team Providers Care Inspector Assembly Name Role Phone Elsewhere, Pcp Primary Care Provider Unavailabl e Encounter Details Date Type Department Care Team (Late st Contact Info) Description 05/16/2012 Historical Ophthalmology [facility]ST [facility] Kenyon [place] M.D. Social History Tobacco Use Types Packs/Day Years Used Date Smoking Tobacco: Never Assessed Sex and Gender Information Value Date Recorded Sex Assigned at Male 07/09/2018 2:54 PM COOKING CHEF Gender Identity Male 07/09/2018 2:54 PM COOKING CHEF Sexual Orientation Straight 07/09/2018 2: 54 PM COOKING CHEF documented as of this encounter Progress Notes [...] no biopsy -09/03; mushroom-shaped lesion (pigmented base 13.3l69q9lr with amelanotic apex; vascularization of apex without drusen or orange pigment; base 5mm from disc superonasally; Subretinal fluid surroundingbase; SD 360 degrees; invasion of choroidal mass into and under retina -US with scsqrh-sf-qyn reflectivity and mushroom shape; extensive growth over [...] was discussed with the patient (or legal consumer sales representative and others present during the [...] FU for 3 more Avastin left eye [id number] apart with Dr. Medellin. FU in 4 [...] on nose CDM Reports - EYEGEN Id: [id number] Status: Fnl documented in this encounter Plan of Treatment Not on file documented as of this encounter Visit Diagnoses Not on filedocumented in this encounter Additional Health Concerns Infection Onset Date Last Indicated Resolved Time COVID19 Pending 06/01/2020 06/01/2020 06/01/2020 9 :35 PM COOKING CHEF COVID19 Pending 09/28/2020 09/28/2020 09/28/2020 1 2:02 PM CDT COVID19 Pending 01/13/2022 01/13/2022 01/13/2022 9 :52 PM CDT Assessment Noted Time PHQ-9 Depression Total Score: 7 09/21/19 11 11:02 AM CDT documented as of this encounter Care Teams Inspector Assembly Relationship Specialty Start Date End Date Elsewhere, Pcp PCP - General Internal Medicine 02/01/23 documented as of this encounter
--- OUTSIDE RECORDS SUMMARY | 2023-12-07 15:47 | XMS_ITS | Encounter Summary ---
Author Organization [facility] Address [address] [place] [address] Care Team Providers Care Fats And Oils Loader Name Role Phone Elsewhere, Pcp Primary Care Provider Unavailabl e Encounter Details Date Type Department Care Team (Late st Contact Info) Description 09/01/2014 Historical Ophthalmology RST O[facility] Jacobo Crawford M.D. [address] [place] [address] Social History Tobacco Use Types Packs/Day Years Used Date Smoking Tobacco: Never Assessed Sex and Gender Information Value Date Recorded Sex Assigned at Male 07/09/2018 2:54 PM FOURTH MATE Gender Identity Male 07/09/2018 2:54 PM FOURTH MATE Sexual Orientation Straight 07/09/2018 2: 54 PM FOURTH MATE documented as of this encounter Progress Notes * Jacobo Crawford M.D. - 09/01/2014 8:26 AM CDT Eye Postoperative MULTI-VISIT DOCUMENT This document contains multiple patient visits and is available for review in Document Viewer. CDM Reports - EYEPO Id: [id number] Status: Fnl documented in this encounter Plan of Treatment Not on file documented as of this encounter Visit Diagnoses Not on filedocumented in this encounter Additional Health Concerns Infection Onset Date Last Indicated Resolved Time COVID19 Pending 06/01/2020 06/01/2020 06/01/2020 9 :35 PM FOURTH MATE COVID19 Pending 09/28/2020 09/28/2020 09/28/2020 1 2:02 PM CDT COVID19 Pending 01/13/2022 01/13/2022 01/13/2022 9 :52 PM CDT Assessment Noted Time PHQ-9 Depression Total Score: 7 09/21/19 11 11:02 AM CDT documented as of this encounter Care Teams Fats And Oils Loader Relationship Specialty Start Date End Date Elsewhere, Pcp PCP - General Internal Medicine 02/01/23 documented as of this encounter
--- OUTSIDE RECORDS SUMMARY | 2023-12-07 15:47 | XMS_ITS | Encounter Summary ---
Author Organization [facility] Address [address] [place] [address] Care Team Providers Care Van Driver Name Role Phone Elsewhere, Pcp Primary Care Provider Unavailabl e Encounter Details Date Type Department Care Team (Late st Contact Info) Description 02/19/2015 Historical Ophthalmology RST OPH Raven Sher Social History Tobacco Use Types Packs/Day Years Used Date Smoking Tobacco: Never Assessed Sex and Gender Information Value Date Recorded Sex Assigned at Male 07/09/2018 2:54 PM DOOR TO DOOR LEAD GENERATION Gender Identity Male 07/09/2018 2:54 PM DOOR TO DOOR LEAD GENERATION Sexual Orientation Straight 07/09/2018 2: 54 PM DOOR TO DOOR LEAD GENERATION documented as of this encounter Progress Notes * Raven Sher, C.O.A. - 02/19/2015 4:37 PM CDT Eye Subsequent Visit HISTORY OF PRESENT ILLNESS Here for procedure. CDM Reports - EYESV Id: [id number] Status: Fnl documented in this encounter Plan of Treatment Not on file documented as of this encounter Visit Diagnoses Not on filedocumented in this encounter Additional Health Concerns Infection Onset Date Last Indicated Resolved Time COVID19 Pending 06/01/2020 06/01/2020 06/01/2020 9 :35 PM DOOR TO DOOR LEAD GENERATION COVID19 Pending 09/28/2020 09/28/2020 09/28/2020 1 2:02 PM CDT COVID19 Pending 01/13/2022 01/13/2022 01/13/2022 9 :52 PM CDT Assessment Noted Time PHQ-9 Depression Total Score: 7 09/21/19 11 11:02 AM CDT documented as of this encounter Care Teams Van Driver Relationship Specialty Start Date End Date Elsewhere, Pcp PCP - General Internal Medicine 02/01/23 documented as of this encounter
--- OUTSIDE RECORDS SUMMARY | 2023-12-07 15:47 | XMS_ITS | Encounter Summary ---
Author Organization [facility] Address [address] [place] [address] Care Team Providers Care Yard Spotter Name Role Phone Elsewhere, Pcp Primary Care Provider Unavailabl e Encounter Details Date Type Department Care Team (Late st Contact Info) Description 10/15/2012 Historical Ophthalmology RST OPH Kenyon Lucas M.D. Social History Tobacco Use Types Packs/Day Years Used Date Smoking Tobacco: Never Assessed Sex and Gender Information Value Date Recorded Sex Assigned at Male 07/09/2018 2:54 PM SHARED SERVICES AND OUTSOURCING MANAGER Gender Identity Male 07/09/2018 2:54 PM SHARED SERVICES AND OUTSOURCING MANAGER Sexual Orientation Straight 07/09/2018 2: 54 PM SHARED SERVICES AND OUTSOURCING MANAGER documented as of this encounter Progress [...] no biopsy -09/03; mushroom-shaped lesion (pigmented base 13.8p47x6po with amelanotic apex; vascularization of apex without drusen or orange pigment; base 5mm from disc superonasally; Subretinal fluid surroundingbase; SD 360 degrees; invasion of choroidal mass into and under retina -US with wtbtdx-hz-mrk reflectivity and mushroom shape; extensive growth over [...] was discussed with the patient (or legal practice representative and others present during the discussion). [...] to continue with more Avastin left eye X9xibev apart with Dr. Medellin. Will do Avastin [...] This was discussed with thepatient (or legal practice representative and others present during discussion).. The patient understands and wishes to proceed. Discussed in detail lack of toxicity data, lack of approval for intraocular useand that there have been hundreds if not thousands treated since December 2004. Discussed possible systemic problems such as GI bleed, [place] and stroke. Plan to proceed with Avastin [...] on nose CDM Reports - EYEGEN Id: [id number] Status: Fnl documented in this encounter Plan of Treatment Not on file documented as of this encounter Visit Diagnoses Not on filedocumented in this encounter Additional Health Concerns Infection Onset Date Last Indicated Resolved Time COVID19 Pending 06/01/2020 06/01/2020 06/01/2020 9 :35 PM SHARED SERVICES AND OUTSOURCING MANAGER COVID19 Pending 09/28/2020 09/28/2020 09/28/2020 1 2:02 PM CDT COVID19 Pending 01/13/2022 01/13/2022 01/13/2022 9 :52 PM CDT Assessment Noted Time PHQ-9 Depression Total Score: 7 09/21/19 11 11:02 AM CDT documented as of this encounter Care Teams Yard Spotter Relationship Specialty Start Date End Date Elsewhere, Pcp PCP - General Internal Medicine 02/01/23 documented as of this encounter
--- OUTSIDE RECORDS SUMMARY | 2023-12-07 15:47 | XMS_ITS | Encounter Summary ---
Author Organization [facility] Address [address] [place] [address] Care Team Providers Care House Detective Name Role Phone Elsewhere, Pcp Primary Care Provider Unavailabl e Encounter Details Date Type Department Care Team (Late st Contact Info) Description 09/01/2014 Historical Ophthalmology RST OPH Kenyon Lucas M.D. 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 Medellin. Will do Avastin [...] This was discussed with thepatient (or legal senior customer service representative and others present during discussion).. The patient understands and wishes to proceed. Discussed in detail lack of toxicity data, lack of approval for intraocular useand that there have been hundreds if not thousands treated since December 2004. Discussed possible systemic problems such as GI bleed, [place] and stroke. Plan to proceed with Avastin [...] right eye CDM Reports - EYEGEN Id: [id number] Status: Fnl documented in this encounter Plan of Treatment Not on file documented as of this encounter Visit Diagnoses Not on filedocumented in this encounter Additional Health Concerns Infection Onset Date Last Indicated Resolved Time COVID19 Pending 06/01/2020 06/01/2020 06/01/2020 9 :35 PM PAVER OPERATOR COVID19 Pending 09/28/2020 09/28/2020 09/28/2020 1 2:02 PM CDT COVID19 Pending 01/13/2022 01/13/2022 01/13/2022 9 :52 PM CDT Assessment Noted Time PHQ-9 Depression Total Score: 7 09/21/19 11 11:02 AM CDT documented as of this encounter Care Teams House Detective Relationship Specialty Start Date End Date Elsewhere, Pcp PCP - General Internal Medicine 02/01/23 documented as of this encounter
--- OUTSIDE RECORDS SUMMARY | 2023-12-07 15:47 | XMS_ITS | Encounter Summary ---
Author Organization [facility] Address [address] [place] [address] Care Team Providers Care Ice Cream Dispenser Name Role Phone Elsewhere, Pcp Primary Care Provider Unavailabl e Encounter Details Date Type Department Care Team (Late st Contact Info) Description 12/01/2011 Historical Ophthalmology RST OPH Kenyon Lucas M.D. Social History Tobacco Use Types Packs/Day Years Used Date Smoking Tobacco: Never Assessed Sex and Gender Information Value Date Recorded Sex Assigned at Male 07/09/2018 2:54 PM AQUATIC HABITAT BIOLOGIST Gender Identity Male 07/09/2018 2:54 PM AQUATIC HABITAT BIOLOGIST Sexual Orientation Straight 07/09/2018 2: 54 PM AQUATIC HABITAT BIOLOGIST documented as of this encounter Progress Notes * Kenyon Lucas M.D. - 12/01/2011 9:43 AM CDT Eye Postoperative MULTI-VISIT DOCUMENT This document contains multiple patient visits and is available for review in Document Viewer. CDM Reports - EYEPO Id: [id number] Status: Fnl documented in this encounter Plan of Treatment Not on file documented as of this encounter Visit Diagnoses Not on filedocumented in this encounter Additional Health Concerns Infection Onset Date Last Indicated Resolved Time COVID19 Pending 06/01/2020 06/01/2020 06/01/2020 9 :35 PM AQUATIC HABITAT BIOLOGIST COVID19 Pending 09/28/2020 09/28/2020 09/28/2020 1 2:02 PM CDT COVID19 Pending 01/13/2022 01/13/2022 01/13/2022 9 :52 PM CDT Assessment Noted Time PHQ-9 Depression Total Score: 7 09/21/19 11 11:02 AM CDT documented as of this encounter Care Teams Ice Cream Dispenser Relationship Specialty Start Date End Date Elsewhere, Pcp PCP - General Internal Medicine 02/01/23 documented as of this encounter
--- OUTSIDE RECORDS SUMMARY | 2023-12-07 15:48 | XMS_ITS | Encounter Summary ---
Author Organization [facility] Address [address] [place] [address] Care Team Providers Care Biological Engineer Name Role Phone Elsewhere, Pcp Primary Care Provider Unavailabl e Encounter Details Date Type Department Care Team (Late st Contact Info) Description 01/27/2011 Historical Ophthalmology RST OPH Kenyon Lucas M.D. 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 -US with azvsfe-nn-pgb reflectivity and mushroom shape; extensive growth over [...] #7 Rosacea CDM Reports - EYEGEN Id: [id number] Status: Fnl documented in this encounter Plan of Treatment Not on file documented as of this encounter Visit Diagnoses Not on filedocumented in this encounter Additional Health Concerns Infection Onset Date Last Indicated Resolved Time COVID19 Pending 06/01/2020 06/01/2020 06/01/2020 9 :35 PM CHIEF EMBALMER COVID19 Pending 09/28/2020 09/28/2020 09/28/2020 1 2:02 PM CDT COVID19 Pending 01/13/2022 01/13/2022 01/13/2022 9 :52 PM CDT Assessment Noted Time PHQ-9 Depression Total Score: 7 09/21/19 11 11:02 AM CDT documented as of this encounter Care Teams Biological Engineer Relationship Specialty Start Date End Date Elsewhere, Pcp PCP - General Internal Medicine 02/01/23 documented as of this encounter
--- OUTSIDE RECORDS SUMMARY | 2023-12-07 15:48 | XMS_ITS | Encounter Summary ---
Author Organization [facility] Address [address] [place] [address] Care Team Providers Care Early Learning Teacher Name Role Phone Elsewhere, Pcp Primary Care Provider Unavailabl e Encounter Details Date Type Department Care Team (Late st Contact Info) Description 09/28/2011 Historical Ophthalmology RST OPH Kenyon Lucas M.D. 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 [...] right eye CDM Reports - EYEGEN Id: [id number] Status: Fnl documented in this encounter Plan of Treatment Not on file documented as of this encounter Visit Diagnoses Not on filedocumented in this encounter Additional Health Concerns Infection Onset Date Last Indicated Resolved Time COVID19 Pending 06/01/2020 06/01/2020 06/01/2020 9 :35 PM BOTTLE CARRIER COVID19 Pending 09/28/2020 09/28/2020 09/28/2020 1 2:02 PM CDT COVID19 Pending 01/13/2022 01/13/2022 01/13/2022 9 :52 PM CDT Assessment Noted Time PHQ-9 Depression Total Score: 7 09/21/19 11 11:02 AM CDT documented as of this encounter Care Teams Early Learning Teacher Relationship Specialty Start Date End Date Elsewhere, Pcp PCP - General Internal Medicine 02/01/23 documented as of this encounter
--- OUTSIDE RECORDS SUMMARY | 2023-12-07 15:48 | XMS_ITS | Encounter Summary ---
Author Organization [facility] Address [address] [place] [address] Care Team Providers Care Aix Architect Name Role Phone Elsewhere, Pcp Primary Care Provider Unavailabl e Encounter Details Date Type Department Care Team (Late st Contact Info) Description 09/16/2010 Historical Ophthalmology RST OPH Kenyon Lucas M.D. Social History Tobacco Use Types Packs/Day Years Used Date Smoking Tobacco: Never Assessed Sex and Gender Information Value Date Recorded Sex Assigned at Male 07/09/2018 2:54 PM UNIVERSITY MANAGER Gender Identity Male 07/09/2018 2:54 PM UNIVERSITY MANAGER Sexual Orientation Straight 07/09/2018 2: 54 PM UNIVERSITY MANAGER documented as of this encounter Progress [...] T3a N0MX 09/03; mushroom-shaped lesion (pigmented base 13.2b47o2df with amelanotic apex; vascularization of apex without drusen or orange pigment; base 5mm from disc superonasally; Subretinal fluid surroundingbase; SD 360 degrees; 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 [...] #7 Rosacea CDM Reports - EYEGEN Id: [id number] Status: Fnl documented in this encounter Plan of Treatment Not on file documented as of this encounter Visit Diagnoses Not on filedocumented in this encounter Additional Health Concerns Infection Onset Date Last Indicated Resolved Time COVID19 Pending 06/01/2020 06/01/2020 06/01/2020 9 :35 PM UNIVERSITY MANAGER COVID19 Pending 09/28/2020 09/28/2020 09/28/2020 1 2:02 PM CDT COVID19 Pending 01/13/2022 01/13/2022 01/13/2022 9 :52 PM CDT documented as of this encounter Care Teams Aix Architect Relationship Specialty Start Date End Date Elsewhere, Pcp PCP - General Internal Medicine 02/01/23 documented as of this encounter
--- OUTSIDE RECORDS SUMMARY | 2023-12-07 15:48 | XMS_ITS | Continuity of Care Document ---
Author Organization [facility] Address [address] [place] [address] Phone Care Team Providers Care End Worker Name Role Phone Christiano KILPATRICK, [place] Unavailable [...] Flag Status Comments Panel Description: Transfora kenny Vkelzjx-Frhmze-Kdfbazcqhrvfob (TRANSLUMNONPART) Unknown TRANSLUMNONPART 21 17:25:19 (See Attached Document) Unknown (See Attached Document) Panel Description: Transfora kenny Crphdjj-Fjmmru-Aumwygooyhfzre (TRANSLUMNONPART) Unknown Image Transforaminal Tusulnl-Gssehu-M onparti Advance Directives Directive Yes / No Effective Date File Name No Information Encounters Encounter Description Practice Location Reason(s) For Visit Diagnoses Date Provider Providers Copied on Encounter Office/Outpat ient Visit,New, Mod [facility], [address], [place], [place], [id number], [place] tel:[phone] [facility] No Information 1 Christiano Bethea. [facility], [address] [place] [address], [address], [place], [place], [id number] , [place]. tel:[phone] Referring Provider: [place], [facility] [address], [address], [place], [address] . tel:[phone] Office/outpat ient visit,est, low Z [facility], [address] [place], [place] [address], [address], [place] tel:[phone] [facility] No Information 8200 9 Christiano Bethea. [facility], [address] [place] [address], [address], [place], [place], [id number] , [place]. tel:[phone] Referring Provider: Matthew Veragra, [facility], [place], [address]. tel:[phone] Z [facility], [address] [place], [place] [address]ite [address] [place] [address], [address], [place] tel:[phone] [facility] No Information 3-200 8 [place]. [facility], [address] [place] [address], [address], [place], [id number] , [place]. tel:[phone] Referring Provider: Matthew Vergara, [address], [place], [address]. tel:[phone] Z [facility], [address], [facility], [place] tel:[phone] [employer] No Information 9-200 8 [place]. [facility], [address] [place] [address] [place] [address], [id number] , [place]. tel:[phone] Referring Provider: Matthew Vergara, [address], [place], [address]. tel:[phone] Z [facility], [address], [address], [place] tel:[phone] [facility] No Information 6-200 8 [place]. [facility], [address] [place] [address], [address], [place], [id number] , [place]. tel:[phone] Referring Provider: Matthew Vergara [facility] [address] [facility], [place], [address]. tel:[phone] Office/outpat ient visit,est, mod Z [facility], [address] [place], [place] [address]ite [address] [place] [address], [address], [place] tel:[phone] [employer] No Information 8-[address] [place]. [facility], [address] [place] [address], [address], [place], [id number] , . tel:[phone] Referring Provider: Matthew Vergara, [facility] [address], [place], [address]. tel:[phone] Office/outpat ient visit,new, mod Z [facility], [address] [facility] [address], [place], [address], [place] tel:[phone] [facility] No Information 6200 7 Christiano Bethea. [facility], [address] [place] [address], [address], [place], [place], [id number] , [place]. tel:[phone] Referring Provider: Matthew Vergara, [facility] [address], [place], [address]. tel:[phone] Family History Family Member Type Diagnosis Age At Onset No Information Payers Payer name Insurance type Covered republican ID Jj mcgregor(s) Medicare MB [id number] [employer] [id number] Social History Type Description Quantity Date Captured [...]
--- OUTSIDE RECORDS SUMMARY | 2023-12-07 15:48 | XMS_ITS | Encounter Summary ---
Author Organization [facility] Address [address] [place] [address] Care Team Providers Care Public Health Dentist Name Role Phone Elsewhere, Pcp Primary Care Provider Unavailabl e Encounter Details Date Type Department Care Team (Late st Contact Info) Description 09/17/2010 Historical Ophthalmology RST OPH Raeann Harding, C.O.A. Social History Tobacco Use Types Packs/Day Years Used Date Smoking Tobacco: Never Assessed Sex and Gender Information Value Date Recorded Sex Assigned at Male 07/09/2018 2:54 PM ELEMENT WINDING MACHINE TENDER Gender Identity Male 07/09/2018 2:54 PM ELEMENT WINDING MACHINE TENDER Sexual Orientation Straight 07/09/2018 2: 54 PM ELEMENT WINDING MACHINE TENDER documented as of this encounter Progress Notes [...] #1 Presbyopia CDM Reports - EYESV Id: [id number] Status: Fnl documented in this encounter Plan of Treatment Not on file documented as of this encounter Visit Diagnoses Not on filedocumented in this encounter Additional Health Concerns Infection Onset Date Last Indicated Resolved Time COVID19 Pending 06/01/2020 06/01/2020 06/01/2020 9 :35 PM ELEMENT WINDING MACHINE TENDER COVID19 Pending 09/28/2020 09/28/2020 09/28/2020 1 2:02 PM CDT COVID19 Pending 01/13/2022 01/13/2022 01/13/2022 9 :52 PM CDT documented as of this encounter Care Teams Public Health Dentist Relationship Specialty Start Date End Date Elsewhere, Pcp PCP - General Internal Medicine 02/01/23 documented as of this encounter
--- OUTSIDE RECORDS SUMMARY | 2023-12-07 15:48 | XMS_ITS | Encounter Summary ---
Author Organization [facility] Address [address] [place] [address] Care Team Providers Care Wet Finisher Wool Name Role Phone Elsewhere, Pcp Primary Care Provider Unavailabl e Encounter Details Date Type Department Care Team (Late st Contact Info) Description 10/28/2010 Historical Ophthalmology RST OPH Kenyon Lucas M.D. Social History Tobacco Use Types Packs/Day Years Used Date Smoking Tobacco: Never Assessed Sex and Gender Information Value Date Recorded Sex Assigned at Male 07/09/2018 2:54 PM TRANSPORT MEDIC Gender Identity Male 07/09/2018 2:54 PM TRANSPORT MEDIC Sexual Orientation Straight 07/09/2018 2: 54 PM TRANSPORT MEDIC documented as of this encounter Progress Notes * Kenyon Lucas M.D. - 10/28/2010 3:05 PM CDT Eye Postoperative MULTI-VISIT DOCUMENT This document contains multiple patient visits and is available for review in Document Viewer. CDM Reports - EYEPO Id: [id number] Status: Fnl documented in this encounter Plan of Treatment Not on file documented as of this encounter Visit Diagnoses Not on filedocumented in this encounter Additional Health Concerns Infection Onset Date Last Indicated Resolved Time COVID19 Pending 06/01/2020 06/01/2020 06/01/2020 9 :35 PM TRANSPORT MEDIC COVID19 Pending 09/28/2020 09/28/2020 09/28/2020 1 2:02 PM CDT COVID19 Pending 01/13/2022 01/13/2022 01/13/2022 9 :52 PM CDT Assessment Noted Time PHQ-9 Depression Total Score: 7 09/21/19 11 11:02 AM CDT documented as of this encounter Care Teams Wet Finisher Wool Relationship Specialty Start Date End Date Elsewhere, Pcp PCP - General Internal Medicine 02/01/23 documented as of this encounter
[2023-12-07 15:50] LABS: Slide Review Reflex No
[2023-12-07 16:08] LABS: Troponin I* < 0.01 ng/mL (0.01-0.04)
== END 2023-12-07 18:01 | disposition home or self-care (01) ==
PROVIDERS: Emergency Provider Emergency Medicine; PCP Student in an Organized Health Care Education/Training Program
DX: R42 Dizziness and giddiness (principal)
CPT/HCPCS: 36415; 80048; 83605; 84484; 85025; 93005; 96374; 96376; 99284; A9270; J2405; J7030

== ENCOUNTER 2024-05-10 13:38 | Outpatient (CLI) | payer MEDICARE, OTHER, SELFPAY ==
--- OUTSIDE RECORDS SUMMARY | 2024-05-10 13:44 | XMS_ITS | Clinical Summary ---
Author Organization [facility] Address [place], [place] [address] Care Team Providers Care Encoding Machine Operator Name Role Phone Raza Marks MD Unavailable [...] daily with a meal. 0 07/01/2021 Active albuterol HFA (ProAir HFA) 90 mcg/actuation inhalerIndications :Bronchitis with bronchospasm Inhale 1-2 Puffs by mouth every 6 hours if needed for Shortness of Breath 1st choice. 1 Each 07/03/2023 Active triamcinolone 0.1 % ointmentIndication s:Pruritus Apply to affected areas on the arms, legs, and trunk. 453.6 g 2 07/18/2023 Active omeprazole (PRILOSEC) 20 mg Delayed-Release capsuleIndications [...] for Itching. 222 mL 3 08/22/2023 Active CPAPIndications:OS A (obstructive sleep apnea) CPAP machine for home use at pressure 5-15 cmw, nasal mask x1/3month with nasal cushion x2/mo 1 Each 11 11/27/2023 Active allopurinoL (ZYLOPRIM) 100 mg tabletIndications: Gout of big toe TAKE 3 TABLETS(300 MG) BY MOUTH EVERY DAY 270 Tablet 1 01/12/2024 Active hydrOXYzine HCL (ATARAX) 25 mg tabletIndications: Pruritus Take 1 Tablet (25 mg) by mouth at bedtime. 90 Tablet 01/13/2024 Active indomethacin (INDOCIN) 50 mg capsuleIndications :Gout, unspecified cause, unspecified chronicity, unspecified site TAKE 1 CAPSULE(50 MG) BY MOUTH EVERY 6 HOURS NEEDED FOR GOUT PAIN 30 Capsule 01/16/2024 Active oxybutynin XL (DITROPAN XL) 10 mg CR tabletIndications: Overactive bladder TAKE 2 TABLETS BY MOUTH DAILY 180 Tablet 01/30/2024 Active betamethasone dipropionate 0.05 % creamIndications:I nsect bite of foot, unspecified laterality, initial encounter Apply topically to affected area(s) two times daily. 15 g 02/29/2024 Active busPIRone (BUSPAR) 15 mg tabletIndications: Anxiety state TAKE 1 TABLET(15 MG) BY MOUTH TWICE DAILY 180 Tablet 03/30/2024 Active dextroamphetamine- amphetamine (Adderall XR) 30 mg Extended-Release capsuleIndications :Attention deficit disorder (ADD) without hyperactivity Take 1 Capsule (30 mg) by mouth once daily in the morning. 30 Capsule 04/09/2024 Active dextroamphetamine- amphetamine (AdderalL) 20 mg tabletIndications: Attention deficit disorder (ADD) without hyperactivity Take 1 Tablet (20 mg) by mouth once daily. 30 Tablet 04/09/2024 Active zolpidem (AMBIEN) 10 mg tabletIndications: Other insomnia TAKE 1 TABLET BY MOUTH EVERY DAY AT BEDTIME NEEDED FOR SLEEP 90 Tablet 04/22/2024 Active sertraline (ZOLOFT) 50 mg tabletIndications: Anxiety state,Depression, recurrent (HC) TAKE ONE TABLET EVERY MORNING 90 Tablet 04/27/2024 Active sertraline (ZOLOFT) 50 mg tabletIndications: Anxiety state,Depression, recurrent (HC) TAKE ONE TABLET EVERY MORNING 90 Tablet 1 10/20/2023 04/27/20 24 Discontinued zolpidem (AMBIEN) 10 mg tabletIndications: Other insomnia TAKE 1 TABLET BY MOUTH EVERY DAY AT BEDTIME NEEDED FOR SLEEP 90 Tablet 01/30/2024 04/22/20 24 Discontinued Active Problems Problem Noted Date Diagnosed Date MGUS (monoclonal gammopathy of unknown significa nce) 08/01/2023 Disorder of joint prosthesis 02/15/2023 Overactive bladder 01/23/2023 Gout 01/23/2023 Fusion of spine, lumbar region 01/23/2023 Cervical radiculopathy 01/23/2023 Status post right shoulder hemiarthroplasty 11/24 Right shoulder pain 12/09/2022 Status post shoulder replacement, right 12/10/19 23 ARLENE 11/23/2021 AHi- 31 03/07/2022 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 Prostate CA 10/05/2010 Overview (08/01/2022): Patient following with serial PSAs - being monitored by Urology. Being followed at [facility]: S/P recent biopsy; quarterly PSA and annual Bx. 01/08/2012 Last appointment on 09/01/2021. Repeat prostate biopsy in 18 to 24 months. Gastroesophageal reflux disease 09/17/2010 Peyronie disease 08/23/2010 Contracture of palmar fascia 07/07/2010 Overview (07/07/2010): Bilateral Headache(784.0) 07/07/2010 Memory loss 07/07/2010 Overview (07/07/2010): Mom with Dementia. 07/07/2010 Unspecified constipation 07/07/2010 Hypertrophy of prostate with urinary obstruction and other lower urinary tract symptoms (LUTS) 07/07/2010 Fatigue 07/07/2010 Inguinal hernia without ment ion of obstruction or gangrene, unilateral or unspecified, (not specified as recurrent) 02/25/2009 Overview (02/25/2009): New (asymptomatic) Left Inguinal Hernia Mixed hyperlipidemia 11/05/2008 Overview (11/05/2008): Suggest recheck fall 2008 Benign neoplasm of colon 08/28/2008 Overview (07/25/2019): Colonoscopy 08/2008 polyp repeat in 5 years [...] lef t eye, unspecified eyelid 07/27/2020 10/11/2021 Overview (04/20/2021): Added automatically from request for surgery [id number] Controlled substance agreement signed 10/20/2016 01/02/2019 Overview (10/20/2016): Signed: 10/05/2011 Dr. Alan Singh / psychiatry Lumbar disc herniation 11/05/201210/11 Arthritis of right shoulder region 2010 10/11/2021 Unspecified visual loss 07/07/201009/24 Overview (09/14/2010): Left; acute onset over past month. improved with eye drops. 08/02/2010 Possible Choroidal Melanoma; referred by Retinal specialist to [facility]. 09/14/2010 Encounters Date Type Department Care Team Description 05/10/2024 Refill [facility] [address] [place] [address] Cathleen Patel DO Refill Request (Tamsulosin) 05/09/2024 Telephone [facility] [address] [facility] [place], [place] [id number] Marva Bran, CHITRA Appointment 05/08/2024 1:00 PM STERILE PROCESSING TECHNOLOGIST Orders Only [facility] [address] [place] [address] Lab 05/08/2024 Travel 04/24/2024 Refill [facility] [address] [place] [address] Cathleen Patel, DO Refill Request (Sertraline) 04/21/2024 Refill [facility] [address] [place] [address] Cathleen Patel, DO Refill Request (Zolpidem) 04/11/2024 Telephone [facility] [address] [place] [address] Marva Bran, CORRECTIONAL COUNSELOR/CASE MANAGER Appointment 04/09/2024 Orders Only [facility] [address] [place] [phone] Laura Trimble MD Lab 04/09/2024 Refill [facility] [address] [place] [address] Cathleen Patel, DO Refill Request 04/09/2024 Refill [facility] [address] [place] [address] Cathleen Patel, DO Refill Request (Dextroamphetamine-am phetamine, Dextroamphetamine-amp hetamine) 03/26/2024 Refill [facility] [address] [place] [address] Cathleen Patel, DO Refill Request (Buspirone) 02/29/2024 7:45 AM CDT Office Visit [facility] [address] [place] [address] Vicki Villa PA Foot Problem (Both feet) 02/29/2024 Travel from Last 3 Months Immunizations Name [...] IIV3 (Age 65+ Years) Preserv Free 04/15/2019,04/10/2018 Turkmen Encephalitis 05/27/2019,04/25/2019 MMR 04/25/2019 Pneumococcal Poly,23-Valent (Pneumovax) 12/14/2017 Pneumococcal conj 13-Valent (Prevnar 13) 10/31/2016 Td (Age >=7 Years) 03/05/1998 Td, Preservative Free (age > = 7 Years) 05/02/2012,07/03/2007 Tdap 11/14/2013 Typhoid (injectable) 04/25/2019,05/05/2009 Typhoid Parenteral,Killed 05/05/2009 Zoster (Zostavax-ZVL, live) 12/30/2015, 6 Family History Medical History Relation Name Comments Heart Disease Brother 3 Mak stents 2006; [place] Heart Disease Father Benjie at 72 [...] 0 08/01/2023 Social Connections Answer Date Recorded Do you often feel lonely or isolated from those around you? 0 07/17/2023 Alcohol Use Answer Date Recorded [...] file 07/17/2023 Food Insecurity Answer Date Recorded Do you worry your food will run out before you are able to buy more? 1 07/17/2023 Transportation Needs Answer Date Record ed Does lack of transportation keep you from medica l appointments? 1 07/17/2023 Does lack of transportation keep you from work, meetings or getting things that you need? 1 07/17/2023 Housing Stability Answer Date Recorded What is your housing situation today? 1 07/17/2023 Sex and Gender Information Value Date Recorded Sex Assigned at Not on file Gender Identity Not on file Sexual Orientation Not on file Obstetrics History Last Filed Vital Signs Vital Sign Reading Time Taken Comments Blood Pressure 126/68 02/29/2024 7:47 AM CDT Pulse 61 02/29/2024 7:47 AM CDT Temperature 36.7 ??C (98 ??F) 10/24/2023 2:30 PM CDT Respiratory Rate 16 10/24/2023 2:30 PM CDT Oxygen Saturation 97% 02/29/2024 7:47 AM CDT Inhaled Oxygen Concentration - - Weight 91.1 kg (200 lb 14.4 oz) 02/29/2024 7:47 AM CDT Height 185.2 cm (6' 0.93) 11/27/2023 9:31 AM CD T Body Mass Index 26.56 11/27/2023 9:31 AM CDT Plan of Treatment Upcoming Encounters Date Type Department Care Team (Late st Contact Info) Description 05/15/2024 12:45 PM STERILE PROCESSING TECHNOLOGIST Office Visit [facility] [address] [place] [address] Marva Bran, CORRECTIONAL COUNSELOR/CASE MANAGER [address] [place] [address] Health Maintenance Due Date Last Done Comments Zoster (shingles) series for age 50+ (2 of 3) 02/24/2016 12/30/2015, 06/26/2015 Tetanus booster 11/15/2023 11/14/2013, 12/2011, 07/03/2007, Additional history exists COVID-19 vaccine series (2023- season) 2024 04/15/2023, 05/16/2022, 11/24/2021, Additional history exists Influenza for age 65+ [...] Completed 08/15/2022 Medical Devices Implanted Type Area Chief Dog License Inspector Device Identifier Shelf Expiration Date Model / Serial / Lot Jean Claude 4.0cmx5.5mm Pre-Cut - [id number] Implanted:Qty: 2 on 07/09/2007 at [facility] Spine Implants Spine SOFAMOR DANEK [id number]# / / [id number] one Canclls Crushed 30cc [[id number]] Implanted:Qty: 1 on 07/09/2007 at [facility] Explanted:at [facility] (Quantity not on file) Spine Allosource 04/22/2012 [id number]# / [id number] / [id number] one Canclls Crushed 30cc [[id number]] Implanted:Qty: 1 on 07/09/2007 at [facility] Explanted:at [facility] (Quantity not on file) Spine Allosource 04/30/2012 [id number]# / [id number] / Kit Infuse Sm - [id number] Implanted:Qty: 1 on 07/09/2007 at [facility] Spine SOFAMOR CARMENEK [id number]# / / [id number] I Screw Tsrh Tc 7.5x45mm Std Titnm - [id number] Implanted:Qty: 4 on 07/09/2007 at [facility] Spine [employer] PS MEDICAL [id number]# / / Cnnctr Tsrh Tc 5.5mm Sm Titnm - [id number] Implanted:Qty: 4 on 07/09/2007 at [facility] Spine [employer] PS MEDICAL [id number]# / / Capstone 14x26 - [id number] Implanted:Qty: 1 on 07/09/2007 at [facility] Spine SOFAMOR CARMENEK [id number]# / / [id number] Procedures Procedure Name Priority Date/Time Associated Diagnosis Comments CBC WITH AUTO DIFFERENTIAL Routine 05/08/2024 12:51 PM STERILE PROCESSING TECHNOLOGIST Pruritus COMP METABOLIC PANEL Routine 05/08/2024 12:51 PM STERILE PROCESSING TECHNOLOGIST Pruritus US ABD AORTA SCREENING Routine 08/15/2022 10:21 AM STERILE PROCESSING TECHNOLOGIST Screening for AAA (aortic abdominal aneurysm) LIPID PANEL W REFLEX MEASURED LDL Routine 06/29/2020 10:48 AM STERILE PROCESSING TECHNOLOGIST Mixed hyperlipidemia COLONOSCOPY SCREENING Routine 07/23/2019 8:42 AM STERILE PROCESSING TECHNOLOGIST Benign neoplasm of colon, unspecified part of colon ANTI HCV Routine 11/14/2013 2:42 PM CDT Need for hepatitis C screening test from Last 3 Months or Most Recently Relevant to Health Maintenance Results * CBC AND DIFFERENTIAL (05/08/2024 12:51 PM STERILE PROCESSING TECHNOLOGIST) WHITE BLOOD CELL COUNT 6.0 3.8 - 10.8 Thousand/u L [facility] RED BLOOD CELL COUNT 4.87 4.20 - 5.80 Million/uL [facility] HEMOGLOBIN 13.2 13.2 - 17.1 g/dL [facility] HEMATOCRIT 40.8 38.5 - 50.0 % [facility] MCV 83.8 80.0 - 100.0 fL [facility] MCH 27.1 27.0 - 33.0 pg [facility] MCHC 32.4 32.0 - 36.0 g/dL [facility] Comment: For adults, a slight decrease in the calculated MCHC value (in the range of 30 to 32 g/dL) is most likely not clinically significant; however, it should be interpreted with caution in correlation with other red cell parameters and the patient's clinical condition. RDW 13.0 11.0 - 15.0 % [facility] PLATELET COUNT 150 140 - 400 Thousand/u L [facility] MPV 11.0 7.5 - 12.5 fL [facility] ABSOLUTE NEUTROPHILS 3,588 1,500 - 7,800 cells/uL [facility] ABSOLUTE LYMPHOCYTES 1,536 850 - 3,900 cells/uL [facility] ABSOLUTE MONOCYTES 678 200 - 950 cells/uL [facility] ABSOLUTE EOSINOPHILS 180 15 - 500 cells/uL [facility] ABSOLUTE BASOPHILS 18 0 - 200 cells/uL [facility] NEUTROPHILS 59.8 % [facility] LYMPHOCYTES 25.6 % [facility] MONOCYTES 11.3 % [facility] EOSINOPHILS 3.0 % [facility] BASOPHILS 0.3 % [facility] Blood BLOOD SPECIMEN / Unknown 05/08/2024 12:51 PM STERILE PROCESSING TECHNOLOGIST 05/08/2024 12:52 PM STERILE PROCESSING TECHNOLOGIST Narrative [facility] - 05/09/2024 2:55 AM STERILE PROCESSING TECHNOLOGIST FASTING:NO FASTING: NO Laura Trimble MD HEMATOLOGY [facility] [address] [place] [address], [facility] [address] [place] [address] * COMP METABOLIC PANEL (05/08/2024 12:51 PM STERILE PROCESSING TECHNOLOGIST) Pathologist [facility] GLUCOSE 105 65 - 139 mg/dL [facility] Comment: ? Non-fasting reference interval UREA NITROGEN (BUN) 22 7 - 25 mg/dL [facility] CREATININE 1.18 0.70 - 1.28 mg/dL [facility] EGFR 66 > OR = 60 mL/min/1. 73m2 [facility] BUN/CREATININE RATIO SEE NOTE: (calc) [facility] Comment: ?? Not Reported: BUN and Creatinine are within ?? reference range. ? SODIUM 141 135 - 146 mmol/L [facility] POTASSIUM 4.2 3.5 - 5.3 mmol/L [facility] CHLORIDE 103 98 - 110 mmol/L [email or web address] CARBON DIOXIDE 31 20 - 32 mmol/L [facility] CALCIUM 9.4 8.6 - 10.3 mg/dL [facility] PROTEIN, TOTAL 6.4 6.1 - 8.1 g/dL [facility] ALBUMIN 4.0 3.6 - 5.1 g/dL [facility] GLOBULIN 2.4 1.9 - 3.7 g/dL (calc) [facility] ALBUMIN/GLOBULIN RATIO 1.7 1.0 - 2.5 (calc) [facility] BILIRUBIN, TOTAL 0.4 0.2 - 1.2 mg/dL [facility] ALKALINE PHOSPHATASE 67 35 - 144 U/L [facility] AST 19 10 - 35 U/L [facility] ALT 15 9 - 46 U/L [facility] Blood BLOOD SPECIMEN / Unknown 05/08/2024 12:51 PM STERILE PROCESSING TECHNOLOGIST 05/08/2024 12:52 PM STERILE PROCESSING TECHNOLOGIST Narrative [facility] - 05/09/2024 6:09 AM STERILE PROCESSING TECHNOLOGIST FASTING:NO FASTING: NO Laura Trimble MD CHEMISTRY [facility] [address] [place] [address], [facility] [address] [place] [address] * US ABD AORTA SCREENING [[id number]] (08/15/2022 10:21 AM STERILE PROCESSING TECHNOLOGIST) Anatomical Region Laterality Modality Abdomen, AORTA Ultrasound 08/15/2022 3:17 PM STERILE PROCESSING TECHNOLOGIST Narrative 08/15/2022 3:17 PM STERILE PROCESSING TECHNOLOGIST For Patients: ??As a result of the [...] W REFLEX MEASURED LDL (06/29/2020 10:48 AM STERILE PROCESSING TECHNOLOGIST) CHOLESTEROL,TOTAL 251(H) 100 - 199 mg/dL 06/29/2020 5:37 PM STERILE PROCESSING TECHNOLOGIST [facility] TRIGLYCERIDES 103 <150 mg/dL 06/29/2020 5:37 PM STERILE PROCESSING TECHNOLOGIST [facility] HDL CHOLESTEROL 59 >40 mg/dL 5:37 PM STERILE PROCESSING TECHNOLOGIST [facility] NON-HDL CHOLESTEROL 192(H) <145 mg/dl 06/29/2020 5:37 PM STERILE PROCESSING TECHNOLOGIST [facility] CHOL/HDL RATIO 4.25 <4.50 06/29/2020 5:37 PM STERILE PROCESSING TECHNOLOGIST [facility] LDL CHOLESTEROL 171(H) <=130 mg/dL 06/29/2020 5:37 PM STERILE PROCESSING TECHNOLOGIST [facility] PROVIDER ORDERED STATUS RANDOM 06/29/2020 5:37 PM STERILE PROCESSING TECHNOLOGIST [facility] Blood BLOOD SPECIMEN / Unknown Venipuncture / Unknown 06/29/2020 10:48 AM STERILE PROCESSING TECHNOLOGIST 06/29/2020 10:49 AM STERILE PROCESSING TECHNOLOGIST Teto Navarro MD CHEMISTRY [facility] [address] [place] [address], * COLONOSCOPY SCREENING (07/23/2019 8:42 AM STERILE PROCESSING TECHNOLOGIST) Teto Navarro MD GI PROCEDURE ORD * ANTI HCV [54033.2] (11/14/2013 2:42 PM CDT) HEPATITIS C ANTIBODY Non-Reacti ve Non-Reacti ve 11/14/2013 11:59 PM CDT [facility] Blood specimen (specimen) BLOOD SPECIMEN / Unknown Venipuncture / Unknown 11/14/2013 2:42 PM CDT 11/14/2013 2:42 PM CDT Narrative [facility] - 11/14/2013 11:59 PM CDT Antibodies to HCV not detected; does not exclude the possibility of exposure to HCV. Teto Navarro MD SEND OUTS [facility] [address] [place] [address], from Last 3 Months or Most Recently Relevant to Health Maintenance Advance Directives * Full Code (Latest Code Status on File) Date Activated Date Inactivated Comments 06/03/2014 7:55 AM 06/03/2014 12:08 PM * Full Code Date Activated Date Inactivated Comments 05/05/2014 10:40 AM 05/05/2014 3:08 PM Care Teams Encoding Machine Operator Relationship Specialty Start Date End Date Cathleen Patel DO [address] [place] [address] PCP - General Family Practice 02/10/22 Raza Marks MD [address] [place] [address] Ophthalmology Ophthalmology Surgery 06/28/11 River Darby MD [address] [place] [address] Gastroenterology Gastroenterology 06/28/11 Laura Tirmble MD [address] [place] [address] Medical Oncologist Hematology and Oncology 11/06/23 Marva Bran, CHITRA [address] [place] [address] Nurse Practitioner Hematology and Oncology 11/06/23
--- OUTSIDE RECORDS SUMMARY | 2024-05-10 13:44 | XMS_ITS | Clinical Summary ---
Author Organization [facility] Address [address] [place] [address] Care Team Providers Care Digital Media Specialist Name Role Phone Unavailable Primary Care Provider [...] Last Done Comments Hepatitis C Screening 1950 Tobacco Screening 1950 Annual Preventive Care Visit 1969 Hypertension Screening (#1) 1969 Imm-DTaP/Tdap/Td (1 - Tdap) 1970 CT Colonography 1996 Colonoscopy 1996 Colorectal Cancer Screening 1996 FIT/gFOBT 1996 Fecal DNA 1996 Flexible Sigmoidoscopy 1996 Imm-Zoster, Recombinant (1 of 2) 2001 Abdominal Aortic Aneurysm Screening 2016 Falls Prevention 2016 Imm-Pneumococcal 65+ (1 of 1 - PCV) 2016 Alcohol and Drug Screen 06/26/2023 Depression Annual Screen 06/26/2023 [id number] ( season) 2024 021, 08/11/2020 Imm-Influenza (#1) 2024 Lipid Screening 06/29/2025 06/29/2020 Insurance Payer Benefit Plan / Group Subscriber ID Effective Dates Phone Address Type [facility] COVID19 [facility] [employer] [employer] [employer] T[employer] [id number] 2020-Pres ent [address] [address] [place] [address] Other
--- OUTSIDE RECORDS SUMMARY | 2024-05-10 13:44 | XMS_ITS | Continuity of Care Document ---
Author Organization [facility] Address [address] [place] [address] Phone Care Team Providers Care Business Development Recruiter Name Role Phone Christiano KILPATRICK, [place] Unavailable [...] Flag Status Comments Panel Description: Transfora kenny Aqbenwl-Vzndne-Wslyvymvhuyxzf (TRANSLUMNONPART) Unknown TRANSLUMNONPART 21 17:25:19 (See Attached Document) Unknown (See Attached Document) Panel Description: Transfora kenny Metdqwa-Szpzte-Kswucjcwqzjiia (TRANSLUMNONPART) Unknown Image Transforaminal Bdtusfd-Ygpiaq-W onparti Advance Directives Directive Yes / No Effective Date File Name No Information Encounters Encounter Description Practice Location Reason(s) For Visit Diagnoses Date Provider Providers Copied on Encounter Office/Outpat ient Visit,New, Mod [facility], [address], [place], [place], [id number], [place] tel:[phone] [facility] No Information 1 Christiano Bethea. [facility] [place], [address] [place] [address], [address], [place], [place], [id number] , [place]. tel:[phone] Referring Provider: [place], [facility] [address], [address], [place], [address] . tel:[phone] Office/outpat ient visit,est, low Z [facility] [place], [address] [place], [place] [address], [place], [address], [place] tel:[phone] 0890 [facility] No Information 8200 9 Christiano Bethea. [facility] [place], [address] [place] [address], [address], [place], [place], [id number] , [place]. tel:[phone] Referring Provider: Matthew Vergara, [facility] [address] [facility], [place], [address]. tel:[phone] Z [facility], [address] [place], [place] [address] [place] [address], [address], [place] tel:[phone] 2660 [facility] No Information 3-200 8 [place]. [facility] [place], [address] [place] [address], [address], [place], [id number] , [place]. tel:[phone] Referring Provider: Matthew Vergara, [address], [place], [address]. tel:[phone] Z [facility] [place], [address], [facility], [place] tel:[phone] [employer] No Information 9-200 8 [place]. [facility] [place], [address] [place] [address] [place] [address], [id number] , [place]. tel:[phone] Referring Provider: Matthew Vergara, [address], [place], [address]. tel:[phone] Z [facility] [place], [address], [address], [place] tel:[phone] [facility] No Information 6-200 8 [place]. [facility] [place], [address] [place] [address], [address], [place], [id number] , [place]. tel:[phone] Referring Provider: Matthew Vergara [facility] [address] [facility], [place], [address]. tel:[phone] Office/outpat ient visit,est, mod Z [facility], [address] [place], [place] [address] [place] [address], [address], [place] tel:[phone] [email or web address] No Information 8-200 8 [place]. [facility] [place], [address] [place] [address], [address], [place], [id number] , . tel:[phone] Referring Provider: [facility], [facility] [address], [place], [address]. tel:[phone] Office/outpat ient visit,new, mod Z [facility], [address] [facility] [address], [place], [address], [place] tel:[phone] 6340 [facility] No Information 6200 7 Christiano Bethea. [facility], [address] [place] [address], [address], [place], [place], [id number] , [place]. tel:[phone] Referring Provider: Matthew Vergara, [facility] [address], [place], [address]. tel:[phone] Family History Family Member Type Diagnosis Age At Onset No Information Payers Payer name Insurance type Covered constitution party ID Jj mcgregor(s) Medicare MB [id number] [employer] [id number] Social History Type Description Quantity Date Captured [...]
--- OUTSIDE RECORDS SUMMARY | 2024-05-10 13:45 | XMS_ITS | Encounter Summary ---
Author Organization [facility] Address [address] [place] [address] Care Team Providers Care Feed Mixer Helper Name Role Phone Elsewhere, Pcp Primary Care Provider Unavailabl e Encounter Details Date Type Department Care Team (Late st Contact Info) Description 10/15/2012 Historical Ophthalmology RST OPH Kenyon Lucas M.D. Social History Tobacco Use Types Packs/Day Years Used Date Smoking Tobacco: Never Assessed Sex and Gender Information Value Date Recorded Sex Assigned at Male 07/09/2018 2:54 PM TIME PIECE REPAIRER Legal Sex Male 9:06 AM TIME PIECE REPAIRER Gender Identity Male 07/09/2018 2:54 PM TIME PIECE REPAIRER Sexual Orientation Straight 07/09/2018 2: 54 PM TIME PIECE REPAIRER documented as of this encounter Progress Notes [...] no biopsy -09/03; mushroom-shaped lesion (pigmented base 13.7x77q1qw with amelanotic apex; vascularization of apex without drusen or orange pigment; base 5mm from disc superonasally; Subretinal fluid surroundingbase; SD 360 degrees; invasion of choroidal mass into and under retina -US with oiaeqs-wl-hrs reflectivity and mushroom shape; extensive growth over [...] was discussed with the patient (or legal territory sales representative and others present during the [...] to continue with more Avastin left eye [id number] apart with Dr. Medellin. Will do Avastin [...] This was discussed with thepatient (or legal territory sales representative and others present during discussion).. [...] on nose CDM Reports - EYEGEN Id: [id number] Status: Fnl documented in this encounter Plan of Treatment Not on file documented as of this encounter Visit Diagnoses Not on filedocumented in this encounter Additional Health Concerns Infection Onset Date Last Indicated Resolved Time COVID19 Pending 06/01/2020 06/01/2020 06/01/2020 9 :35 PM TIME PIECE REPAIRER COVID19 Pending 09/28/2020 09/28/2020 09/28/2020 1 2:02 PM CDT COVID19 Pending 01/13/2022 01/13/2022 01/13/2022 9 :52 PM CDT Assessment Noted Time PHQ-9 Depression Total Score: 7 09/21/19 11 11:02 AM CDT documented as of this encounter Care Teams Feed Mixer Helper Relationship Specialty Start Date End Date Elsewhere, Pcp PCP - General Internal Medicine 02/01/23 documented as of this encounter
--- OUTSIDE RECORDS SUMMARY | 2024-05-10 13:45 | XMS_ITS | Encounter Summary ---
Author Organization [facility] Address [address] [place] [address] Care Team Providers Care Document Preparer Microfilming Name Role Phone Elsewhere, Pcp Primary Care Provider Unavailabl e Encounter Details Date Type Department Care Team (Late st Contact Info) Description 01/30/2013 Historical Ophthalmology RST OPH Kenyon Lucas M.D. Social History Tobacco Use Types Packs/Day Years Used Date Smoking Tobacco: Never Assessed Sex and Gender Information Value Date Recorded Sex Assigned at Male 07/09/2018 2:54 PM HEAD MILLER Legal Sex Male 9:06 AM HEAD MILLER Gender Identity Male 07/09/2018 2:54 PM HEAD MILLER Sexual Orientation Straight 07/09/2018 2: 54 PM HEAD MILLER documented as of this encounter Progress Notes * Kenyon Lucas M.D. - 01/30/2013 1:22 PM CDT Eye General CHIEF COMPLAINT Choroidal lesion, left eye, medium sized melanoma HISTORY OF PRESENT ILLNESS 62 year old male here for follow up on Choroidal lesion, left eye, medium sized melanoma . He has Neovascular glaucoma, left eye sp avastin last injection/2012 in [place], Cataract, both eyes left eye,Choroidal nevus, left eye, vision black in left eye, worse then last visit. Patient denies ocularpain. Floaters alone; right eye; x several years; on and off. Denies flashes of light. ANALIA - pt states that he thinks the vision left eye greatly deteriorated more ~2 months ago. Has been getting Avastin to left eye with Dr. Medellin in [place], [place], last left Avastin January 02, 2013 [...] left eye 09/03; mushroom-shaped lesion (pigmented base 13.8q78v9ur with amelanotic apex; vascularization of apex without drusen or orange pigment; base 5mm from disc superonasally; Subretinal fluid surroundingbase; SD 360 degrees; invasion of choroidal mass into and under retina -US with efwmfj-zo-zte reflectivity and mushroom shape; extensive growth over [...] radiation; vitreous biopsy left eye on the 16; Risks and benefits of surgery including risks [...] was discussed with the patient (or legal associate sales representative and others present during the [...] to continue with more Avastin left eye U0sfini apart with Dr. Medellin. Will do Avastin [...] This was discussed with thepatient (or legal associate sales representative and others present during discussion).. [...] right eye CDM Reports - EYEGEN Id: [id number] Status: Fnl documented in this encounter Plan of Treatment Not on file documented as of this encounter Visit Diagnoses Not on filedocumented in this encounter Additional Health Concerns Infection Onset Date Last Indicated Resolved Time COVID19 Pending 06/01/2020 06/01/2020 06/01/2020 9 :35 PM HEAD MILLER COVID19 Pending 09/28/2020 09/28/2020 09/28/2020 1 2:02 PM CDT COVID19 Pending 01/13/2022 01/13/2022 01/13/2022 9 :52 PM CDT Assessment Noted Time PHQ-9 Depression Total Score: 7 09/21/19 11 11:02 AM CDT documented as of this encounter Care Teams Document Preparer Microfilming Relationship Specialty Start Date End Date Elsewhere, Pcp PCP - General Internal Medicine 02/01/23 documented as of this encounter
--- OUTSIDE RECORDS SUMMARY | 2024-05-10 13:45 | XMS_ITS | Encounter Summary ---
Author Organization [facility] Address [address] [place] [address] Care Team Providers Care Orchid Hand Name Role Phone Elsewhere, Pcp Primary Care Provider Unavailabl e Encounter Details Date Type Department Care Team (Late st Contact Info) Description 09/16/2010 Historical Ophthalmology RST OPH Kenyon Lucas M.D. Social History Tobacco Use Types Packs/Day Years Used Date Smoking Tobacco: Never Assessed Sex and Gender Information Value Date Recorded Sex Assigned at Male 07/09/2018 2:54 PM HEAD OF SCIENCE Legal Sex Male 9:06 AM HEAD OF SCIENCE Gender Identity Male 07/09/2018 2:54 PM HEAD OF SCIENCE Sexual Orientation Straight 07/09/2018 2: 54 PM HEAD OF SCIENCE documented as of this encounter Progress Notes [...] T3a N0MX 09/03; mushroom-shaped lesion (pigmented base 13.4w70p5xe with amelanotic apex; vascularization of apex without drusen or orange pigment; base 5mm from disc superonasally; Subretinal fluid surroundingbase; SD 360 degrees; invasion of choroidal mass into and under retina -US with fnhodq-zb-xdp reflectivity and mushroom shape; extensive growth over [...] was discussed with the patient (or legal physician relations representative and others present during the discussion). [...] #7 Rosacea CDM Reports - EYEGEN Id: [id number] Status: Fnl documented in this encounter Plan of Treatment Not on file documented as of this encounter Visit Diagnoses Not on filedocumented in this encounter Additional Health Concerns Infection Onset Date Last Indicated Resolved Time COVID19 Pending 06/01/2020 06/01/2020 06/01/2020 9 :35 PM HEAD OF SCIENCE COVID19 Pending 09/28/2020 09/28/2020 09/28/2020 1 2:02 PM CDT COVID19 Pending 01/13/2022 01/13/2022 01/13/2022 9 :52 PM CDT documented as of this encounter Care Teams Orchid Hand Relationship Specialty Start Date End Date Elsewhere, Pcp PCP - General Internal Medicine 02/01/23 documented as of this encounter
--- OUTSIDE RECORDS SUMMARY | 2024-05-10 13:45 | XMS_ITS | Encounter Summary ---
Author Organization [facility] Address [address] [place] [address] Care Team Providers Care Mine Environmental Engineer Name Role Phone Elsewhere, Pcp Primary Care Provider Unavailabl e Encounter Details Date Type Department Care Team (Late st Contact Info) Description 06/14/2013 Historical Ophthalmology RST OPH Kenyon Lucas M.D. Social History Tobacco Use Types Packs/Day Years Used Date Smoking Tobacco: Never Assessed Sex and Gender Information Value Date Recorded Sex Assigned at Male 07/09/2018 2:54 PM ELL TEACHER Legal Sex Male 9:06 AM ELL TEACHER Gender Identity Male 07/09/2018 2:54 PM ELL TEACHER Sexual Orientation Straight 07/09/2018 2: 54 PM ELL TEACHER documented as of this encounter Progress Notes [...] left eye 09/03; mushroom-shaped lesion (pigmented base 13.3h33r3hk with amelanotic apex; vascularization of apex without drusen or orange pigment; base 5mm from disc superonasally; Subretinal fluid surroundingbase; SD 360 degrees; invasion of choroidal mass into and under retina -US with nlavux-ml-ivk reflectivity and mushroom shape; extensive growth over [...] was discussed with the patient (or legal sales representative electric service and others present during the discussion). The [...] to continue with more Avastin left eye A1zvofh apart with Dr. Medellin. Will do Avastin [...] This was discussed with thepatient (or legal sales representative electric service and others present during discussion).. The patient understands and wishes to proceed. Discussed in detail lack of toxicity data, lack of approval for intraocular useand that there have been hundreds if not thousands treated since December 2004. Discussed possible systemic problems such as GI bleed, [place] and stroke. Plan to proceed with Avastin [...] right eye CDM Reports - EYEGEN Id: [id number] Status: Fnl documented in this encounter Plan of Treatment Not on file documented as of this encounter Visit Diagnoses Not on filedocumented in this encounter Additional Health Concerns Infection Onset Date Last Indicated Resolved Time COVID19 Pending 06/01/2020 06/01/2020 06/01/2020 9 :35 PM ELL TEACHER COVID19 Pending 09/28/2020 09/28/2020 09/28/2020 1 2:02 PM CDT COVID19 Pending 01/13/2022 01/13/2022 01/13/2022 9 :52 PM CDT Assessment Noted Time PHQ-9 Depression Total Score: 7 09/21/19 11 11:02 AM CDT documented as of this encounter Care Teams Mine Environmental Engineer Relationship Specialty Start Date End Date Elsewhere, Pcp PCP - General Internal Medicine 02/01/23 documented as of this encounter
--- OUTSIDE RECORDS SUMMARY | 2024-05-10 13:45 | XMS_ITS ---
Author Organization [facility] Address [address] [place] [address] Care Team Providers Care Lunch Truck Driver Name Role Phone Unavailable Unavailable Unavailable Surgery Details Not on file Complications Check Surgery Details section. Procedure Estimated Blood Loss Check Surgery Details section. Procedure Findings Check Surgery Details section. Procedure Specimens Taken Check Surgery Details section.
--- OUTSIDE RECORDS SUMMARY | 2024-05-10 13:45 | XMS_ITS | Clinical Summary ---
Author Organization [facility] Address [address] [place] [address] Care Team Providers Care Pv Installer Tech Name Role Phone Elsewhere, Pcp Primary Care Provider Unavailabl e Source Comments Patient records contain information from all sites at [facility]. For routine questions regarding patient records, call [phone] during business hours, M-F 8:00 AM - 5:00 PM Central Time. Record requests for emergency care only can be directed to [phone] at any time.[facility] Allergies No known active allergies Medications * This document contains information received from the source organization and may not represent a complete record from that organization. aspirin [address] tablet Take 81 mg by mouth every morning. Active tamsulosin (FLOMAX) 0.4 mg 24 hr capsule Take 0.4 mg by mouth every morning. Active cholecalciferol , vitamin D3, 25 mcg (1,000 Unit) tablet Take 2 tablets by mouth every morning. 5 Active busPIRone (BUSPAR) 15 mg tablet Take 15 mg by mouth 2 (two) times a day. Takes at 9:00 AM and 2:00 PM 1 Active dextroamphetami ne-amphetamine (ADDERALL) 20 mg tablet Take 20 mg by mouth daily. Takes between 2:00 - 3:00 PM 0 Active amphetamine-dex troamphetamine (ADDERALL XR) 30 mg 24 hr capsule Take 30 mg by mouth daily. Takes between 9:00 and 10:00 AM 0 Active sertraline (ZOLOFT) 50 mg tablet Take 50 mg by mouth every morning. 2 Active omeprazole (PriLOSEC) [address] capsule Take 20 mg by mouth 2 (two) times a day before breakfast and dinner. 3 Active oxyBUTYnin (DITROPAN-XL) 10 mg 24 hr tablet Take 20 mg by mouth daily. 2 Active allopurinoL (ZYLOPRIM) 100 mg tablet Take 200 mg by mouth daily. 3 Active indomethacin (INDOCIN) 50 mg capsule Take 50 mg by mouth every 6 (six) hours as needed (gout flares). 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/23/2023 Radiculopathy Cervical 01/23/2023 Overactive Bladder 01/23/2023 Gout 01/23/2023 Fusion Of Spine Lumbar Region 01/23/2023 Arthroplasty Total Shoulder Replacement Status P ost Right 01/23/2023 Apnea Sleep Obstructive 03/07/2022 Contracture Dupuytren's 04/22/2020 Overview (06/01/2020): Added automatically from request for surgery [id number] Anophthalmos Acquired 07/09/2018 Melanoma Choroid Left 06/30/2014 Attention Deficit Hyperactive Disorder 4 Overview (11/15/2016): Disorder Attention Deficit Hyperactive (ADHD) Depressive Disorder 04/23/2014 Overview (11/15/2016): Depression NOS Personal History Of Malignant Neoplasm Of Prosta te 05/12/2011 Gastroesophageal Reflux Disease NOS 09/17/2010 Benign Prostatic Hyperplasia With Lower Urinary Tract Symptom 07/07/2010 Hyperlipidemia Mixed 11/05/2008 Overview (01/23/2023): Suggest recheck fall 2008 Anxiety Generalized Disorder 11/13/2006 Major Depressive Disorder, Recurrent, Unspecifie d 11/13/2006 Neuropathy Ulnar Bilateral Resolved Problems Problem Noted Date Diagnosed Date Resolved Date 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 More than 4 times per year 11/23/2021 Do you belong to any clubs o r organizations such as yazidism groups, unions, fraternal or athletic groups, or [...] when you are drinking? 1 or 2 Q3: How often do you have si x or more drinks on one occasion? Less than monthly 11/23/2021 Overall Financial Resource Strain (CARDIA) Answe r Date Recorded How hard is it for you to pa y for the very basics like food, housing, medical care, and heating? Not hard at all 01/23/2023 [facility] - Occupational Stress Questionnaire Answer Date [...] your living situation today? I have a [facility] place to live 01/23/2023 Education Answer Date Recorded What is the highest level of school you have completed or the highest degree you have received? Bachelor's degree (e.g., BA, AB, BS) 04/22/2020 Sex and Gender Information Value Date Recorded Sex Assigned at Male 07/09/2018 2:54 PM CNC LATHE PROGRAMMER Legal Sex Male 9:06 AM CNC LATHE PROGRAMMER Gender Identity Male 07/09/2018 2:54 PM CNC LATHE PROGRAMMER Sexual Orientation Straight 07/09/2018 2: 54 PM CNC LATHE PROGRAMMER Last Filed Vital Signs Vital Sign Reading [...] 3) 02/24/2016 12/30/2015, 06/2015 Lipid (Cholesterol) Screening 06/29/2021 06/29/2020, 09/19/2018, 04/10/2018, Additional history exists Depression Monitoring (PHQ-9 for quality tracking) 06/26/2023 Fall Risk Screen (Annual) 06/26/2023 DTaP,Tdap,and Td Vaccines (2 - Td or Tdap) 11/15/2023 11/14/2013, 05/02/2012, 07/03/2007 COVID-19 Vaccine ( season) 2024 04/15/2023, 05/16/2022, 11/24/2021, Additional history exists Influenza Vaccine (#1) 2024 , 05/16/2022, 02/24/2021, Additional history exists Colonoscopy 07/23/2024 07/23/2019, 06/27, 06/03/2014, Additional history exists Colorectal Cancer Surveillance 07/23/2024 Fasting Glucose for Diabetes Screening 08/23/2026 08/24/2023, 06/08/2023, 01/31/2023, Additional history exists Pneumococcal vaccine (65+ years) Completed 12/14/2017, 10/31/2016 Hepatitis A Vaccines Completed 04/25/2019, 05/05/2009, 05/04/2009 Abdominal Aortic Aneurysm (AAA) Screen Completed 07/28/2023, 12/06/2021, 04/16/2020, Additional history exists IPV Vaccines Aged Out No longer eligi ble based on patient's age to complete this topic Medical Devices Implanted Type Area Shorts Sifter Device Identifier Shelf Expiration Date Model / Serial / Lot Cement Bone Small - Garcia [id number] Implanted:Qty: 1 on 05/27/2011 Misc Other [place] Description:Device Manufactu rer - [id number] Marvin.. Device Status Text - [id number]. Medpor - Maritza Wedge Left Regular - Garcia [id number] Implanted:Qty: 1 on 10/29/2014 Mis Prosthesis Other/Legacy - See Implant Description Other/Legacy - See Implant Description Description:Device Manufactu rer - [employer]. Body Location - Other. Left. Device Status Text - [facility] [id number]. Sphere Medpor Sst Ez 20mm - Garcia [id number] Implanted:Qty: 1 on 07/02/2014 Ocular (Eye) Implant Other/Legacy - See Implant Description Other/Legacy - See Implant Description Description:Device Manufactu rer - [employer]. Body Location - Other. Left. Device Status Text - [id number]. Conformer Sweetser Medium - Garcia [id number] Implanted:Qty: 1 on 07/02/2014 Ocular (Eye) Implant Other/Legacy - See Implant Description [employer] Description:Device Manufactu rer - [employer]. Body Location - Other. Left. Device Status Text - [id number]. Reunion-Hum Stem Press-Fit 14mm - Garcia [id number] Implanted:Qty: 1 on 05/27/2011 Shoulder Implant Other/Legacy - See Implant Description Shanell Description:Device Manufactu rer - Shanell Marvin.. Body Location - Other. Right. Device Status Text - [id number]. Reunion-Glenoi d S-Pressure X3 Sz48 - Garcia [id number] Implanted:Qty: 1 on 05/27/2011 Shoulder Implant Other/Legacy - See Implant Description [place] Description:Device Manufactu rer - [employer] Marvin.. Body Location - Other. Right. Device Status Text - [id number]. Reunion-Soo l Head Std 48 X 24 - [id number] Implanted:Qty: 1 on 05/27/2011 Shoulder Implant Other/Legacy - See Implant Description [place] Description:Device Manufactu rer - [employer] Marvin.. Body Location - Other. Right. Device Status Text - [id number]. Conversions - Default Historical Implant Device Implanted:12/25 (Quantity not on file) Shoulder Implant Right: Shoulder Description:Body Location - Shoulder R. TSA. Device Status Text - Shoulder Joint. Hum Cup Reu 4x36 - [id number] Implanted:Qty: 1 on 02/15/2023 by Douglas Lipscomb M.D., Ph.D. at [facility] Shoulder Implant Right: Shoulder Shanell 01/30/2027 [id number] / / [id number] Hum Ins Reu X3 Rvrs 10x36 - [id number] Implanted:Qty: 1 on 02/15/2023 by Douglas Lipscomb M.D., Ph.D. at [facility] Shoulder Implant Right: Shoulder Shanell 01/25/2027 [id number] / / [id number] Tornier Perform Reversed Glenoid, Press-Fit Short Post, Length: 7mm Implanted:Qty: 1 on 02/15/2023 by Douglas Lipscomb M.D., Ph.D. at [facility] Shoulder Implant Right: Shoulder [facility] 12/23/2027 [id number] / [id number] / Tornier Perform Reversed Augmented Glenoid, Full-Wedge Augment Baseplate, 29mm, Angle: 15 Degree Implanted:Qty: 1 on 02/15/2023 by Douglas Lipscomb M.D., Ph.D. at [facility] Shoulder Implant Right: Shoulder [facility] 12/31/2027 [id number] / [id number] / Tornier Perform Reversed Glenoid, Eccentric Glenosphere Cocr, Diameter: 36mm, Offset +2mm Implanted:Qty: 1 on 02/15/2023 by Douglas Lipscomb M.D., Ph.D. at [facility] Shoulder Implant Right: Shoulder [facility] 10/07/2027 [id number] / [id number] / Conversions - Default Historical Implant Device Implanted:12/25 (Quantity not on file) Spine Implant Spine Lumbar Description:Body Location - Lumbar. Device Status Text - Spine Implant. Explanted Type Area Shorts Sifter Device Identifier Shelf Expiration Date Model / Serial / Lot Splnt Ext Fx Dgt Pip Jnt Lg - [id number] Implanted:Qty: 1 on 06/03/2020 by Mehdi Diego M.D. at [facility] Hardware e.g. pins/screws/ rods [employer] [facility] 05/26/2029 [id number] / / [id number] Procedures Procedure Name Priority Date/Time Associated Diagnosis Comments CT ABDOMEN PELVIS WITH IV CONTRAST RAD - Routine (most inpatients and all outpatients) 07/28/2023 9:48 AM CNC LATHE PROGRAMMER Melanoma Choroid Left (HCC) BASIC METABOLIC PANEL, S/P Routine 04/23/2014 10:07 AM CDT from Last 3 Months or Most Recently Relevant to Health Maintenance Results * CT Abdomen Pelvis with IV Contrast (07/28/2023 9:48 AM CNC LATHE PROGRAMMER) Anatomical Region Laterality Modality Abdomen, Pelvis, Abdominal R ST LOS, Abdominal ARZ LOS, Abdominal FLA LOS N/A Computed Tomograp hy, Computed Tomography 07/28/2023 9:25 AM CNC LATHE PROGRAMMER Impressions 07/28/2023 10:23 AM CNC LATHE PROGRAMMER 1. No evidence of metastatic disease within abdomen pelvis. 2. Stable incidental findings. Narrative 07/28/2023 10:23 AM CNC LATHE PROGRAMMER EXAM: ??CT ABDOMEN PELVIS WITH IV CONTRAST [...] findings. Chyna Hanks M.D. IMG CT PROCEDURES Final Res ult * (ABNORMAL) BMP (Basic Metabolic Panel) (04/23/2014 10:07 AM CDT) BUN (Blood Urea Nitrogen), S 21 7 - 23 MGDL POWERCHART Creatinine 1.1 0.9 - 1.4 MGDL POWERCHART Potassium, S 5.1(H) 3.5 - 4.8 MMOLL POWERCHART Sodium, S 142 135 - 145 MMOLL POWERCHART Chloride, S 104 100 - 108 MMOLL POWERCHART CO2 Total 29 22 - 30 MMOLL POWERCHART Calcium, Total, S 9.3 8.5 - 10.5 MGDL POWERCHART HXeGFR (MDRD) >60 MLMIN POWERCHART eGFR Black/ >60 MLMIN POWERCHART Glucose, Fasting, S 88 70 - 99 MGDL POWERCHART Blood 04/23/2014 10:0 7 AM CDT Ronnie Corbin M.D. LAB BLOOD ADD-ON Final Res ult POWERCHART from Last 3 Months or Most Recently Relevant to Health Maintenance [facility] Care Teams Pv Installer Tech Relationship Specialty Start Date End Date Elsewhere, Pcp PCP - General Internal Medicine 02/01/23
--- OUTSIDE RECORDS SUMMARY | 2024-05-10 13:45 | XMS_ITS | Encounter Summary ---
Author Organization [facility] Address [address] [place] [address] Care Team Providers Care Photoengraving Finisher Name Role Phone Elsewhere, Pcp Primary Care Provider Unavailabl e Encounter Details Date Type Department Care Team (Late st Contact Info) Description 09/28/2011 Historical Ophthalmology RST OPH Kenyon Lucas M.D. Social History Tobacco Use Types Packs/Day Years Used Date Smoking Tobacco: Never Assessed Sex and Gender Information Value Date Recorded Sex Assigned at Male 07/09/2018 2:54 PM LAMINATION OPERATOR Legal Sex Male 9:06 AM LAMINATION OPERATOR Gender Identity Male 07/09/2018 2:54 PM LAMINATION OPERATOR Sexual Orientation Straight 07/09/2018 2: 54 PM LAMINATION OPERATOR documented as of this encounter Progress [...] no biopsy -09/03; mushroom-shaped lesion (pigmented base [id number] with amelanotic apex; vascularization of apex without drusen or orange pigment; base 5mm from disc superonasally; Subretinal fluid surroundingbase; SD 360 degrees; invasion of choroidal mass into and under retina -US with mvbdaz-jm-emp reflectivity and mushroom shape; extensive growth over [...] was discussed with the patient (or legal employee relations representative and others present during the [...] right eye CDM Reports - EYEGEN Id: [id number] Status: Fnl documented in this encounter Plan of Treatment Not on file documented as of this encounter Visit Diagnoses Not on filedocumented in this encounter Additional Health Concerns Infection Onset Date Last Indicated Resolved Time COVID19 Pending 06/01/2020 06/01/2020 06/01/2020 9 :35 PM LAMINATION OPERATOR COVID19 Pending 09/28/2020 09/28/2020 09/28/2020 1 2:02 PM CDT COVID19 Pending 01/13/2022 01/13/2022 01/13/2022 9 :52 PM CDT Assessment Noted Time PHQ-9 Depression Total Score: 7 09/21/19 11 11:02 AM CDT documented as of this encounter Care Teams Photoengraving Finisher Relationship Specialty Start Date End Date Elsewhere, Pcp PCP - General Internal Medicine 02/01/23 documented as of this encounter
--- OUTSIDE RECORDS SUMMARY | 2024-05-10 13:45 | XMS_ITS | Encounter Summary ---
Author Organization [facility] Address [address] [place] [address] Care Team Providers Care Manager Utilization Management Name Role Phone Elsewhere, Pcp Primary Care Provider Unavailabl e Encounter Details Date Type Department Care Team (Late st Contact Info) Description 01/26/2015 Historical Ophthalmology RST OPH Jacobo Crawford M.D. [address] [place] [phone] Social History Tobacco Use Types Packs/Day Years Used Date Smoking Tobacco: Never Assessed Sex and Gender Information Value Date Recorded Sex Assigned at Male 07/09/2018 2:54 PM SALVAGE INSPECTOR Legal Sex Male 9:06 AM SALVAGE INSPECTOR Gender Identity Male 07/09/2018 2:54 PM SALVAGE INSPECTOR Sexual Orientation Straight 07/09/2018 2: 54 PM SALVAGE INSPECTOR documented as of this encounter Progress Notes * Jacobo Crawford M.D. - 01/26/2015 10:45 AM CDT Eye Postoperative MULTI-VISIT DOCUMENT This document contains multiple patient visits and is available for review in Document Viewer. CDM Reports - EYEPO Id: [id number] Status: Fnl documented in this encounter Plan of Treatment Not on file documented as of this encounter Visit Diagnoses Not on filedocumented in this encounter Additional Health Concerns Infection Onset Date Last Indicated Resolved Time COVID19 Pending 06/01/2020 06/01/2020 06/01/2020 9 :35 PM SALVAGE INSPECTOR COVID19 Pending 09/28/2020 09/28/2020 09/28/2020 1 2:02 PM CDT COVID19 Pending 01/13/2022 01/13/2022 01/13/2022 9 :52 PM CDT Assessment Noted Time PHQ-9 Depression Total Score: 7 09/21/19 11 11:02 AM CDT documented as of this encounter Care Teams Manager Utilization Management Relationship Specialty Start Date End Date Elsewhere, Pcp PCP - General Internal Medicine 02/01/23 documented as of this encounter
--- OUTSIDE RECORDS SUMMARY | 2024-05-10 13:45 | XMS_ITS | Encounter Summary ---
Author Organization [facility] Address [address] [place] [address] Care Team Providers Care Reel Blade Bender Furnace Tender Name Role Phone Elsewhere, Pcp Primary Care Provider Unavailabl e Encounter Details Date Type Department Care Team (Late st Contact Info) Description 12/01/2011 Historical Ophthalmology RST OPH Kenyon Lucas M.D. Social History Tobacco Use Types Packs/Day Years Used Date Smoking Tobacco: Never Assessed Sex and Gender Information Value Date Recorded Sex Assigned at Male 07/09/2018 2:54 PM SIGNAL SYSTEM TESTING MAINTAINER Legal Sex Male 9:06 AM SIGNAL SYSTEM TESTING MAINTAINER Gender Identity Male 07/09/2018 2:54 PM SIGNAL SYSTEM TESTING MAINTAINER Sexual Orientation Straight 07/09/2018 2: 54 PM SIGNAL SYSTEM TESTING MAINTAINER documented as of this encounter Progress Notes * Kenyon Lucas M.D. - 12/01/2011 9:43 AM CDT Eye Postoperative MULTI-VISIT DOCUMENT This document contains multiple patient visits and is available for review in Document Viewer. CDM Reports - EYEPO Id: [id number] Status: Fnl documented in this encounter Plan of Treatment Not on file documented as of this encounter Visit Diagnoses Not on filedocumented in this encounter Additional Health Concerns Infection Onset Date Last Indicated Resolved Time COVID19 Pending 06/01/2020 06/01/2020 06/01/2020 9 :35 PM SIGNAL SYSTEM TESTING MAINTAINER COVID19 Pending 09/28/2020 09/28/2020 09/28/2020 1 2:02 PM CDT COVID19 Pending 01/13/2022 01/13/2022 01/13/2022 9 :52 PM CDT Assessment Noted Time PHQ-9 Depression Total Score: 7 09/21/19 11 11:02 AM CDT documented as of this encounter Care Teams Reel Blade Bender Furnace Tender Relationship Specialty Start Date End Date Elsewhere, Pcp PCP - General Internal Medicine 02/01/23 documented as of this encounter
--- OUTSIDE RECORDS SUMMARY | 2024-05-10 13:45 | XMS_ITS | Encounter Summary ---
Author Organization [facility] Address [address] [place] [id number] Care Team Providers Care Pharmacy Clinical Coordinator Name Role Phone Elsewhere, Pcp Primary Care Provider Unavailabl e Encounter Details Date Type Department Care Team (Late st Contact Info) Description 10/27/2014 Historical Ophthalmology RST OPH Jacobo Crawford M.D. 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 - EYEGEN Id: [id number] Status: Fnl documented in this encounter Plan of Treatment Not on file documented as of this encounter Visit Diagnoses Not on filedocumented in this encounter Additional Health Concerns Infection Onset Date Last Indicated Resolved Time COVID19 Pending 06/01/2020 06/01/2020 06/01/2020 9 :35 PM FOOD SAFETY FIELD SPECIALIST COVID19 Pending 09/28/2020 09/28/2020 09/28/2020 1 2:02 PM CDT COVID19 Pending 01/13/2022 01/13/2022 01/13/2022 9 :52 PM CDT Assessment Noted Time PHQ-9 Depression Total Score: 7 09/21/19 11 11:02 AM CDT documented as of this encounter Care Teams Pharmacy Clinical Coordinator Relationship Specialty Start Date End Date Elsewhere, Pcp PCP - General Internal Medicine 02/01/23 documented as of this encounter
--- OUTSIDE RECORDS SUMMARY | 2024-05-10 13:45 | XMS_ITS | Encounter Summary ---
Author Organization [facility] Address [address] [place] [address] Care Team Providers Care Contract Runner Name Role Phone Elsewhere, Pcp Primary Care Provider Unavailabl e Encounter Details Date Type Department Care Team (Late st Contact Info) Description 09/17/2010 Historical Ophthalmology RST OPH Raeann Harding, C.O.A. Social History Tobacco Use Types Packs/Day Years Used Date Smoking Tobacco: Never Assessed Sex and Gender Information Value Date Recorded Sex Assigned at Male 07/09/2018 2:54 PM METROLOGY TECHNICIAN Legal Sex Male 9:06 AM METROLOGY TECHNICIAN Gender Identity Male 07/09/2018 2:54 PM METROLOGY TECHNICIAN Sexual Orientation Straight 07/09/2018 2: 54 PM METROLOGY TECHNICIAN documented as of this encounter Progress [...] #1 Presbyopia CDM Reports - EYESV Id: [id number] Status: Fnl documented in this encounter Plan of Treatment Not on file documented as of this encounter Visit Diagnoses Not on filedocumented in this encounter Additional Health Concerns Infection Onset Date Last Indicated Resolved Time COVID19 Pending 06/01/2020 06/01/2020 06/01/2020 9 :35 PM METROLOGY TECHNICIAN COVID19 Pending 09/28/2020 09/28/2020 09/28/2020 1 2:02 PM CDT COVID19 Pending 01/13/2022 01/13/2022 01/13/2022 9 :52 PM CDT documented as of this encounter Care Teams Contract Runner Relationship Specialty Start Date End Date Elsewhere, Pcp PCP - General Internal Medicine 02/01/23 documented as of this encounter
--- OUTSIDE RECORDS SUMMARY | 2024-05-10 13:45 | XMS_ITS | Encounter Summary ---
Author Organization [facility] Address [address] [place] [address] Care Team Providers Care Picker Feeder Name Role Phone Elsewhere, Pcp Primary Care Provider Unavailabl e Encounter Details Date Type Department Care Team (Late st Contact Info) Description 01/27/2011 Historical Ophthalmology RST OPH Kenyon Lucas M.D. Social History Tobacco Use Types Packs/Day Years Used Date Smoking Tobacco: Never Assessed Sex and Gender Information Value Date Recorded Sex Assigned at Male 07/09/2018 2:54 PM BUCKET WASH OPERATOR Legal Sex Male 9:06 AM BUCKET WASH OPERATOR Gender Identity Male 07/09/2018 2:54 PM BUCKET WASH OPERATOR Sexual Orientation Straight 07/09/2018 2: 54 PM BUCKET WASH OPERATOR documented as of this encounter Progress [...] / REPORT / PLAN 27 Jan 2011 Left Eye: Tumor 3.8-3.9mm x 8.7mm x [...] to 10mm inner sclera no biopsy -11 09/03; mushroom-shaped lesion (pigmented base [id number] with amelanotic apex; vascularization of apex without drusen or orange pigment; base 5mm from disc superonasally; Subretinal fluid surroundingbase; SD 360 degrees; invasion of choroidal mass into and under retina -US with [id number] reflectivity and mushroom shape; extensive growth over [...] #7 Rosacea CDM Reports - EYEGEN Id: [id number] Status: Fnl documented in this encounter Plan of Treatment Not on file documented as of this encounter Visit Diagnoses Not on filedocumented in this encounter Additional Health Concerns Infection Onset Date Last Indicated Resolved Time COVID19 Pending 06/01/2020 06/01/2020 06/01/2020 9 :35 PM BUCKET WASH OPERATOR COVID19 Pending 09/28/2020 09/28/2020 09/28/2020 1 2:02 PM CDT COVID19 Pending 01/13/2022 01/13/2022 01/13/2022 9 :52 PM CDT Assessment Noted Time PHQ-9 Depression Total Score: 7 09/21/19 11 11:02 AM CDT documented as of this encounter Care Teams Picker Feeder Relationship Specialty Start Date End Date Elsewhere, Pcp PCP - General Internal Medicine 02/01/23 documented as of this encounter
--- OUTSIDE RECORDS SUMMARY | 2024-05-10 13:45 | XMS_ITS | Encounter Summary ---
Author Organization [facility] Address [address] [place] [address] Care Team Providers Care Transit Operations Supervisor Name Role Phone Elsewhere, Pcp Primary Care Provider Unavailabl e Encounter Details Date Type Department Care Team (Late st Contact Info) Description 06/18/2012 Historical Ophthalmology RST OPH Kenyon Lucas M.D. Social History Tobacco Use Types Packs/Day Years Used Date Smoking Tobacco: Never Assessed Sex and Gender Information Value Date Recorded Sex Assigned at Male 07/09/2018 2:54 PM SKILLED NURSING CASE MANAGER Legal Sex Male 9:06 AM SKILLED NURSING CASE MANAGER Gender Identity Male 07/09/2018 2:54 PM SKILLED NURSING CASE MANAGER Sexual Orientation Straight 07/09/2018 2: 54 PM SKILLED NURSING CASE MANAGER documented as of this encounter [...] no biopsy -09/03; mushroom-shaped lesion (pigmented base 13.6v77n4hi with amelanotic apex; vascularization of apex without drusen or orange pigment; base 5mm from disc superonasally; Subretinal fluid surroundingbase; SD 360 degrees; invasion of choroidal mass into and under retina -US with yaawde-js-wzl reflectivity and mushroom shape; extensive growth over [...] was discussed with the patient (or legal jewelry sales representative and others present during the [...] to continue with more Avastin left eye [id number] apart with Dr. Medellin. Will do Avastin [...] This was discussed with thepatient (or legal jewelry sales representative and others present during discussion).. The patient understands and wishes to proceed. Discussed in detail lack of toxicity data, lack of approval for intraocular useand that there have been hundreds if not thousands treated since December 2004. Discussed possible systemic problems such as GI bleed, [place] and stroke. Plan to proceed with Avastin [...] biopsy 10-04 #2 Neovascular glaucoma, left eye #4 Cataract, both eyes #5 Choroidal nevus, left eye #6 Peripheral retinoschisis, right eye #7 prostate cancer #8 Rosacea #9 Pterygium, right eye #10 blood spots on nose CDM Reports - EYEGEN Id: [id number] Status: Fnl documented in this encounter Plan of Treatment Not on file documented as of this encounter Visit Diagnoses Not on filedocumented in this encounter Additional Health Concerns Infection Onset Date Last Indicated Resolved Time COVID19 Pending 06/01/2020 06/01/2020 06/01/2020 9 :35 PM SKILLED NURSING CASE MANAGER COVID19 Pending 09/28/2020 09/28/2020 09/28/2020 1 2:02 PM CDT COVID19 Pending 01/13/2022 01/13/2022 01/13/2022 9 :52 PM CDT Assessment Noted Time PHQ-9 Depression Total Score: 7 09/21/19 11 11:02 AM CDT documented as of this encounter Care Teams Transit Operations Supervisor Relationship Specialty Start Date End Date Elsewhere, Pcp PCP - General Internal Medicine 02/01/23 documented as of this encounter
--- OUTSIDE RECORDS SUMMARY | 2024-05-10 13:45 | XMS_ITS | Encounter Summary ---
Author Organization [facility] Address [address] [place] [address] Care Team Providers Care Rayon Winder Name Role Phone Elsewhere, Pcp Primary Care Provider Unavailabl e Encounter Details Date Type Department Care Team (Late st Contact Info) Description 06/30/2014 Historical Ophthalmology RST OPH Jacobo Crawford M.D. [address] [place] [address] [phone] Social History Tobacco Use Types Packs/Day Years Used Date Smoking Tobacco: Never Assessed Sex and Gender Information Value Date Recorded Sex Assigned at Male 07/09/2018 2:54 PM STOCK BLENDER Legal Sex Male 9:06 AM STOCK BLENDER Gender Identity Male 07/09/2018 2:54 PM STOCK BLENDER Sexual Orientation Straight 07/09/2018 2: 54 PM STOCK BLENDER documented as of this encounter Progress Notes [...] left eye. CDM Reports - EYEGEN Id: [id number] Status: Fnl documented in this encounter Plan of Treatment Not on file documented as of this encounter Visit Diagnoses Not on filedocumented in this encounter Additional Health Concerns Infection Onset Date Last Indicated Resolved Time COVID19 Pending 06/01/2020 06/01/2020 06/01/2020 9 :35 PM STOCK BLENDER COVID19 Pending 09/28/2020 09/28/2020 09/28/2020 1 2:02 PM CDT COVID19 Pending 01/13/2022 01/13/2022 01/13/2022 9 :52 PM CDT Assessment Noted Time PHQ-9 Depression Total Score: 7 09/21/19 11 11:02 AM CDT documented as of this encounter Care Teams Rayon Winder Relationship Specialty Start Date End Date Elsewhere, Pcp PCP - General Internal Medicine 02/01/23 documented as of this encounter
--- OUTSIDE RECORDS SUMMARY | 2024-05-10 13:45 | XMS_ITS | Encounter Summary ---
Author Organization [facility] Address [address] [place] [address] Care Team Providers Care On Call Pharmacy Technician Name Role Phone Elsewhere, Pcp Primary Care Provider Unavailabl e Encounter Details Date Type Department Care Team (Late st Contact Info) Description 10/02/2014 Historical Ophthalmology RST OPH Jacobo Crawford M.D. [address] [place] [address] [phone] Social History Tobacco Use Types Packs/Day Years Used Date Smoking Tobacco: Never Assessed Sex and Gender Information Value Date Recorded Sex Assigned at Male 07/09/2018 2:54 PM DIGITAL PRODUCTION ARTIST Legal Sex Male 9:06 AM DIGITAL PRODUCTION ARTIST Gender Identity Male 07/09/2018 2:54 PM DIGITAL PRODUCTION ARTIST Sexual Orientation Straight 07/09/2018 2: 54 PM DIGITAL PRODUCTION ARTIST documented as of this encounter Progress Notes * Jacobo Crawford M.D. 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 Id: [id number] Status: Fnl documented in this encounter Plan of Treatment Not on file documented as of this encounter Visit Diagnoses Not on filedocumented in this encounter Additional Health Concerns Infection Onset Date Last Indicated Resolved Time COVID19 Pending 06/01/2020 06/01/2020 06/01/2020 9 :35 PM DIGITAL PRODUCTION ARTIST COVID19 Pending 09/28/2020 09/28/2020 09/28/2020 1 2:02 PM CDT COVID19 Pending 01/13/2022 01/13/2022 01/13/2022 9 :52 PM CDT Assessment Noted Time PHQ-9 Depression Total Score: 7 09/21/19 11 11:02 AM CDT documented as of this encounter Care Teams On Call Pharmacy Technician Relationship Specialty Start Date End Date Elsewhere, Pcp PCP - General Internal Medicine 02/01/23 documented as of this encounter
--- OUTSIDE RECORDS SUMMARY | 2024-05-10 13:45 | XMS_ITS | Encounter Summary ---
Author Organization [facility] Address [address] [place] [address] Care Team Providers Care Scale And Skip Car Operator Name Role Phone Elsewhere, Pcp Primary Care Provider Unavailabl e Encounter Details Date Type Department Care Team (Late st Contact Info) Description 01/09/2014 Historical Ophthalmology RST OPH Kenyon Lucas M.D. Social History Tobacco Use Types Packs/Day Years Used Date Smoking Tobacco: Never Assessed Sex and Gender Information Value Date Recorded Sex Assigned at Male 07/09/2018 2:54 PM RETORT CONDENSER ATTENDANT Legal Sex Male 9:06 AM RETORT CONDENSER ATTENDANT Gender Identity Male 07/09/2018 2:54 PM RETORT CONDENSER ATTENDANT Sexual Orientation Straight 07/09/2018 2: 54 PM RETORT CONDENSER ATTENDANT documented as of this encounter Progress Notes [...] left eye 09/03; mushroom-shaped lesion (pigmented base 13.7j55z3kx with amelanotic apex; vascularization of apex without drusen or orange pigment; base 5mm from disc superonasally; Subretinal fluid surroundingbase; SD 360 degrees; invasion of choroidal mass into and under retina -US with owvftp-xu-eur reflectivity and mushroom shape; extensive growth over [...] discussed with the patient (or legal territory service representative and others present during the [...] to continue with more Avastin left eye R3qlllf apart with Dr. Medellin. Will do Avastin [...] was discussed with thepatient (or legal territory service representative and others present during discussion).. The patient understands and wishes to proceed. Discussed in detail lack of toxicity data, lack of approval for intraocular useand that there have been hundreds if not thousands treated since December 2004. Discussed possible systemic problems such as GI bleed, [place] and stroke. Plan to proceed with Avastin [...] right eye CDM Reports - EYEGEN Id: [id number] Status: Fnl documented in this encounter Plan of Treatment Not on file documented as of this encounter Visit Diagnoses Not on filedocumented in this encounter Additional Health Concerns Infection Onset Date Last Indicated Resolved Time COVID19 Pending 06/01/2020 06/01/2020 06/01/2020 9 :35 PM RETORT CONDENSER ATTENDANT COVID19 Pending 09/28/2020 09/28/2020 09/28/2020 1 2:02 PM CDT COVID19 Pending 01/13/2022 01/13/2022 01/13/2022 9 :52 PM CDT Assessment Noted Time PHQ-9 Depression Total Score: 7 09/21/19 11 11:02 AM CDT documented as of this encounter Care Teams Scale And Skip Car Operator Relationship Specialty Start Date End Date Elsewhere, Pcp PCP - General Internal Medicine 02/01/23 documented as of this encounter
--- OUTSIDE RECORDS SUMMARY | 2024-05-10 13:45 | XMS_ITS | Referral Summary ---
Author Organization [facility] Address [address] [place] [address] Care Team Providers Care Back Tender Paper Machine Name Role Phone Elsewhere, Pcp Primary Care Provider Unavailabl e Source Comments Patient records contain information from all sites at [facility]. For routine questions regarding patient records, call [phone] during business hours, M-F 8:00 AM - 5:00 PM Central Time. 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 More than 4 times per year 11/23/2021 Do you belong to any clubs o r organizations such as jainism groups, unions, fraternal or athletic groups, or [...] and heating? Not hard at all 01/23/2023 [facility] - Occupational Stress Questionnaire Answer Date Recorded [...] your living situation today? I have a [facility] place to live 01/23/2023 Education Answer Date Recorded What is the highest level of school you have completed or the highest degree you have received? Bachelor's degree (e.g., BA, AB, BS) 04/22/2020 Sex and Gender Information Value Date Recorded Sex Assigned at Male 07/09/2018 2:54 PM PLASTER MOLD MAKER Legal Sex Male 9:06 AM PLASTER MOLD MAKER Gender Identity Male 07/09/2018 2:54 PM PLASTER MOLD MAKER Sexual Orientation Straight 07/09/2018 2: 54 PM PLASTER MOLD MAKER Last Filed Vital Signs Vital Sign Reading [...] on file Medical Devices Implanted Type Area Personal Development Educator Device Identifier Shelf Expiration Date Model / Serial / Lot Cement Bone Small - Garcia [id number] Implanted:Qty: 1 on 05/27/2011 Misc Other [place] Description:Device Manufactu rer - [employer] Device Status Text - [id number]. Medpor - Maritza Wedge Left Regular - Garcia [id number] Implanted:Qty: 1 on 10/29/2014 Misc Prosthesis Other/Legacy - See Implant Description Other/Legacy - See Implant Description Description:Device Manufactu rer - [employer]. Body Location - Other. Left. Device Status Text - [facility] [id number]. Sphere Medpor Sst Ez 20mm - Garcia [id number] Implanted:Qty: 1 on 07/02/2014 Ocular (Eye) Implant Other/Legacy - See Implant Description Other/Legacy - See Implant Description Description:Device Manufactu rer - [employer]. Body Location - Other. Left. Device Status Text - [id number]. Conformer [place] Medium - Garcia [id number] Implanted:Qty: 1 on 07/02/2014 Ocular (Eye) Implant Other/Legacy - See Implant Description [employer] Description:Device Manufactu rer - [employer]. Body Location - Other. Left. Device Status Text - [id number]. Reunion-Hum Stem Press-Fit 14mm - Garcia [id number] Implanted:Qty: 1 on 05/27/2011 Shoulder Implant Other/Legacy - See Implant Description Shanell Description:Device Manufactu rer - [place] [employer].. Body Location - Other. Right. Device Status Text - [id number]. Reunion-Glenoi d S-Pressure X3 Sz48 - Garcia [id number] Implanted:Qty: 1 on 05/27/2011 Shoulder Implant Other/Legacy - See Implant Description [place] Description:Device Manufactu rer - [place] [employer].. Body Location - Other. Right. Device Status Text - [id number]. Reunion-Soo l Head Std 48 X 24 - Garcia [id number] Implanted:Qty: 1 on 05/27/2011 Shoulder Implant Other/Legacy - See Implant Description [place] Description:Device Manufactu rer - Shan[place] Marvin.. Body Location - Other. Right. Device Status Text - [id number]. Conversions - Default Historical Implant Device Implanted:12/25 (Quantity not on file) Shoulder Implant Right: Shoulder Description:Body Location - Shoulder R. TSA. Device Status Text - Shoulder Joint. Hum Cup Reu 4x36 - [id number] Implanted:Qty: 1 on 02/15/2023 by Douglas Lipscomb M.D., Ph.D. at [facility] Shoulder Implant Right: Shoulder [place] 01/30/2027 [id number] / / [id number] Hum Ins Reu X3 Rvrs 10x36 - [id number] Implanted:Qty: 1 on 02/15/2023 by Douglas Lipscomb M.D., Ph.D. at [facility] Shoulder Implant Right: Shoulder [place] 01/25/2027 [id number] / / [id number] Torle Perform Reversed Glenoid, Press-Fit Short Post, Length: 7mm Implanted:Qty: 1 on 02/15/2023 by Douglas Lipscomb M.D., Ph.D. at [facility] Shoulder Implant Right: Shoulder [facility] 12/23/2027 [id number] / [id number] / Melina Perform Reversed Augmented Glenoid, Full-Wedge Augment Baseplate, 29mm, Angle: 15 Degree Implanted:Qty: 1 on 02/15/2023 by Douglas Lipscomb M.D., Ph.D. at [facility] Shoulder Implant Right: Shoulder [facility] 12/31/2027 [id number] / [id number] / Melina Perform Reversed Glenoid, Eccentric Glenosphere Cocr, Diameter: 36mm, Offset +2mm Implanted:Qty: 1 on 02/15/2023 by Douglas Lipscomb M.D., Ph.D. at [facility] Shoulder Implant Right: Shoulder [facility] 10/07/2027 [id number] / [id number] / Conversions - Default Historical Implant Device Implanted:12/25 (Quantity not on file) Spine Implant Spine Lumbar Description:Body Location - Lumbar. Device Status Text - Spine Implant. Explanted Type Area Personal Development Educator Device Identifier Shelf Expiration Date Model / Serial / Lot Splnt Ext Fx Dgt Pip Jnt Lg - [id number] Implanted:Qty: 1 on 06/03/2020 by Mehdi Diego M.D. at [facility] Hardware e.g. pins/screws/ rods [employer] [facility] 05/26/2029 [id number] / / [id number] Procedures Procedure Name Priority Date/Time Associated Diagnosis Comments CT ABDOMEN PELVIS WITH IV CONTRAST RAD - Routine (most inpatients and all outpatients) 07/28/2023 9:48 AM PLASTER MOLD MAKER Melanoma Choroid Left (HCC) BASIC METABOLIC PANEL, S/P Routine 04/23/2014 10:07 AM CDT from Last 3 Months or Most Recently Relevant to Health Maintenance Results * CT Abdomen Pelvis with IV Contrast (07/28/2023 9:48 AM PLASTER MOLD MAKER) Anatomical Region Laterality Modality Abdomen, Pelvis, Abdominal R ST LOS, Abdominal ARZ LOS, Abdominal FLA LOS N/A Computed Tomograp hy, Computed Tomography 07/28/2023 9:25 AM PLASTER MOLD MAKER Impressions 07/28/2023 10:23 AM PLASTER MOLD MAKER 1. No evidence of metastatic disease within abdomen pelvis. 2. Stable incidental findings. Narrative 07/28/2023 10:23 AM PLASTER MOLD MAKER EXAM: ??CT ABDOMEN PELVIS WITH IV CONTRAST [...] reported separately. Procedure Note Wolf Villalta M.B.B.S., MSusannah. - 07/28/2023 EXAM: CT ABDOMEN PELVIS [...] POWERCHART Blood 04/23/2014 10:0 7 AM CDT Campbell Corbin M.D. LAB BLOOD ADD-ON Final Res ult POWERCHART from Last 3 Months or Most Recently Relevant to Health Maintenance Insurance MEDICARE [facility] Care Teams Back Tender Paper Machine Relationship Specialty Start Date End Date Elsewhere, Pcp PCP - General Internal Medicine 02/01/23
--- OUTSIDE RECORDS SUMMARY | 2024-05-10 13:45 | XMS_ITS | Encounter Summary ---
Author Organization [facility] Address [address] [place] [address] Care Team Providers Care Careers Counsellor Name Role Phone Elsewhere, Pcp Primary Care Provider Unavailabl e Encounter Details Date Type Department Care Team (Late st Contact Info) Description 04/16/2015 Historical Ophthalmology RST OPH Kenyon Lucas M.D. Social History Tobacco Use Types Packs/Day Years Used Date Smoking Tobacco: Never Assessed Sex and Gender Information Value Date Recorded Sex Assigned at Male 07/09/2018 2:54 PM CONTACT CENTRE SUPERVISOR Legal Sex Male 9:06 AM CONTACT CENTRE SUPERVISOR Gender Identity Male 07/09/2018 2:54 PM CONTACT CENTRE SUPERVISOR Sexual Orientation Straight 07/09/2018 2: 54 PM CONTACT CENTRE SUPERVISOR documented as of this encounter Progress [...] enucleation 07/10 09/03; mushroom-shaped lesion (pigmented base 13.3y72t7mm with amelanotic apex; vascularization of apex without drusen or orange pigment; base 5mm from disc superonasally; Subretinal fluid surroundingbase; SD 360 degrees; invasion of choroidal mass into and under retina -US with sbvcql-wu-oyg reflectivity and mushroom shape; extensive growth over [...] was discussed with the patient (or legal canvas products sales representative and others present during the [...] to continue with more Avastin left eye R7iesez apart with Dr. Medellin. Will do Avastin [...] This was discussed with thepatient (or legal canvas products sales representative and others present during discussion).. The patient understands and wishes to proceed. Discussed in detail lack of toxicity data, lack of approval for intraocular useand that there have been hundreds if not thousands treated since December 2004. Discussed possible systemic problems such as GI bleed, [place] and stroke. Plan to proceed with Avastin [...] PVD right eye, discussed s/sx of RT/D. [facility] Plan 03/2015 F/u [address] [...] right eye CDM Reports - EYEGEN Id: [id number] Status: Fnl documented in this encounter Plan of Treatment Not on file documented as of this encounter Visit Diagnoses Not on filedocumented in this encounter Additional Health Concerns Infection Onset Date Last Indicated Resolved Time COVID19 Pending 06/01/2020 06/01/2020 06/01/2020 9 :35 PM CONTACT CENTRE SUPERVISOR COVID19 Pending 09/28/2020 09/28/2020 09/28/2020 1 2:02 PM CDT COVID19 Pending 01/13/2022 01/13/2022 01/13/2022 9 :52 PM CDT Assessment Noted Time PHQ-9 Depression Total Score: 7 09/21/19 11 11:02 AM CDT documented as of this encounter Care Teams Careers Counsellor Relationship Specialty Start Date End Date Elsewhere, Pcp PCP - General Internal Medicine 02/01/23 documented as of this encounter
--- OUTSIDE RECORDS SUMMARY | 2024-05-10 13:45 | XMS_ITS | Encounter Summary ---
Author Organization [facility] Address [address] [place] [address] Care Team Providers Care Mate First Name Role Phone Elsewhere, Pcp Primary Care Provider Unavailabl e Encounter Details Date Type Department Care Team (Late st Contact Info) Description 09/01/2014 Historical Ophthalmology RST OPH eKnyon Lucas M.D. Social History Tobacco Use Types Packs/Day Years Used Date Smoking Tobacco: Never Assessed Sex and Gender Information Value Date Recorded Sex Assigned at Male 07/09/2018 2:54 PM SENIOR PRODUCTION PLANNER Legal Sex Male 9:06 AM SENIOR PRODUCTION PLANNER Gender Identity Male 07/09/2018 2:54 PM SENIOR PRODUCTION PLANNER Sexual Orientation Straight 07/09/2018 2: 54 PM SENIOR PRODUCTION PLANNER documented as of this encounter Progress Notes [...] enucleation 07/10 09/03; mushroom-shaped lesion (pigmented base 13.6e77b6fo with amelanotic apex; vascularization of apex without drusen or orange pigment; base 5mm from disc superonasally; Subretinal fluid surroundingbase; SD 360 degrees; invasion of choroidal mass into and under retina -US with gihyby-ux-seq reflectivity and mushroom shape; extensive growth over [...] discussed with the patient (or legal senior sales representative and others present during the [...] to continue with more Avastin left eye G7swtse apart with Dr. Medellin. Will do Avastin [...] was discussed with thepatient (or legal senior sales representative and others present during discussion).. The patient understands and wishes to proceed. Discussed in detail lack of toxicity data, lack of approval for intraocular useand that there have been hundreds if not thousands treated since December 2004. Discussed possible systemic problems such as GI bleed, [place] and stroke. Plan to proceed with Avastin [...] right eye CDM Reports - EYEGEN Id: [id number] Status: Fnl documented in this encounter Plan of Treatment Not on file documented as of this encounter Visit Diagnoses Not on filedocumented in this encounter Additional Health Concerns Infection Onset Date Last Indicated Resolved Time COVID19 Pending 06/01/2020 06/01/2020 06/01/2020 9 :35 PM SENIOR PRODUCTION PLANNER COVID19 Pending 09/28/2020 09/28/2020 09/28/2020 1 2:02 PM CDT COVID19 Pending 01/13/2022 01/13/2022 01/13/2022 9 :52 PM CDT Assessment Noted Time PHQ-9 Depression Total Score: 7 09/21/19 11 11:02 AM CDT documented as of this encounter Care Teams Mate First Relationship Specialty Start Date End Date Elsewhere, Pcp PCP - General Internal Medicine 02/01/23 documented as of this encounter
--- OUTSIDE RECORDS SUMMARY | 2024-05-10 13:45 | XMS_ITS | Encounter Summary ---
Author Organization [facility] Address [address] [place] [address] Care Team Providers Care Java Systems Analyst Name Role Phone Elsewhere, Pcp Primary Care Provider Unavailabl e Encounter Details Date Type Department Care Team (Late st Contact Info) Description 09/01/2014 Historical Ophthalmology RST OPH Jacobo Crawford M.D. [address] [place] [address] [phone] Social History Tobacco Use Types Packs/Day Years Used Date Smoking Tobacco: Never Assessed Sex and Gender Information Value Date Recorded Sex Assigned at Male 07/09/2018 2:54 PM DIRECTOR BIOMEDICAL ENGINEERING Legal Sex Male 9:06 AM DIRECTOR BIOMEDICAL ENGINEERING Gender Identity Male 07/09/2018 2:54 PM DIRECTOR BIOMEDICAL ENGINEERING Sexual Orientation Straight 07/09/2018 2: 54 PM DIRECTOR BIOMEDICAL ENGINEERING documented as of this encounter Progress Notes * Jacobo Crawford M.D. - 09/01/2014 8:26 AM CDT Eye Postoperative MULTI-VISIT DOCUMENT This document contains multiple patient visits and is available for review in Document Viewer. CDM Reports - EYEPO Id: [id number] Status: Fnl documented in this encounter Plan of Treatment Not on file documented as of this encounter Visit Diagnoses Not on filedocumented in this encounter Additional Health Concerns Infection Onset Date Last Indicated Resolved Time COVID19 Pending 06/01/2020 06/01/2020 06/01/2020 9 :35 PM DIRECTOR BIOMEDICAL ENGINEERING COVID19 Pending 09/28/2020 09/28/2020 09/28/2020 1 2:02 PM CDT COVID19 Pending 01/13/2022 01/13/2022 01/13/2022 9 :52 PM CDT Assessment Noted Time PHQ-9 Depression Total Score: 7 09/21/19 11 11:02 AM CDT documented as of this encounter Care Teams Java Systems Analyst Relationship Specialty Start Date End Date Elsewhere, Pcp PCP - General Internal Medicine 02/01/23 documented as of this encounter
--- OUTSIDE RECORDS SUMMARY | 2024-05-10 13:45 | XMS_ITS | Encounter Summary ---
Author Organization [facility] Address [address] [place] [id number] Care Team Providers Care Field Automobile Adjuster Name Role Phone Elsewhere, Pcp Primary Care Provider Unavailabl e Encounter Details Date Type Department Care Team (Late st Contact Info) Description 02/19/2015 Historical Ophthalmology RST OPH Jacobo Crawford M.D. [address] [place] [phone] Social History Tobacco Use Types Packs/Day Years Used Date Smoking Tobacco: Never Assessed Sex and Gender Information Value Date Recorded Sex Assigned at Male 07/09/2018 2:54 PM TEAM PSYCHOLOGIST Legal Sex Male 9:06 AM TEAM PSYCHOLOGIST Gender Identity Male 07/09/2018 2:54 PM TEAM PSYCHOLOGIST Sexual Orientation Straight 07/09/2018 2: 54 PM TEAM PSYCHOLOGIST documented as of this encounter Progress Notes [...] fabrication of a new ocular prosthesis by [employer]. Risks and expectations thoroughly discussed. The patient understands and wishes to proceed. 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 CDM Reports - EYEGEN Id: [id number] Status: Fnl documented in this encounter Plan of Treatment Not on file documented as of this encounter Visit Diagnoses Not on filedocumented in this encounter Additional Health Concerns Infection Onset Date Last Indicated Resolved Time COVID19 Pending 06/01/2020 06/01/2020 06/01/2020 9 :35 PM TEAM PSYCHOLOGIST COVID19 Pending 09/28/2020 09/28/2020 09/28/2020 1 2:02 PM CDT COVID19 Pending 01/13/2022 01/13/2022 01/13/2022 9 :52 PM CDT Assessment Noted Time PHQ-9 Depression Total Score: 7 09/21/19 11 11:02 AM CDT documented as of this encounter Care Teams Field Automobile Adjuster Relationship Specialty Start Date End Date Elsewhere, Pcp PCP - General Internal Medicine 02/01/23 documented as of this encounter
--- OUTSIDE RECORDS SUMMARY | 2024-05-10 13:45 | XMS_ITS | Encounter Summary ---
Author Organization [facility] Address [address] [place] [address] Care Team Providers Care Front Office Java Developer Name Role Phone Elsewhere, Pcp Primary Care Provider Unavailabl e Encounter Details Date Type Department Care Team (Late st Contact Info) Description 02/19/2015 Historical Ophthalmology RST OPH Raven Sher Social History Tobacco Use Types Packs/Day Years Used Date Smoking Tobacco: Never Assessed Sex and Gender Information Value Date Recorded Sex Assigned at Male 07/09/2018 2:54 PM LOFTER Legal Sex Male 9:06 AM LOFTER Gender Identity Male 07/09/2018 2:54 PM LOFTER Sexual Orientation Straight 07/09/2018 2: 54 PM LOFTER documented as of this encounter Progress Notes * Raven Sher, C.O.A. - 02/19/2015 4:37 PM CDT Eye Subsequent Visit HISTORY OF PRESENT ILLNESS Here for procedure. CDM Reports - EYESV Id: [id number] Status: Fnl documented in this encounter Plan of Treatment Not on file documented as of this encounter Visit Diagnoses Not on filedocumented in this encounter Additional Health Concerns Infection Onset Date Last Indicated Resolved Time COVID19 Pending 06/01/2020 06/01/2020 06/01/2020 9 :35 PM LOFTER COVID19 Pending 09/28/2020 09/28/2020 09/28/2020 1 2:02 PM CDT COVID19 Pending 01/13/2022 01/13/2022 01/13/2022 9 :52 PM CDT Assessment Noted Time PHQ-9 Depression Total Score: 7 09/21/19 11 11:02 AM CDT documented as of this encounter Care Teams Front Office Java Developer Relationship Specialty Start Date End Date Elsewhere, Pcp PCP - General Internal Medicine 02/01/23 documented as of this encounter
--- OUTSIDE RECORDS SUMMARY | 2024-05-10 13:45 | XMS_ITS ---
Author Organization [facility] Address [address] [place] [address] Care Team Providers Care Director Digital Strategy Name Role Phone Elsewhere, Pcp Primary Care Provider Unavailabl e Active Problems * This document contains information received from the source organization and may not represent a complete record from that organization. 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
--- OUTSIDE RECORDS SUMMARY | 2024-05-10 13:45 | XMS_ITS | Encounter Summary ---
Author Organization [facility] Address [address] [place] [address] Care Team Providers Care Roving Department End Finder Name Role Phone Elsewhere, Pcp Primary Care Provider Unavailabl e Encounter Details Date Type Department Care Team (Late st Contact Info) Description 10/28/2010 Historical Ophthalmology RST OPH Kenyon Lucas M.D. Social History Tobacco Use Types Packs/Day Years Used Date Smoking Tobacco: Never Assessed Sex and Gender Information Value Date Recorded Sex Assigned at Male 07/09/2018 2:54 PM SOLAR SALES REP Legal Sex Male 9:06 AM SOLAR SALES REP Gender Identity Male 07/09/2018 2:54 PM SOLAR SALES REP Sexual Orientation Straight 07/09/2018 2: 54 PM SOLAR SALES REP documented as of this encounter Progress Notes * Kenyon Lucas M.D. - 10/28/2010 3:05 PM CDT Eye Postoperative MULTI-VISIT DOCUMENT This document contains multiple patient visits and is available for review in Document Viewer. CDM Reports - EYEPO Id: [id number] Status: Fnl documented in this encounter Plan of Treatment Not on file documented as of this encounter Visit Diagnoses Not on filedocumented in this encounter Additional Health Concerns Infection Onset Date Last Indicated Resolved Time COVID19 Pending 06/01/2020 06/01/2020 06/01/2020 9 :35 PM SOLAR SALES REP COVID19 Pending 09/28/2020 09/28/2020 09/28/2020 1 2:02 PM CDT COVID19 Pending 01/13/2022 01/13/2022 01/13/2022 9 :52 PM CDT Assessment Noted Time PHQ-9 Depression Total Score: 7 09/21/19 11 11:02 AM CDT documented as of this encounter Care Teams Roving Department End Finder Relationship Specialty Start Date End Date Elsewhere, Pcp PCP - General Internal Medicine 02/01/23 documented as of this encounter
--- OUTSIDE RECORDS SUMMARY | 2024-05-10 13:45 | XMS_ITS | Encounter Summary ---
Author Organization [facility] Address [address] [place] [address] Care Team Providers Care Taker Down Name Role Phone Elsewhere, Pcp Primary Care Provider Unavailabl e Encounter Details Date Type Department Care Team (Late st Contact Info) Description 05/16/2012 Historical Ophthalmology RST OPH Kenyon Lucas M.D. Social History Tobacco Use Types Packs/Day Years Used Date Smoking Tobacco: Never Assessed Sex and Gender Information Value Date Recorded Sex Assigned at Male 07/09/2018 2:54 PM DECORATOR LIGHTING FIXTURES Legal Sex Male 9:06 AM DECORATOR LIGHTING FIXTURES Gender Identity Male 07/09/2018 2:54 PM DECORATOR LIGHTING FIXTURES Sexual Orientation Straight 07/09/2018 2: 54 PM DECORATOR LIGHTING FIXTURES documented as of this encounter Progress Notes [...] no biopsy -09/03; mushroom-shaped lesion (pigmented base [id number] with amelanotic apex; vascularization of apex without drusen or orange pigment; base 5mm from disc superonasally; Subretinal fluid surroundingbase; SD 360 degrees; invasion of choroidal mass into and under retina -US with mxawkl-fq-[id number] reflectivity and mushroom shape; extensive growth over [...] was discussed with the patient (or legal accounts payable representative and others present during the discussion). [...] FU for 3 more Avastin left eye [id number] apart with Dr. Medellin. FU in 4 [...] on nose CDM Reports - EYEGEN Id: [id number] Status: Fnl documented in this encounter Plan of Treatment Not on file documented as of this encounter Visit Diagnoses Not on filedocumented in this encounter Additional Health Concerns Infection Onset Date Last Indicated Resolved Time COVID19 Pending 06/01/2020 06/01/2020 06/01/2020 9 :35 PM DECORATOR LIGHTING FIXTURES COVID19 Pending 09/28/2020 09/28/2020 09/28/2020 1 2:02 PM CDT COVID19 Pending 01/13/2022 01/13/2022 01/13/2022 9 :52 PM CDT Assessment Noted Time PHQ-9 Depression Total Score: 7 09/21/19 11 11:02 AM CDT documented as of this encounter Care Teams Taker Down Relationship Specialty Start Date End Date Elsewhere, Pcp PCP - General Internal Medicine 02/01/23 documented as of this encounter
--- OUTSIDE RECORDS SUMMARY | 2024-05-10 13:45 | XMS_ITS | Encounter Summary ---
Author Organization [facility] Address [address] [place] [address] Care Team Providers Care Barge Loader Name Role Phone Elsewhere, Pcp Primary Care Provider Unavailabl e Encounter Details Date Type Department Care Team (Late st Contact Info) Description 02/13/2017 Historical Ophthalmology RST OPH Kenyon Lucas M.D. 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 Last cleaned at [facility] over a year ago. 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 Follow up six months with Abd US, LFTs, CXR, [...] was discussed with the patient (or legal treasury representative and others present during the discussion). [...] to continue with more Avastin left eye [id number] apart with Dr. Medellin. Will do Avastin [...] This was discussed with thepatient (or legal treasury representative and others present during discussion).. 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
[2024-05-14 12:10] LABS: Albumin 4.06 g/dL (3.75-5.01); Alpha 1 Globulin 0.28 g/dL (0.19-0.46); Immunofixation IFE Done; Immunoglobulin A 174 mg/dL (68-408); Immunoglobulin G 804 mg/dL (768-1632); Immunoglobulin M 72 mg/dL (35-263); Kappa Qnt Free Light Chains 22.24 mg/L (3.30-19.40); Kappa/Lambda Light Chain Ratio 1.35 (0.26-1.65); Lambda Qnt Free Light Chains 16.49 mg/L (5.71-26.30); Total Protein, Serum 6.4 g/dL (6.3-8.2)
== END 2024-05-10 13:39 | disposition home or self-care (01) ==
PROVIDERS: PCP Student in an Organized Health Care Education/Training Program; Visit Provider Internal Medicine Hematology & Oncology
DX: L29.9 Pruritus, unspecified (principal)
CPT/HCPCS: 36415; 82784; 83520; 84155; 84165; 86334

== ENCOUNTER 2025-02-14 06:51 | Outpatient (CLI) | payer MEDICARE, OTHER, SELFPAY | END 2025-02-14 06:52 | disposition home or self-care (01) | LOC: INJ CL 06:51 | PROVIDERS: PCP Student in an Organized Health Care Education/Training Program; Visit Provider Family Medicine | DX: M53.3 Sacrococcygeal disorders, not elsewhere classified (principal) | CPT/HCPCS: 27096; J0702; Q9966 ==